=== PATIENT | female | born 1945 | race Caucasian/White ===

== ENCOUNTER → 2017-04-30 11:07 | Outpatient (CLI) | payer MEDICARE, SELFPAY ==
[2017-04-30 12:43] LABS: AST(SGOT) 19 U/L (15-37); Alanine Aminotransfer ALT/SGPT 17 U/L (12-78); Albumin, Serum 3.4 g/dL (3.4-5.0); Alkaline Phosphatase 62 U/L (45-117); Cholesterol 186 mg/dL (200); Globulin 3.9 g/dL (2.2-4.2); High Density Lipoprotein 73 mg/dL; Protein, Total 7.3 g/dL (6.4-8.2); Triglycerides 128 mg/dL; Very Low Density Lipoprotein 26 mg/dL (5-40)
== END ==
PROVIDERS: Family Provider Internal Medicine; PCP Internal Medicine; Visit Provider Internal Medicine
DX: E78.00 Pure hypercholesterolemia, unspecified (principal)
CPT/HCPCS: 36415; 80061; 80076

== ENCOUNTER → 2017-05-14 08:48 | Outpatient (CLI) | payer MEDICARE, SELFPAY ==
[2017-05-14 08:56] LABS: Mucous, Urine 0 SEEN /hpf (<or=2+)
[2017-05-14 10:11] LABS: Color, Urine Yellow (Yellow); Glucose, Dipstick Normal (Normal); Ketone-Dipstick 5 mg/dl (Negative); Leukocyte Esterase-Dipstick 500 /ul (Negative); Nitrite-Dipstick Positive (Negative); Occult Blood-Urine 25 /ul (Negative); Protein-Dipstick 30 mg/dl (Negative); Specific Gravity, Urine 1.015 (1.002-1.030); Urine Bilirubin Dipstick Negative (Negative); Urine Clarity Turbid (Clear); Urine Urobilinogen Normal (Normal)
[2017-05-14 10:16] LABS: Absolute Lymphocyte Count 1.38 X10^3/ul (0.83-4.51); Absolute Neutrophil Count 6.2 X10^3/uL (2.0-7.7); Basophil# 0.03 X10^3/uL; Basophil% 0.4 % (0-1); Eosinophil# 0.15 X10^3/uL; Eosinophils% 1.8 % (0-5); Hematocrit 50.7 % (37-47); Hemoglobin 15.4 g/dl (12.0-15.0); Lymphocyte # 1.38 X10^3/ul (4.0); Lymphocyte % 16.8 % (19-41); Mean Corp Hgb Conc 30.4 g/gl (32-36); Mean Corpuscular Hgb 26.6 pg (27.0-32.0); Mean Corpuscular Volume 87.7 fL (81-99); Mean Platelet Vol. 9.9 fl (6.2-12.0); Monocyte% 4.9 % (0-10); Neutrophil # 6.22 X10^3/uL (2.7-7.7); Neutrophil % 75.9 % (47-70); POSITIVE COUNT NO; POSITIVE DIFFERENTIAL NO; POSITIVE MORPHOLOGY NO; Platelet Count 314 K/mm3 (150-450); RBC Distribution Width SD 47.7 fl (35.1-43.9); Red Blood Count 5.78 M/mm3 (4.2-5.4); White Blood Count 8.2 K/mm3 (4.4-11.0)
[2017-05-14 10:22] LABS: Bacteria 3+ /hpf (None Seen); Red Blood Cells-Urine 0-5 SEEN /hpf (0-5); Squamous Epithelial Cells - UA 0-5 SEEN /hpf (5-10); White Blood Cells 50-100 SEEN /hpf (0-5)
[2017-05-14 10:29] LABS: ALB/GLOB Ratio 1.1 RATIO (0.9-2.4); AST(SGOT) 13 U/L (15-37); Alanine Aminotransfer ALT/SGPT 19 U/L (13-56); Alkaline Phosphatase 87 U/L (45-117); Anion Gap 12 (5-15); BUN 11 mg/dL (7-18); BUN/Creat Ratio 12.6 RATIO (10-20); Calcium,Total 9.1 mg/dL (8.5-10.1); Chloride 102 mmol/L (98-107); Cholesterol 203 mg/dL (200); Creatinine, Serum 0.87 mg/dL (0.55-1.02); EST Glomerular Filtration Rate 68 mL/min (>60); Est Glom Filt Rate - Afr Amer 82 mL/min (>60); Ferritin 11 ng/mL (8-252); Globulin 3.8 g/dL (2.2-4.2); Glucose 111 mg/dL (74-106); High Density Lipoprotein 83 mg/dL; Iron 60 ug/dL (50-170); Iron Binding Capacity,Total 444 ug/dL (250-450); PERCENT IRON SATURATION 13.5 % (15.0-55.0); Potassium 3.9 mmol/L (3.5-5.1); Protein, Total 7.8 g/dL (6.4-8.2); Sodium Level 142 mmol/L (136-145); Thyroid Stim Hormone (TSH) 2.08 uIU/mL (0.358-3.74); Triglycerides 164 mg/dL; Very Low Density Lipoprotein 33 mg/dL (5-40)
[2017-05-14 10:40] LABS: Microalbumin:Creatinine Ratio 124.7 mg/g CRE (<30 mg/g CRE)
[2017-05-14 12:10] LABS: Vitamin B12 1008 pg/mL (211-911)
== END ==
PROVIDERS: Family Provider Internal Medicine; PCP Internal Medicine; Visit Provider Internal Medicine
DX: E61.1 Iron deficiency (principal); E11.9 Type 2 diabetes mellitus without complications; D51.8 Other vitamin B12 deficiency anemias
CPT/HCPCS: 36415; 80053; 80061; 81001; 82043; 82570; 82607; 82728; 83540; 83550; 84443; 85025

== ENCOUNTER → 2017-06-15 10:58 | Outpatient (CLI) | payer MEDICARE, SELFPAY | PROVIDERS: Family Provider Internal Medicine; PCP Internal Medicine; Visit Provider Internal Medicine | DX: R00.0 Tachycardia, unspecified (principal) | CPT/HCPCS: 93225; 93226 ==

== ENCOUNTER → 2017-07-19 10:45 | Outpatient (CLI) | payer MEDICARE, SELFPAY ==
--- NOTE | 2017-07-19 10:51 | BI_ITS ---
MAMMOGRAPHY - UNILATERAL SCREENING: LEFT BREAST REASON FOR EXAM: Female, 71 years old. Routine annual screening examination (unilateral). PERTINENT HISTORY: Personal history of breast cancer. Prior right mastectomy and chemotherapy. TECHNIQUE: Digital unilateral breast latanya (3D mammographic acquisition) in the CC and MLO projections. 2-D mediolateral oblique (MLO) and craniocaudad (CC) views of both breasts were obtained. CAD: Full Field Digital Mammography with Computer Added Detection was performed. COMPARISON: Comparison is made with prior study of June 17, 2016 and June 17, 2015. FINDINGS: Breast Composition: There are scattered areas of fibroglandular density. There are no dominant masses or suspicious calcifications. A tissue clip marker is once again seen in the retroareolar region of the left breast. No other significant abnormalities are identified. There has been no significant change since the prior study. BI/UNILAT LT SCRN W/CAD IMPRESSION: Stable unilateral screening mammogram. Yearly follow-up mammogram recommended. (A) ASSESSMENT CATEGORY: BIRADS Category 1: Negative. A letter regarding these results will be sent to the patient by the facility within 30 days. Approximately 10% of breast cancers are not detected by mammography. A normal mammogram should not delay biopsy of a clinically suspicious abnormality. [id number] Electronically Signed: Tae Ashford MD at 12:25 EDT Tel [phone], Service support ,
== END ==
PROVIDERS: Family Provider Internal Medicine; PCP Internal Medicine; Visit Provider Internal Medicine Hematology & Oncology
DX: Z12.31 Encounter for screening mammogram for malignant neoplasm of breast (principal)
CPT/HCPCS: 77061; 77067; G0279

== ENCOUNTER → 2017-07-29 13:46 | Outpatient (CLI) | payer MEDICARE, SELFPAY ==
--- NOTE | 2017-07-29 13:48 | CT_ITS ---
STUDY: CT ABDOMEN AND PELVIS WITHOUT CONTRAST REASON FOR EXAM: Female, 71 years old. Left sided pain RADIATION DOSAGE (If Supplied By Facility): CTDIvol = ( 13.5 ) mGy, DLP = ( 604.66 ) mGycm TECHNIQUE: Transaxial images were obtained from the dome of the diaphragm to the symphysis pubis without oral contrast, and without intravenous contrast. Sagittal and coronal images were reconstructed. Individualized dose optimization techniques were used for this CT. COMPARISON: None. FINDINGS: The visualized lung bases are unremarkable. The visualized portions of the heart are within normal limits. Normal liver. Status post cholecystectomy. No significant dilatation of the extrahepatic biliary system. Normal spleen. Normal pancreas. Normal bilateral adrenal glands. 5 mm probable cyst of the right kidney. Normal left kidney. Hiatal hernia. Prior surgery at the GE junction. Possible wall thickening at the third portion of the duodenum. Normal colon. The appendix is not visualized. Calcified abdominal aorta. Normal inferior vena cava. Normal retroperitoneum. Normal urinary bladder. Normal uterus. Normal abdominal wall. Normal osseous structures. CT/Abdomen/Pelvis without Cont IMPRESSION: Probable right renal cyst at the lower pole. Hiatal hernia. Possible wall thickening at the third portion of duodenum. No bowel obstruction. Electronically Signed: Ata Mary DO at 20:14 EDT Tel [phone], Service support ,
== END ==
PROVIDERS: Family Provider Internal Medicine; PCP Internal Medicine; Visit Provider Nurse Practitioner
DX: K44.9 Diaphragmatic hernia without obstruction or gangrene (principal); M54.9 Dorsalgia, unspecified
CPT/HCPCS: 74176

== ENCOUNTER → 2017-10-25 15:34 | Outpatient (CLI) | payer MEDICARE, SELFPAY | PROVIDERS: Visit Provider Nurse Practitioner Adult Health | DX: R82.99 Other abnormal findings in urine (principal) | CPT/HCPCS: 87077; 87086; 87088; 87186 ==

== ENCOUNTER → 2017-11-12 08:35 | Outpatient (CLI) | payer MEDICARE, SELFPAY ==
[2017-11-12 08:45] LABS: Bacteria 0 SEEN /hpf (None Seen); Mucous, Urine 0 SEEN /hpf (<or=2+); Red Blood Cells-Urine 0 SEEN /hpf (0-5)
[2017-11-12 10:02] LABS: Absolute Lymphocyte Count 1.18 X10^3/ul (0.83-4.51); Absolute Neutrophil Count 5.5 X10^3/uL (2.0-7.7); Basophil# 0.03 X10^3/uL; Basophil% 0.4 % (0-1); Eosinophil# 0.21 X10^3/uL; Eosinophils% 2.9 % (0-5); Hemoglobin 12.9 g/dl (12.0-15.0); Lymphocyte # 1.18 X10^3/ul (4.0); Lymphocyte % 16.1 % (19-41); Mean Corp Hgb Conc 30.7 g/gl (32-36); Mean Corpuscular Hgb 25.4 pg (27.0-32.0); Mean Corpuscular Volume 82.8 fL (81-99); Mean Platelet Vol. 9.4 fl (6.2-12.0); Monocyte# 0.39 X10^3/uL; Monocyte% 5.3 % (0-10); Neutrophil # 5.51 X10^3/uL (2.7-7.7); Neutrophil % 74.9 % (47-70); Platelet Count 308 K/mm3 (150-450); RBC Distribution Width CV 15.7 % (11.6-14.6); Red Blood Count 5.07 M/mm3 (4.2-5.4); White Blood Count 7.4 K/mm3 (4.4-11.0)
[2017-11-12 10:03] LABS: POSITIVE COUNT NO; POSITIVE DIFFERENTIAL NO; POSITIVE MORPHOLOGY NO
[2017-11-12 10:10] LABS: Color, Urine Yellow (Yellow); Glucose, Dipstick Normal (Normal); Ketone-Dipstick Negative (Negative); Leukocyte Esterase-Dipstick 500 /ul (Negative); Nitrite-Dipstick Positive (Negative); Occult Blood-Urine 10 /ul (Negative); Protein-Dipstick 30 mg/dl (Negative); Specific Gravity, Urine 1.015 (1.002-1.030); Urine Bilirubin Dipstick Negative (Negative); Urine Clarity Sl. Cloudy (Clear); Urine Urobilinogen Normal (Normal); Urine pH 6.5 (5.0 - 8.0)
[2017-11-12 10:24] LABS: ALB/GLOB Ratio 0.9 RATIO (0.9-2.4); AST(SGOT) 14 U/L (15-37); Alanine Aminotransfer ALT/SGPT 17 U/L (13-56); Albumin, Serum 3.4 g/dL (3.2-5.0); Alkaline Phosphatase 71 U/L (45-117); Anion Gap 11 (5-15); BUN 12 mg/dL (7-18); BUN/Creat Ratio 14.2 RATIO (10-20); Calcium,Total 9.2 mg/dL (8.5-10.1); Chloride 104 mmol/L (98-107); Cholesterol 161 mg/dL (200); Creatinine, Serum 0.84 mg/dL (0.55-1.02); EST Glomerular Filtration Rate 70 mL/min (>60); Est Glom Filt Rate - Afr Amer 85 mL/min (>60); Ferritin 7 ng/mL (8-252); Globulin 3.6 g/dL (2.2-4.2); Glucose 117 mg/dL (74-106); High Density Lipoprotein 66 mg/dL; Iron 38 ug/dL (50-170); Iron Binding Capacity,Total 373 ug/dL (250-450); PERCENT IRON SATURATION 10.2 % (15.0-55.0); Sodium Level 143 mmol/L (136-145); Thyroid Stim Hormone (TSH) 1.16 uIU/mL (0.358-3.74); Triglycerides 167 mg/dL; Very Low Density Lipoprotein 33 mg/dL (5-40)
[2017-11-12 10:25] LABS: Amorphous Sediment 1+; Squamous Epithelial Cells - UA 0-5 SEEN /hpf (5-10); White Blood Cells 5-10 SEEN /hpf (0-5)
[2017-11-12 10:34] LABS: Microalbumin,Random Urine 66.5 mg/L (NO RANGE EST.); Microalbumin:Creatinine Ratio 50.4 mg/g CRE (<30 mg/g CRE)
== END ==
PROVIDERS: Family Provider Internal Medicine; PCP Internal Medicine; Visit Provider Internal Medicine
DX: D51.8 Other vitamin B12 deficiency anemias (principal); D50.9 Iron deficiency anemia, unspecified; E11.42 Type 2 diabetes mellitus with diabetic polyneuropathy; R31.9 Hematuria, unspecified
CPT/HCPCS: 80053; 80061; 81001; 82043; 82570; 82728; 83540; 83550; 84443; 85025; 87086; 87088

== ENCOUNTER → 2018-03-17 09:45 | Outpatient (CLI) | payer MEDICARE, SELFPAY ==
--- NOTE | 2018-03-17 09:48 | NM_ITS ---
CLINICAL: 72-year-old female with reported history of carcinoma of the breast. WHOLE BODY 99m Tc MDP RADIONUCLIDE BONE SCINTIGRAPHY COMPARISON: None available FINDINGS: Following the intravenous administration of 25.7 mCi of 99m Tc MDP, whole body bone images reveal: 1. Increased radiopharmaceutical concentration is identified in the 10th thoracic vertebra posteriorly on the right, the medial and lateral tibiofemoral compartments of the right knee, acromioclavicular compartments of both shoulders, sternoclavicular compartment of the left shoulder, mid cervical spine posteriorly on the left and right, lower cervical spine posteriorly on the left, bilateral hip articulations, the right elbow, right-left midfoot. 2. The remaining skeletal structures are scintigraphically unremarkable with normal-appearing renal images and urinary bladder activity identified. NM/Bone Scan Whole Body IMPRESSION: 1. The increase in radiopharmaceutical concentration identified in the cervical and thoracic spine, bilateral shoulders, right elbow, right knee, hips bilaterally, right-left midfoot, is most consistent with degenerative arthritis. Plain film radiography correlation may be of benefit in the region of the 10th thoracic vertebra. 2. There is no definitive typical scintigraphic evidence of diffuse axial skeletal metastatic disease on the current examination. Electronically Signed: Ihsan Irvin DO at 23:23 EST Tel , Service support ,
--- OUTSIDE RECORDS SUMMARY | 2018-05-03 03:41 | XMS RPT_ITS ---
:1945 Author Organization [facility] Support Name Relationship Address Phone [address] TOLEDO [address] + [place] [address] [place] [id number] + [place] [address] R Unknown Unavailable Unavailable B[address]NA TOLEDO [address] + [place] [address] [address] + [place] [address] R Unknown Unavailable Unavailable B[address]O [address] + [place] [address] + [place] [address] R Unknown Unavailable Unavailable [address]O [address] + [place] [address] [address] + [place] [address] R Unknown Unavailable Unavailable Marv Toledo Mother Unavailable + Paris, Beena Grandparent Unavailable + Paris, Marv Mother Unavailable + Paris, Beena Grandparent Unavailable + Paris, Marv Mother Unavailable + Paris, Beena Grandparent Unavailable + [address] TOL[address]O [address] + [place] [address] [place] [id number] + [place] [address] R Unknown Unavailable Unavailable B[address]O [address] + [place] [address] [address]O [address] + [place] [address] R Unknown Unavailable Unavailable [place] [facility] [address] + [place] [address] [facility] [id number] [place] [address] RD + [place] [address] R Unknown Unavailable Unavailable [place] [facility] [address] + [place] [address] PARISFELICIA STONER [address] + [place] [address] R Unknown Unavailable Unavailable [place] [facility] [address] + [place] [address] PARISFELICIA STONER [facility] [id number] [place] [address] RD + [place] [address] R Unknown Unavailable Unavailable [place] [facility] [address] + [place] [address] FELICIA TOLEDO [address] + [place] [address] R Unknown Unavailable Unavailable Care Team Providers Name Role Phone ANTONIO TINAJERO (OUTBOARD MOTOR INSPECTOR) Attending Unavailable ANTONIO TINAJERO (OUTBOARD MOTOR INSPECTOR) Referring Unavailable ANTONIO TINAJERO (OUTBOARD MOTOR INSPECTOR) Attending Unavailable ANTONIO TINAJERO (OUTBOARD MOTOR INSPECTOR) Referring Unavailable Ricardo Lombardo Attending Unavailable Fe, Analilia Referring Unavailable Fe, Analilia Primary Care Unavailable Ricardo Lombardo Attending Unavailable Fe, Analilia Referring Unavailable Fe, Analilia Primary Care Unavailable Ricardo Lombardo Attending Unavailable Fe, Analilia Referring Unavailable Fe, Analilia Primary Care Unavailable Fe DO, Analilia Attending Unavailable Fe DO, Analilia Referring Unavailable Fe DO, Analilia Consulting Unavailable Antonio Tinajero FACT CHECKER-C Attending Unavailable Antonio Tinajero FACT CHECKER-C Referring Unavailable Fe, Analilia Primary Care Unavailable Fe, Analilia Attending Unavailable Fe, Analilia Referring Unavailable Fe, Analilia Primary Care Unavailable Fe, Analilia Attending Unavailable Fe, Analilia Referring Unavailable Fe, Analilia Primary Care Unavailable Fe, Analilia Attending Unavailable Fe, Analilia Primary Care Unavailable Fe, Analilia Referring Unavailable HinaGeorgeca Salud Consulting Unavailable Fe, Analilia Attending Unavailable Fe, Analilia Referring Unavailable Fe, Analilia Primary Care Unavailable Mascprimitivo, Tian Attending Unavailable Masci, Tian Referring Unavailable Fe, Analilia Primary Care Unavailable Rihcard Doss Attending Unavailable Fe, Analilia Referring Unavailable Ciesa, Brie Attending Unavailable Ciesa, Brie Referring Unavailable Fe, Analilia Primary Care Unavailable Hina, Minnie M Attending Unavailable Fe, Analilia Primary Care Unavailable Hina, Minnie M Referring Unavailable Hina, Minnie M Attending Unavailable Purpose Purpose PROBLEMS PROBLEMS DATE TYPE CONDITION / CODE ATTENDING STATUS SOURCE 10/26/2017 Unknown R82.99 - Other Minnie Santamaria abnormal findings M Community in urine / Hospital R82.99(ICD-10) Repository 09/14/2017 Admitting Gastro-esophageal Pozsgay, TiVUS Diagnosis reflux disease System without esophagitis Repository / K21.9(ICD-10) 09/14/2017 Admitting Acquired absence of Pozsgay, TiVUS Diagnosis other specified System parts of digestive Repository tract / Z90.49(ICD-10) 09/14/2017 Admitting Unspecified Pozsgay, TiVUS Diagnosis osteoarthritis, System unspecified site / Repository M19.90(ICD-10) 09/14/2017 Admitting Anemia, unspecified Pozsgay, TiVUS Diagnosis / D64.9(ICD-10) System Repository 09/10/2017 Admitting Diaphragmatic Pozsgay, TiVUS Diagnosis hernia without System obstruction or Repository gangrene / K44.9(ICD-10) 09/10/2017 Admitting Right upper Pozsgay, TiVUS Diagnosis quadrant pain / System R10.11(ICD-10) Repository 07/19/2017 Unknown Z12.31 - Encounter Tian Raya Active Tatiana for screening Community mammogram for Hospital malignant neoplasm Repository of breast / Z12.31(ICD-10) 07/16/2017 Unknown R00.0 - Richard Doss Active [place] Tachycardia, Community unspecified / Hospital R00.0(ICD-10) Repository 05/14/2017 Unknown E61.1 - Iron Fe, Active [place] deficiency / [facility] E61.1(ICD-10) Hospital Repository 05/14/2017 Unknown E11.9 - Type 2 Fe, Active [place] diabetes mellitus [facility] without Hospital complications / Repository E11.9(ICD-10) PROCEDURES PROCEDURES No Procedure Records FoundVITAL SIGNS VITAL SIGNS No Vital Signs Records FoundRESULTS RESULTS BONE SCAN WHOLE Observed: 03/17/2018 Status: F Source: [place] BODY 9:48 AM [facility] REPOSITORY [facility] Imaging Services [address] [address] Bone Scan Whole Body MR#: [id number] Acct: [id number] Name: HERNESTO TOLEDO Rep #: [id number] : 1945 F 72 From: Ihsan Irvin DO PCP: Analilia Palacios DO Status: REG CLI Study: Bone Scan Whole Body Date of Exam: 03/17/18 Exam# [id number] Ordering Dr: Antonio Tinajero FACT CHECKER-C CLINICAL: 72-year-old female with reported history of carcinoma of the breast. WHOLE BODY 99m Tc MDP RADIONUCLIDE BONE SCINTIGRAPHY COMPARISON: None available FINDINGS: Following the intravenous administration of 25.7 mCi of 99m Tc MDP, whole body bone images reveal: 1. Increased radiopharmaceutical concentration is identified in the 10th thoracic vertebra posteriorly on the right, the medial and lateral tibiofemoral compartments of the right knee, acromioclavicular compartments of both shoulders, sternoclavicular compartment of the left shoulder, mid cervical spine posteriorly on the left and right, lower cervical spine posteriorly on the left, bilateral hip articulations, the right elbow, right-left midfoot. 2. The remaining skeletal structures are scintigraphically unremarkable with normal-appearing renal images and urinary bladder activity identified. NM/Bone Scan Whole Body IMPRESSION: 1. The increase in radiopharmaceutical concentration identified in the cervical and thoracic spine, bilateral shoulders, right elbow, right knee, hips bilaterally, right-left midfoot, is most consistent with degenerative arthritis. Plain film radiography correlation may be of benefit in the region of the 10th thoracic vertebra. 2. There is no definitive typical scintigraphic evidence of diffuse axial skeletal metastatic disease on the current examination. Electronically Signed: Ihsan Irvin DO at 23:23 EST Tel , Service support , CC: MOI- Antonio Tinajero; Analilia Palacios DO [employer]visor [employer] Former: Signed CNOVSP Observed: 03/14/2018 Status: COMPLETED Source: [place] 1:30 PM [facility] REPOSITORY Visit (SP) Office ([place]) HERNESTO TOLEDO ([id number]) 1945 F [facility] Date Time Provider Department 03/14/18 1:30 PM ANTONIO TINAJERO During your visit today, we recorded the following information about you: Temperature Pulse Blood pressure Weight 98.1 degrees 108/minute 126/75 65.8 kg Antonio Tinajero, MANAGER SHIFT.OUTBOARD MOTOR INSPECTOR 03/15/2018 8:16 AM Signed Chief Complaint No chief complaint on file. HPI: Hernesto Toledo is a 72 year old female who presents here today for follow up breast cancer. H/o appreciated a mass in her right breast. Diagnostic mammogram at 10 o'clock 3 cm from nipple was observed. It was solid on US. ?? Biopsy 06/28/2013: Invasive ductal carcinoma. ER>95% VA 2% HER2 2+ Non-amplified by FISH testing. ?? Mastectomy with SLN biopsy 07/12/2013: 3.5 cm invasive ductal carcinoma. Grade III Margins negative--closest 5 mm posterior. No LV invasion. None of 4 SLN involved. ?? Oncotype Dx--Recurrence score 30 (20% risk). Received TC. ?? Pt. admitted to [facility] for neutropenia/UTI 11/17-11/20/13. ? Current therapy:Arimidex Began 12/2013. ? Per Dr. Raya's previous note pt. was to have rib xrays and bone scan at [facility] 2016. Pt. did not have this done. I keep forgetting. ? My R knee has arthritis. I have this tenderness to my left breast that comes and goes. It really hurts if you mash on it. ? Appetite:It's good?Energy level:fair Denies fevers or recent illness. Resp:denies cough or sob Cardiac:denies chest pain/palpitations GI:denies abd pain sometimes I get pain where that mesh is after my hiatal hernia repair, the reflux is bad, my hiatal hernia is back.- This has been evaluated by her surgeon. I'm not having a surgery again, occasional n/v, moving bowels regularly-occ. constipation :denies dysuria/hematuria Extrem:R knee pain, occ. low back pain h/o DJD, denies pain currently Endo:I don't get hot flashes-I will just sometimes break out in a sweat. 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 Past medical history, appointments, medications, allergies reviewed. No changes. EXAM: BP 126/75 Pulse 108 Temp 36.7 ?C (98.1 ?F) Wt 65.8 kg (145 lb) BMI 29.29 kg/m? APPEARANCE Well appearing, anxious, alert, in no acute distress, well-hydrated, well nourished. HEART RRR with normal S1 and S2, no murmurs LUNG clear to auscultation BREAST FEMALE R mastectomy scar, no nodule, L no mass/nodule, +tenderness to outer L breast LYMPH NODES No cervical lymphadenopathy, No supraclavicular lymphadenopathy and No axillary lymphadenopathy. ABDOMEN bowel sounds normoactive, no bruits, soft, non-tender, non-distended, without organomegaly or palpable masses EXTREMITIES No edema NEURO Awake, alert and oriented x 3, Normal gait and No involuntary motions. SKIN Skin color, texture, turgor normal, no suspicious rashes or lesions ASSESSMENT/PLAN: 1. 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 2. Breast pain, left - ICD9: 611.71, ICD10: N64.4 - L breast pain. - Continue arimidex-tolerating well. - L mammogram due in July 2018. - See Dr. Raya's previous AVS (01/2017). Pt. did not have the bone scan or rib xrays at [facility]. Please schedule. - Add L dx mamm/US L breast re:L breast pain. - Follow up in 6 months-pending the above. - Pt. aware to call office with any questions/concerns. The patient indicates understanding of these issues and agrees with the plan. Antonio Tinajero APRN.OUTBOARD MOTOR INSPECTOR Glenna Cordova LPN, ERIK 03/14/2018 1:30 PM Signed 6 month f/u Glenna Cordova LPN Referring Provider: ANTONIO TINAJERO [[id number]] Allergies As of Date: 03/14/2018 Noted Allergy Reaction MORPHINE 12/15/2006 2 - Rash Comments: Broke out in rash 25 years ago Date Reviewed: 03/14/2018 Reviewed by: Antonio Tinajero - Fully Assessed Primary Visit Diagnosis:Malignant neoplasm of upper-outer quadrant of right breast in female, estrogen receptor positive (HCC) [C50.411, Z17.0] Other Visit Diagnosis:Breast pain, left [N64.4] Order(s):NM BONE WHOLE BODY [2619992] Order #: [id number] FUTURE XR RIBS 2V AP/OBL LT [[id number]] Order #: [id number] FUTURE US BREAST LTD LT [[id number]] Order #: [id number] FUTURE DOMINGO DIAGNOSTIC LT [[id number]] Order #: [id number] FUTURE Follow-up and Disposition History Recorded Prescriptions as of 03/14/2018 Sig: ANASTROZOLE 1 MG TABLET TAKE ONE TABLET BY MOUTH ONCE* ATORVASTATIN 10 MG TABLET 1 tablet once daily. CALCIUM ORAL Take 1 tablet by mouth once d* AZO CRANBERRY ORAL Take 1 tablet by mouth once d* FISH OIL ORAL Take 1 capsule by mouth once * DULOXETINE 60 MG CAPSULE,STEPHEN* Take 60 mg by mouth once lacho* GABAPENTIN 300 MG CAPSULE Take 1 capsule by mouth three* PROBIOTIC ORAL Take 1 capsule by mouth once * MEDICATION, NON-DATABASE Magna-life cream for neuropat* METFORMIN ER 500 MG TABLET,EX* Take 500 mg by mouth once sam* MULTIVITAMIN TABLET Take 1 tablet by mouth once d* NAPROXEN SODIUM 220 MG TABLET Take 440 mg by mouth as neede* OMEPRAZOLE 40 MG CAPSULE,STEPHEN* Take 40 mg by mouth once lacho* VITAMIN D2 50,000 UNIT CAPSULE 1 tablet once each week. Medication notes this encounter CHOLECALCIFEROL (VITAMIN D3) 2,000 UNIT TABLET >> Glenna Cordova LPN, LPN 03/14/2018 1:22 PM >> GLENNA CORDOVA WedMar 14, 2018 1:22 PM discontinued ETODOLAC 400 MG TABLET >> Glenna Cordova LPN, LPN 03/14/2018 1:26 PM >> GLENNA CORDOVA WedMar 14, 2018 1:26 PM discontinued Problem List As Of Date 03/14/2018 Noted Resolved Hiatal Hernia [K44.9] INVALID FOR* Iron Deficiency Anemia [D50.9] INVALID FOR* Abnormal mammogram, unspecified [R92.8] INVALID FOR* Lump or mass in breast [N63.0] INVALID FOR* Breast cancer (HCC) [C50.919] INVALID FOR*01/26/2017 Cellulitis [L03.90] INVALID FOR* Drug induced neutropenia(288.03) (HCC) [D70.2] INVALID FOR* Breast lump [N63.0] INVALID FOR* Malignant neoplasm of upper-outer quadrant of r*INVALID FOR* Visit Notes: >> Glenna Whyte (Erik) ERIK Cordova WedMar 14, 2018 1:27 PM Status: Signed 6 month f/u Glenna Cordova LPN Encounter Status:Closed by ANTONIO TINAJERO CNP on 03/15/18 PROGRESS Observed: 03/14/2018 Status: COMPLETED Source: [place] 1:20 PM [facility] RE[facility]IT[facility] HNO ID: [id number] Author: Antonio Tinajero Service: (none) Author Type: Nurse Practitioner Type: Progress Notes Filed: 03/15/2018 8:16 AM Note Text: Chief Complaint No chief complaint on file. HPI: Hernesto Toledo is a 72 year old female who presents here today for follow up breast cancer. H/o appreciated a mass in her right breast. Diagnostic mammogram at 10 o'clock 3 cm from nipple was observed. It was solid on US. ?? Biopsy 06/28/2013: Invasive ductal carcinoma. ER>95% VA 2% HER2 2+ Non-amplified by FISH testing. ?? Mastectomy with SLN biopsy 07/12/2013: 3.5 cm invasive ductal carcinoma. Grade III Margins negative--closest 5 mm posterior. No LV invasion. None of 4 SLN involved. ?? Oncotype Dx--Recurrence score 30 (20% risk). Received TC. ?? Pt. admitted to [facility] for neutropenia/UTI 11/17-11/20/13. ? Current therapy:Arimidex Began 12/2013. ? Per Dr. Raya's previous note pt. was to have rib xrays and bone scan at [facility] 2016. Pt. did not have this done. I keep forgetting. ? My R knee has arthritis. I have this tenderness to my left breast that comes and goes. It really hurts if you mash on it. ? Appetite:It's good?Energy level:fair Denies fevers or recent illness. Resp:denies cough or sob Cardiac:denies chest pain/palpitations GI:denies abd pain sometimes I get pain where that mesh is after my hiatal hernia repair, the reflux is bad, my hiatal hernia is back.-This has been evaluated by her surgeon. I'm not having a surgery again, occasional n/v, moving bowels regularly-occ. constipation :denies dysuria/hematuria Extrem:R knee pain, occ. low back pain h/o DJD, denies pain currently Endo:I don't get hot flashes-I will just sometimes break out in a sweat. 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 Past medical history, appointments, medications, allergies reviewed. No changes. EXAM: BP 126/75 Pulse 108 Temp 36.7 ?C (98.1 ?F) Wt 65.8 kg (145 lb) BMI 29.29 kg/m? APPEARANCE Well appearing, anxious, alert, in no acute distress, well-hydrated, well nourished. HEART RRR with normal S1 and S2, no murmurs LUNG clear to auscultation BREAST FEMALE R mastectomy scar, no nodule, L no mass/nodule, +tenderness to outer L breast LYMPH NODES No cervical lymphadenopathy, No supraclavicular lymphadenopathy and No axillary lymphadenopathy. ABDOMEN bowel sounds normoactive, no bruits, soft, non-tender, non-distended, without organomegaly or palpable masses EXTREMITIES No edema NEURO Awake, alert and oriented x 3, Normal gait and No involuntary motions. SKIN Skin color, texture, turgor normal, no suspicious rashes or lesions ASSESSMENT/PLAN: 1. 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 2. Breast pain, left - ICD9: 611.71, ICD10: N64.4 - L breast pain. - Continue arimidex-tolerating well. - L mammogram due in July 2018. - See Dr. Raya's previous AVS (01/2017). Pt. did not have the bone scan or rib xrays at [facility]. Please schedule. - Add L dx mamm/US L breast re:L breast pain. - Follow up in 6 months-pending the above. - Pt. aware to call office with any questions/concerns. The patient indicates understanding of these issues and agrees with the plan. Antonio Tinajero APRN.OUTBOARD MOTOR INSPECTOR CBC W/DIFF, AUTOMATED Collected: 11/12/2017 Status: F Source: [place] 8:42 AM [facility] REPOSITORY Order Comment: MORE ORDERED CULTURE DR PALACIOS ORDERED ALL OTHER LABS TYPE CODE TESTS RESULT OUT OF RANGE REFERENCE UNITS LAB L100.1000 4.4-11.0 K/mm3 Normal WBC 7.4 LAB L100.1200 4.2-5.4 M/mm3 Normal RBC 5.07 LAB L100.1300 12.0-15.0 g/dl Normal HGB 12.9 LAB L100.1400 37-47 % Normal HCT 42.0 LAB L100.1500 81-99 fL Normal MCV 82.8 LAB L100.1600 27.0-32.0 pg Low MCH 25.4 LAB L100.1700 32-36 g/gl Low MCHC 30.7 LAB L100.1810 11.6-14.6 % High RDW CV 15.7 LAB L100.1820 35.1-43.9 fl High RDW SD 47.0 LAB L100.1900 150-450 K/mm3 Normal PLT 308 LAB L100.2000 6.2-12.0 fl Normal MPV 9.4 LAB L100.2100 47-70 % High NEUT% 74.9 LAB L100.2200 19-41 % Low LY% 16.1 LAB L100.2300 0-10 % Normal MONO% 5.3 LAB L100.2400 0-5 % Normal EO% 2.9 LAB L100.2500 0-1 % Normal BASO% 0.4 LAB L100.2550 0.0-0.9 % Normal IM GRAN % 0.400 Result Comment: IG% - Immature Granulocytes (promyelocytes, myelocytes and metamyelocytes) > 1% indicates that a LEFT SHIFT is Present. LAB L100.2620 2.0-7.7 X10 3/uL Normal Absolute Neut 5.5 LAB L100.2720 0.83-4.51 X10 3/ul Normal Absolute Lymph 1.18 Performed By: #### L100.0100 #### [facility] [address] [place], [address] URINALYSIS, COMPLETE Collected: 11/12/2017 Status: F Source: [place] 8:42 AM [facility] REPOSITORY Order Comment: MORE ORDERED CULTURE DR PALACIOS ORDERED ALL OTHER LABS How was Urine Obtained? CLEAN CATCH TYPE CODE TESTS RESULT OUT OF RANGE REFERENCE UNITS LAB L400.3000 Yellow COLOR Normal Yellow LAB L400.3050 Clear Normal CLARITY Sl. Cloudy LAB L400.3200 Normal mg/dl Normal GLUCOSE, UR Normal LAB L400.3300 Negative mg/dL Normal BILIRUBIN URINE Negative LAB L400.3400 Negative mg/dl Normal KETONE UR Negative LAB L400.3465 1.002-1.030 Normal SP.GR. DIPSTX 1.015 LAB L400.3550 5.0 - 8.0 pH UR Normal 6.5 LAB L400.3600 Negative mg/dl High PROT 30 DIPSTX LAB L400.3700 Normal mg/dl Normal UROBILI Normal LAB L400.3750 Negative High NITRITE UR Positive LAB L400.3780 Negative /ul High 10 OCCULT BLOOD-UR LAB L400.3800 Negative /ul High LEUK ESTERASE 500 LAB L400.4050 0-5 /hpf WBC Normal 5-10 SEEN LAB L400.4100 0-5 /hpf 0 Normal RBC-UA SEEN LAB L400.4150 5-10 /hpf SQUAM Normal EPI 0-5 SEEN LAB L400.4300 None Seen /hpf 0 Normal BACTERIA SEEN LAB L400.4350 <or=2+ /hpf 0 Normal MUCUS, URINE SEEN LAB L400.4900 1+ Normal AMORPHOUS Performed By: #### L400.0001 #### [facility] [address] [place], [address] COMPREHENSIVE METABOLIC Collected: 11/12/2017 Status: F Source: [facility] 8:42 AM [facility] REPOSITORY Order Comment: MORE ORDERED CULTURE DR PALACIOS ORDERED ALL OTHER LABS TYPE CODE TESTS RESULT OUT OF RANGE REFERENCE UNITS LAB L501.0100 74-106 mg/dL High GLU 117 Result Comment: Fasting Glucose result from 100 to 125 mg/dL suggests IMPAIRED HOMEOSTASIS per A.D.A. criteria. Please note revised GLUCOSE reference range effective 2017. LAB L501.1000 7-18 mg/dL Normal BUN 12 LAB L501.1100 0.55-1.02 mg/dL Normal CREAT,SERUM 0.84 Result Comment: The validity of the calculated GFR AND GFRAA in patients over 70 years has not been determined. Clinical correlation is essential. LAB L501.1110 >60 mL/min Normal EST GFR 70 Result Comment: Non- GFR Calc LAB L501.1115 >60 mL/min Normal EST GFR - AA 85 Result Comment: GFR Calc LAB L501.1300 10-20 RATIO Normal BUN/CRE 14.2 LAB L501.1500 6.4-8.2 g/dL T Normal PROT 7.0 LAB L501.1800 3.2-5.0 g/dL Normal ALB 3.4 LAB L501.1950 2.2-4.2 g/dL Normal GLOB 3.6 LAB L501.2000 0.9-2.4 RATIO Normal A/G 0.9 LAB L501.2200 8.5-10.1 mg/dL CA Normal 9.2 LAB L501.4100 15-37 U/L Low AST 14 LAB L501.4305 45-117 U/L Normal ALK P 71 LAB L501.4405 13-56 U/L Normal ALT 17 LAB L501.4600 0.20-1.00 mg/dL T Normal BILI 0.40 LAB L501.5300 136-145 mmol/L NA Normal 143 LAB L501.5600 3.5-5.1 mmol/L K Normal 4.0 LAB L501.5900 98-107 mmol/L CL Normal 104 LAB L501.6100 21.0-32.0 mmol/L Normal CO2 28.0 LAB L501.6200 5-15 Normal GAP 11 Performed By: #### L500.4050, L500.4100, L501.9520, L503.6030, L503.6550 #### [facility] [address] [place], [address] LIPID PROFILE Collected: 11/12/2017 Status: F Source: [place] 8:42 AM [facility] REPOSITORY Order Comment: MORE ORDERED CULTURE DR PALACIOS ORDERED ALL OTHER LABS TYPE CODE TESTS RESULT OUT OF RANGE REFERENCE UNITS LAB L501.4900 200 mg/dL Normal CHOL 161 Result Comment: <200 mg/dL Desirable 200-240 mg/dL Borderline >240 mg/dL High Risk LAB L501.5000 mg/dL Normal TRIG 167 Result Comment: The drugs N-Acetylcysteine and Metamizole may falsely depress this assay. Serum Triglycerides Reference Interval Normal <150 mg/dL Borderline high 150 - 199 mg/dL High 200 - 499 mg/dL Very High > or = 500 mg/dL LAB L501.6400 mg/dL Normal HDL 66 Result Comment: The drugs N-Acetylcysteine and Metamizole may falsely depress this assay. Reference Range HDL <40 mg/dL Low HDL Cholesterol HDL >or= 60 mg/dL High HDL Cholesterol LAB L501.6500 0-130 mg/dL Normal LDL 62 LAB L501.6600 5-40 mg/dL Normal VLDL 33 Performed By: #### L500.4050, L500.4100, L501.9520, L503.6030, L503.6550 #### [facility] [address] [place], [address] THYROID STIM HORMONE Collected: 11/12/2017 Status: F Source: [place] ([facility]) 8:42 AM [facility] REPOSITORY Order Comment: MORE ORDERED CULTURE DR PALACIOS ORDERED ALL OTHER LABS TYPE CODE TESTS RESULT OUT OF RANGE REFERENCE UNITS LAB L501.9520 0.358-3.74 uIU/mL Normal TSH 1.16 Performed By: #### L500.4050, L500.4100, L501.9520, L503.6030, L503.6550 #### [facility] [address] [place], [place], [id number] [phone] IRON+IRON BINDING Collected: 11/12/2017 Status: F Source: [place] 8:42 AM [facility] REPOSITORY Order Comment: MORE ORDERED CULTURE DR PALACIOS ORDERED ALL OTHER LABS TYPE CODE TESTS RESULT OUT OF RANGE REFERENCE UNITS LAB L503.6075 250-450 ug/dL TIBC Normal 373 LAB L503.6150 50-170 ug/dL Low IRON 38 LAB L503.6250 15.0-55.0 % Low IRON SATURATION 10.2 Performed By: #### L500.4050, L500.4100, L501.9520, L503.6030, L503.6550 #### [facility] [address] [place], [address] FERRITIN Collected: 11/12/2017 Status: F Source: [place] 8:42 AM [facility] REPOSITORY Order Comment: MORE ORDERED CULTURE DR PALACIOS ORDERED ALL OTHER LABS TYPE CODE TESTS RESULT OUT OF REFERENCE UNITS RANGE LAB L503.6550 8-252 ng/mL Low FERRITIN 7 Performed By: #### L500.4050, L500.4100, L501.9520, L503.6030, L503.6550 #### [facility] [address] [place], [address] MICROALB:CREAT Collected: 11/12/2017 Status: F Source: [place] RATIO,RANDOM UR 8:42 AM [facility] REPOSITORY Order Comment: MORE ORDERED CULTURE DR PALACIOS ORDERED ALL OTHER LABS TYPE CODE TESTS RESULT OUT OF RANGE REFERENCE UNITS LAB L501.1200 NO RANGE EST. mg/dL Normal UR CREAT 132.00 LAB L502.0500 NO RANGE EST. mg/L Normal 66.5 MICROALBUMIN ,UR LAB L502.0600 <30 mg/g CRE mg/g CRE High 50.4 MALB:CREAT Performed By: #### L502.0250 #### [facility] [address] [facility] [place], [place], [address] Observed: 11/12/2017 Status: F Source: [place] CULTURE, [place] 8:42 AM [facility] REPOSITORY MORE ORDERED CULTURE DR PALACIOS ORDERED ALL OTHER LABS Urine Culture ORGANISM 1: Mixed Gram Positive Organisms Slick Count 11,000-25,000 MIX CULTURE Mixed contaminants. Submit a new specimen if indicated. Performed By: #### M100.0650 #### [facility] [address] [facility] [place], [address] Observed: 10/25/2017 Status: F Source: [place] CULT[place], URINE 10:45 AM [facility] REPOSITORY Urine Culture ORGANISM 1: Citrobacter freundii Slick Count >100,000 Citrobacter freundii: REACTION Amikacin $ <=2 S Amoxacillin/Clavulanic Acid $ >=32 R Aztreonam $$$ 16 I Cefazolin $ >=64 R Cefepime $ <=1 S Ceftriaxone $ 16 I Ciprofloxacin $ >=4 R Ertapenim $$$ <=0.5 S Gentamicin $ <=1 S Imipenem *NF 0.5 S Levofloxacin $ >=8 R Meropenem $ <=0.25 S Nitrofurantoin $ <=16 S Tobramycin $ <=1 S Trimethoprim/Sulfametho $ >=320 R (NF) indicates non-formulary drug at [facility]. Approval by Infectious Disease Specialist required before non-formulary drugs may be ordered and/or dispensed. Citrobacter freundii: REACTION Amoxacillin/Clavulanic Acid $ >=32 R Cefazolin $ >=64 R Cefepime $ <=1 R Ceftriaxone $ 16 R Ciprofloxacin $ >=4 R Gentamicin $ <=1 S Imipenem *NF 0.5 R Levofloxacin $ >=8 R Nitrofurantoin $ <=16 S Tobramycin $ <=1 S Trimethoprim/Sulfametho $ >=320 R (NF) indicates non-formulary drug at [facility]. Approval by Infectious Disease Specialist required before non-formulary drugs may be ordered and/or dispensed. Performed By: #### M100.0650 #### [facility] [address] [place], [address] Observed: 09/14/2017 Status: F Source: [facility] SURGICAL PATHOLOGY 7:09 AM SYSTEM REPOSITORY [id number] [facility] PATHOLOGY AND LABORATORY MEDICINE [address] [place] [address] [id number] FINAL SURGICAL PATHOLOGY REPORT NAME: HERNESTO TOLEDO : 1945 71 Y F BILLING NO.: [id number] LOCATION: 1XEO PROCEDURE 09/14/2017 DATE: SURGEON: RICARDO LOMBARDO DO RECEIVED 09/14/2017 DATE: ATTENDING: RICARDO LOMBARDO DO REPORT DATE: 09/15/2017 COPIES TO: DIAGNOSIS: ESOPHAGUS, BIOPSY - UNREMARKABLE SQUAMOUS MUCOSA NEGATIVE FOR INTESTINAL METAPLASIA IVN/MARY JANE <Sign Out Dr. Hernadez> YVAN MEJIA M.D. CLINICAL INFORMATION: Abdominal pain SPECIMEN: ESOPHAGUS BIOPSY GROSS DESCRIPTION: Esophageal biopsies Received in formalin are multiple fragments of hall-white soft tissue aggregating to 0.5 x 0.3 x 0.1. The specimen is entirely submitted in a single cassette. (bits ns, 1) IVN/DENNY Disclaimer: The following statement applies to all immunohistochemistry, in situ hybridization, molecular studies, and immunofluorescence testing. The use of one or more reagents in the above tests is regulated as an analyte specific reagent (ASR). These tests were developed and their performance characteristics determined by the clinical laboratories of [facility]. They have not been cleared by the US Food and Drug Administration (FDA). The FDA has determined that such clearance or approval is not necessary. All the above immunostains were performed on paraffin embedded tissue. Appropriate positive and negative controls (where applicable) were run in parallel with the patient's specimen; these controls showed expected staining pattern, with acceptable intensity of staining. Immunohistochemical assays have not been validated on decalcified tissues. Results should be interpreted with caution given the raised possibility of false negativity on decalcified specimens. Professional Performing Location: [address] [address]. DEPARTMENT OF PATHOLOGY AND LABORATORY MEDICINE [place], [place] [address] RF UGI W/O KUB W/ Observed: 09/10/2017 Status: F Source: [facility] OR W/O DELAY FLM 9:41 AM SYSTEM REPOSITORY Patient Name: HERNESTO TOLEDO Fluoroscopy Exam Date/Time 09/10/2017 09:13:20 EDT Exam RF UGI w/o KUB and w/ or w/o Delay Flm Ordering Physician DO XIOMARA RICARDO Accession Number [id number] [facility] Codes 81033 () Reason For Exam recurrent hiatal hernia pain Report AIR CONTRAST UGI SERIES History: Left upper quadrant pain. Gastroesophageal reflux. Prior hiatal hernia repair. Comparison: 11/16/2010; 02/12/2010; 11/19/2009 Technique: Biphasic exam performed with barium and air. Fluoroscopy Time: 2.22 minutes 28 fluoroscopic spot images were obtained. Findings: Barium and air are administered. The esophagus is studied in the upright as well as the horizontal positions. There is a moderate-sized hiatal hernia with spontaneous gastroesophageal reflux to the upper esophagus. The esophagus is otherwise unremarkable. There is mild deformity of the gastric fundus in accordance with prior Anthony fundoplication. Multiple surgical clips are noted. The distal stomach is otherwise unremarkable and it empties without delay into an intact duodenal bulb and loop. The visualized proximal jejunum is unremarkable. A 13 mm barium tablet was given and traverses the esophagus into the stomach without delay. IMPRESSION: Moderate size hiatus hernia with gastroesophageal reflux. Anthony fundoplication with postsurgical changes at the gastric fundus. Unremarkable duodenum. Report Dictated on Final Dictating Physician: MD MUNROE AHMAD Signed Date and Time: 09/10/2017 10:50 am Signed by: MD MUNROE AHMAD Transcribed Date and Time: 09/10/2017 10:51 ABDOMEN/PELVIS WITHOUT Observed: 07/29/2017 Status: F Source: [place] CONT 1:48 PM [facility] REPOSITORY [facility] Imaging Services [address] [place] [address] Abdomen/Pelvis without Cont MR#: [id number] Acct: [id number] Name: HERNESTO TOLEDO Rep #: [id number] : 1945 F 71 From: Ata Mary DO PCP: Analilia Palacios DO Status: REG CLI Study: Abdomen/Pelvis without Cont Date of Exam: 07/29/17 Exam# [id number] Ordering Dr: Brie Blas STUDY: CT ABDOMEN AND PELVIS WITHOUT CONTRAST REASON FOR EXAM: Female, 71 years old. Left sided pain RADIATION DOSAGE (If Supplied By Facility): CTDIvol = ( 13.5 ) mGy, DLP = ( 604.66 ) mGycm TECHNIQUE: Transaxial images were obtained from the dome of the diaphragm to the symphysis pubis without oral contrast, and without intravenous contrast. Sagittal and coronal images were reconstructed. Individualized dose optimization techniques were used for this CT. COMPARISON: None. FINDINGS: The visualized lung bases are unremarkable. The visualized portions of the heart are within normal limits. Normal liver. Status post cholecystectomy. No significant dilatation of the extrahepatic biliary system. Normal spleen. Normal pancreas. Normal bilateral adrenal glands. 5 mm probable cyst of the right kidney. Normal left kidney. Hiatal hernia. Prior surgery at the GE junction. Possible wall thickening at the third portion of the duodenum. Normal colon. The appendix is not visualized. Calcified abdominal aorta. Normal inferior vena cava. Normal retroperitoneum. Normal urinary bladder. Normal uterus. Normal abdominal wall. Normal osseous structures. CT/Abdomen/Pelvis without Cont IMPRESSION: Probable right renal cyst at the lower pole. Hiatal hernia. Possible wall thickening at the third portion of duodenum. No bowel obstruction. Electronically Signed: Ata Mary DO at 20:14 EDT Tel [phone], Service support , CC: Brie Blas NP; Analilia Palacios DO [employer] Former: Signed PROGRESS Observed: 07/28/2017 Status: COMPLETED Source: [place] 10:39 AM [facility] REPOSITORY HNO ID: [id number] Author: Antonio Tinajero Service: (none) Author Type: Nurse Practitioner Type: Progress Notes Filed: 07/29/2017 8:28 AM Note Text: Chief Complaint Patient presents with: Established Patient HPI: Hernesto Toledo is a 71 year old female who presents here today for follow up breast cancer. H/o appreciated a mass in her right breast. Diagnostic mammogram at 10 o'clock 3 cm from nipple was observed. It was solid on US. ?? Biopsy 06/28/2013: Invasive ductal carcinoma. ER>95% VA 2% HER2 2+ Non-amplified by FISH testing. ?? Mastectomy with SLN biopsy 07/12/2013: 3.5 cm invasive ductal carcinoma. Grade III Margins negative--closest 5 mm posterior. No LV invasion. None of 4 SLN involved. ?? Oncotype Dx--Recurrence score 30 (20% risk). Received TC. ?? Pt. admitted to [facility] for neutropenia/UTI 11/17-11/20/13. ? Current therapy:Arimidex Began 12/2013. ? Per Dr. Raya's previous note pt. was to have rib xrays and bone scan at [facility]. Pt. did not have this done. Appetite:It's good Energy level:It's ok. Denies fevers or recent illness. Resp:denies cough or sob Cardiac:denies chest pain/palpitations, occ. pain to R chest surgical site GI:denies abd pain sometimes I get pain where that mesh is after my hiatal hernia repair-this has been evaluated by her surgeon, +reflux, n/v, moving bowels regularly-occ. constipation :denies dysuria/hematuria Extrem:occ. low back pain h/o DJD, denies pain currently Endo:I don't get hot flashes-I will just sometimes break out in a sweat. 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 Past medical history, appointments, medications, allergies reviewed. No changes. EXAM: BP 140/80 Pulse 100 Temp 36.6 ?C (97.9 ?F) (Oral) Wt 67.8 kg (149 lb 8 oz) BMI 30.2 kg/m2 APPEARANCE Well appearing, alert, in no acute distress, well-hydrated, well nourished. HEART RRR with normal S1 and S2, no murmurs LUNG clear to auscultation BREAST FEMALE R mastectomy scar, no nodule L no mass/nodule LYMPH NODES No cervical lymphadenopathy, No supraclavicular lymphadenopathy and No axillary lymphadenopathy. ABDOMEN bowel sounds normoactive, no bruits, soft, non-tender, non-distended, without organomegaly or palpable masses EXTREMITIES No edema NEURO Awake, alert and oriented x 3, Normal gait and No involuntary motions. SKIN Skin color, texture, turgor normal, no suspicious rashes or lesions RADIOLOGY: L mammogram 07/19/17: Done at [facility]. Will have scanned into EPIC. ASSESSMENT/PLAN: 1. Malignant neoplasm of upper-outer quadrant of right breast in female, estrogen receptor positive (HCC) - ICD9: 174.4, V86.0, ICD10: C50.411, Z17.0 - No concerning findings on exam. - Continue arimidex-tolerating well. - Reviewed L mammogram with pt. - L mammogram due in one year. - See Dr. Raya's previous AVS. Pt. did not have the bone scan or rib xrays at [facility]. Please schedule. - Follow up in 6 months-pending the above studies. - Pt. aware to call office with any questions/concerns. The patient indicates understanding of these issues and agrees with the plan. Antonio Tinajero APRN.CNP CNOVSP Observed: 07/28/2017 Status: COMPLETED Source: [place] 10:30 AM [facility] REPOSITORY Visit (SP) Office ([facility]) HERNESTO TOLEDO ([id number]) 1945 [facility] Date Time Provider Department 07/28/17 10:30 AM ANTONIO TINAJERO) [place] During your visit today, we recorded the following information about you: Temperature Pulse Blood pressure Weight 97.9 degrees 100/minute 140/80 67.8 kg Antonio Tinajero APRN.CNP 07/29/2017 8:28 AM Signed Chief Complaint Patient presents with: Established Patient HPI: Hernesto Toledo is a 71 year old female who presents here today for follow up breast cancer. H/o appreciated a mass in her right breast. Diagnostic mammogram at 10 o'clock 3 cm from nipple was observed. It was solid on US. ?? Biopsy 06/28/2013: Invasive ductal carcinoma. ERANDgt;95% VA 2% HER2 2+ Non-amplified by FISH testing. ?? Mastectomy with SLN biopsy 07/12/2013: 3.5 cm invasive ductal carcinoma. Grade III Margins negative--closest 5 mm posterior. No LV invasion. None of 4 SLN involved. ?? Oncotype Dx--Recurrence score 30 (20% risk). Received TC. ?? Pt. admitted to [facility] for neutropenia/UTI 11/17-11/20/13. ? Current therapy:Arimidex Began 12/2013. ? Per Dr. Raya's previous note pt. was to have rib xrays and bone scan at [facility]. Pt. did not have this done. Appetite:ANDquot;It's goodANDquot; Energy level:ANDquot;It's ok.ANDquot; Denies fevers or recent illness. Resp:denies cough or sob Cardiac:denies chest pain/palpitations, occ. pain to R chest surgical site GI:denies abd pain ANDquot;sometimes I get pain where that mesh is after my hiatal hernia repairANDquot;-this has been evaluated by her surgeon, +reflux, n/v, moving bowels regularly-occ. constipation :denies dysuria/hematuria Extrem:occ. 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 Past medical history, appointments, medications, allergies reviewed. No changes. EXAM: BP 140/80 Pulse 100 Temp 36.6 ?C (97.9 ?F) (Oral) Wt 67.8 kg (149 lb 8 oz) BMI 30.2 kg/m2 APPEARANCE Well appearing, alert, in no acute distress, well- hydrated, well nourished. HEART RRR with normal S1 and S2, no murmurs LUNG clear to auscultation BREAST FEMALE R mastectomy scar, no nodule L no mass/nodule LYMPH NODES No cervical lymphadenopathy, No supraclavicular lymphadenopathy and No axillary lymphadenopathy. ABDOMEN bowel sounds normoactive, no bruits, soft, non-tender, non-distended, without organomegaly or palpable masses EXTREMITIES No edema NEURO Awake, alert and oriented x 3, Normal gait and No involuntary motions. SKIN Skin color, texture, turgor normal, no suspicious rashes or lesions RADIOLOGY: L mammogram 07/19/17: Done at [facility]. Will have scanned into EPIC. ASSESSMENT/PLAN: 1. Malignant neoplasm of upper-outer quadrant of right breast in female, estrogen receptor positive (HCC) - ICD9: 174.4, V86.0, ICD10: C50.411, Z17.0 - No concerning findings on exam. - Continue arimidex-tolerating well. - Reviewed L mammogram with pt. - L mammogram due in one year. - See Dr. Raya's previous AVS. Pt. did not have the bone scan or rib xrays at [facility]. Please schedule. - Follow up in 6 months-pending the above studies. - Pt. aware to call office with any questions/concerns. The patient indicates understanding of these issues and agrees with the plan. Antonio Tinajero APRN.OUTBOARD MOTOR INSPECTOR Referring Provider: ANTONIO TINAJERO ([facility]) [[id number]] Allergies As of Date: 07/28/2017 Noted Allergy Reaction MORPHINE 12/15/2006 2 - Rash Comments: Broke out in rash 25 years ago Date Reviewed: 07/28/2017 Reviewed by: Antonio ([facility]) Tanvi - Fully Assessed Reason for Visit: Established Patient [175] Primary Visit Diagnosis:Malignant neoplasm of upper-outer quadrant of right breast in female, estrogen receptor positive (HCC) [C50.411, Z17.0] Follow-up and Disposition History Recorded Prescriptions as of 07/28/2017 Sig: ETODOLAC 400 MG TABLET Take 400 mg by mouth once sam* AZO CRANBERRY ORAL Take 1 tablet by mouth once d* DULOXETINE 60 MG CAPSULE,STEPHEN* Take 60 mg by mouth once lacho* ANASTROZOLE 1 MG TABLET Take 1 tablet by mouth once d* CHOLECALCIFEROL (VITAMIN D3) * Take 2,000 Units by mouth onc* METFORMIN ER 500 MG TABLET,EX* Take 500 mg by mouth once sam* PROBIOTIC ORAL Take 1 capsule by mouth once * MULTIVITAMIN TABLET Take 1 tablet by mouth once d* MEDICATION, NON-DATABASE Magna-life cream for neuropat* FISH OIL ORAL Take 1 capsule by mouth once * CALCIUM ORAL Take 1 tablet by mouth once d* NAPROXEN SODIUM 220 MG TABLET Take 440 mg by mouth as neede* GABAPENTIN 300 MG CAPSULE Take 1 capsule by mouth three* OMEPRAZOLE 40 MG CAPSULE,STEPHEN* Take 40 mg by mouth once lacho* Medication notes this encounter GABAPENTIN 300 MG CAPSULE >> Leonela Euceda MA 07/28/2017 10:38 AM >> EVERARDO MCCOYCONNORI WedJul 28, 2017 10:38 AM Taking one capsule twice daily. CRANBERRY ORAL >> Leonela Euceda MA 07/28/2017 10:39 AM >> LEONELA EUCEDA MA WedJul 28, 2017 10:39 AM No longer taking. Problem List As Of Date 07/28/2017 Noted Resolved Hiatal Hernia [K44.9] INVALID FOR* Iron Deficiency Anemia [D50.9] INVALID FOR* Abnormal mammogram, unspecified [R92.8] INVALID FOR* Lump or mass in breast [N63.0] INVALID FOR* Breast cancer (HCC) [C50.919] INVALID FOR*01/26/2017 Cellulitis [L03.90] INVALID FOR* Drug induced neutropenia(288.03) (HCC) [D70.2] INVALID FOR* Breast lump [N63.0] INVALID FOR* Malignant neoplasm of upper-outer quadrant of r*INVALID FOR* Encounter Status:Closed by ANTONIO TINAJERO OUTBOARD MOTOR INSPECTOR on 07/29/17 UNILAT LT SCRN Observed: 07/19/2017 Status: F Source: [place] W/CAD 10:53 AM [facility] REPOSITORY [facility] Imaging Services [address] [place] [address] [facility] SCRN W/CAD MR#: [id number] Acct: [id number] Name: HERNESTO TOLEDO Rep #: [id number] : 1945 F 71 From: Tae Ashford MD PCP: Analilia Palacios DO Status: REG CLI Study: UNILAT LT SCRN W/CAD Date of Exam: 07/19/17 Exam# [id number] Ordering Dr: Tian Raya DO MAMMOGRAPHY - UNILATERAL SCREENING: LEFT BREAST REASON FOR EXAM: Female, 71 years old. Routine annual screening examination (unilateral). PERTINENT HISTORY: Personal history of breast cancer. Prior right mastectomy and chemotherapy. TECHNIQUE: Digital unilateral breast latanya (3D mammographic acquisition) in the CC and MLO projections. 2-D mediolateral oblique (MLO) and craniocaudad (CC) views of both breasts were obtained. CAD: Full Field Digital Mammography with Computer Added Detection was performed. COMPARISON: Comparison is made with prior study of June 17, 2016 and June 17, 2015. FINDINGS: Breast Composition: There are scattered areas of fibroglandular density. There are no dominant masses or suspicious calcifications. A tissue clip marker is once again seen in the retroareolar region of the left breast. No other significant abnormalities are identified. There has been no significant change since the prior study. BI/UNILAT LT SCRN W/CAD IMPRESSION: Stable unilateral screening mammogram. Yearly follow-up mammogram recommended. (A) ASSESSMENT CATEGORY: BIRADS Category 1: Negative. A letter regarding these results will be sent to the patient by the facility within 30 days. Approximately 10% of breast cancers are not detected by mammography. A normal mammogram should not delay biopsy of a clinically suspicious abnormality. [id number] Electronically Signed: Tae Ashford MD at 12:25 EDT Tel [phone], Service support , CC: Analilia Palacios DO; Tian Raya DO [employer] Former: Signed CBC W/DIFF, AUTOMATED Collected: 05/14/2017 Status: F Source: [place] 8:55 AM [facility] REPOSITORY TYPE CODE TESTS RESULT OUT OF RANGE REFERENCE UNITS LAB L100.1000 4.4-11.0 K/mm3 Normal WBC 8.2 LAB L100.1200 4.2-5.4 M/mm3 High RBC 5.78 LAB L100.1300 12.0-15.0 g/dl High HGB 15.4 LAB L100.1400 37-47 % High HCT 50.7 LAB L100.1500 81-99 fL Normal MCV 87.7 LAB L100.1600 27.0-32.0 pg Low MCH 26.6 LAB L100.1700 32-36 g/gl Low MCHC 30.4 LAB L100.1810 11.6-14.6 % High RDW CV 15.0 LAB L100.1820 35.1-43.9 fl High RDW SD 47.7 LAB L100.1900 150-450 K/mm3 Normal PLT 314 LAB L100.2000 6.2-12.0 fl Normal MPV 9.9 LAB L100.2100 47-70 % High NEUT% 75.9 LAB L100.2200 19-41 % Low LY% 16.8 LAB L100.2300 0-10 % Normal MONO% 4.9 LAB L100.2400 0-5 % Normal EO% 1.8 LAB L100.2500 0-1 % Normal BASO% 0.4 LAB L100.2550 0.0-0.9 % Normal IM GRAN % 0.200 Result Comment: IG% - Immature Granulocytes (promyelocytes, myelocytes and metamyelocytes) > 1% indicates that a LEFT SHIFT is Present. LAB L100.2620 2.0-7.7 X10 3/uL Normal Absolute Neut 6.2 LAB L100.2720 0.83-4.51 X10 3/ul Normal Absolute Lymph 1.38 Performed By: #### L100.0100 #### [facility] [address] [facility]. [place], [place], [id number] URINALYSIS, COMPLETE Collected: 05/14/2017 Status: F Source: [place] 8:55 AM [facility] REPOSITORY Order Comment: How was Urine Obtained? CLEAN CATCH TYPE CODE TESTS RESULT OUT OF RANGE REFERENCE UNITS LAB L400.3000 Yellow COLOR Normal Yellow LAB L400.3050 Clear Normal CLARITY Turbid LAB L400.3200 Normal mg/dl Normal GLUCOSE, UR Normal LAB L400.3300 Negative mg/dL Normal BILIRUBIN URINE Negative LAB L400.3400 Negative mg/dl High 5 KETONE UR LAB L400.3465 1.002-1.030 Normal SP.GR. DIPSTX 1.015 LAB L400.3550 5.0 - 8.0 pH UR Normal 6.0 LAB L400.3600 Negative mg/dl High PROT 30 DIPSTX LAB L400.3700 Normal mg/dl Normal UROBILI Normal LAB L400.3750 Negative High NITRITE UR Positive LAB L400.3780 Negative /ul High 25 OCCULT BLOOD-UR LAB L400.3800 Negative /ul High LEUK ESTERASE 500 LAB L400.4050 0-5 /hpf WBC Normal 50-100 SEEN LAB L400.4100 0-5 /hpf Normal RBC-UA 0-5 SEEN LAB L400.4150 5-10 /hpf SQUAM Normal EPI 0-5 SEEN LAB L400.4300 None Seen /hpf 3+ Normal BACTERIA LAB L400.4350 <or=2+ /hpf 0 Normal MUCUS, URINE SEEN Performed By: #### L400.0001 #### [facility] [address] [place], [address] COMPREHENSIVE METABOLIC Collected: 05/14/2017 Status: F Source: [facility] 8:55 AM [facility] REPOSITORY TYPE CODE TESTS RESULT OUT OF RANGE REFERENCE UNITS LAB L501.0100 74-106 mg/dL High GLU 111 Result Comment: Fasting Glucose result from 100 to 125 mg/dL suggests IMPAIRED HOMEOSTASIS per A.D.A. criteria. Please note revised GLUCOSE reference range effective 2017. LAB L501.1000 7-18 mg/dL Normal BUN 11 LAB L501.1100 0.55-1.02 mg/dL Normal CREAT,SERUM 0.87 Result Comment: The validity of the calculated GFR AND GFRAA in patients over 70 years has not been determined. Clinical correlation is essential. LAB L501.1110 >60 mL/min Normal EST GFR 68 Result Comment: Non- GFR Calc LAB L501.1115 >60 mL/min Normal EST GFR - AA 82 Result Comment: GFR Calc LAB L501.1300 10-20 RATIO Normal BUN/CRE 12.6 LAB L501.1500 6.4-8.2 g/dL T Normal PROT 7.8 LAB L501.1800 3.2-5.0 g/dL Normal ALB 4.0 LAB L501.1950 2.2-4.2 g/dL Normal GLOB 3.8 LAB L501.2000 0.9-2.4 RATIO Normal A/G 1.1 LAB L501.2200 8.5-10.1 mg/dL CA Normal 9.1 LAB L501.4100 15-37 U/L Low AST 13 LAB L501.4305 45-117 U/L Normal ALK P 87 LAB L501.4405 13-56 U/L Normal ALT 19 Result Comment: Please note revised ALT reference range effective 2017. LAB L501.4600 0.20-1.00 mg/dL Normal T BILI 0.40 LAB L501.5300 136-145 mmol/L Normal NA 142 LAB L501.5600 3.5-5.1 mmol/L Normal K 3.9 LAB L501.5900 98-107 mmol/L Normal CL 102 LAB L501.6100 21.0-32.0 mmol/L Normal CO2 28.0 LAB L501.6200 5-15 Normal GAP 12 Performed By: #### L500.4050, L500.4100, L501.9520, L503.6030, L503.6550 #### [facility] [address] [place], [address] LIPID PROFILE Collected: 05/14/2017 Status: F Source: [place] 8:55 AM [facility] REPOSITORY TYPE CODE TESTS RESULT OUT OF RANGE REFERENCE UNITS LAB L501.4900 200 mg/dL High CHOL 203 Result Comment: <200 mg/dL Desirable 200-240 mg/dL Borderline >240 mg/dL High Risk LAB L501.5000 mg/dL Normal TRIG 164 Result Comment: The drugs N-Acetylcysteine and Metamizole may falsely depress this assay. Serum Triglycerides Reference Interval Normal <150 mg/dL Borderline high 150 - 199 mg/dL High 200 - 499 mg/dL Very High > or = 500 mg/dL LAB L501.6400 mg/dL Normal HDL 83 Result Comment: The drugs N-Acetylcysteine and Metamizole may falsely depress this assay. Reference Range HDL <40 mg/dL Low HDL Cholesterol HDL >or= 60 mg/dL High HDL Cholesterol LAB L501.6500 0-130 mg/dL Normal LDL 87 LAB L501.6600 5-40 mg/dL Normal VLDL 33 Performed By: #### L500.4050, L500.4100, L501.9520, L503.6030, L503.6550 #### [facility] [address] [place], [place], [id number] THYROID STIM HORMONE Collected: 05/14/2017 Status: F Source: TATIANA (TSH) 8:55 AM [facility] REPOSITORY TYPE CODE TESTS RESULT OUT OF RANGE REFERENCE UNITS LAB L501.9520 0.358-3.74 uIU/mL Normal TSH 2.08 Performed By: #### L500.4050, L500.4100, L501.9520, L503.6030, L503.6550 #### [facility] [address] [place], [place], [id number] IRON+IRON BINDING Collected: 05/14/2017 Status: F Source: TATIANA CAPACITY 8:55 AM [facility] REPOSITORY TYPE CODE TESTS RESULT OUT OF RANGE REFERENCE UNITS LAB L503.6075 250-450 ug/dL TIBC Normal 444 LAB L503.6150 50-170 ug/dL IRON Normal 60 LAB L503.6250 15.0-55.0 % Low IRON SATURATION 13.5 Performed By: #### L500.4050, L500.4100, L501.9520, L503.6030, L503.6550 #### [facility] [address] [place], [place], [id number] FERRITIN Collected: 05/14/2017 Status: F Source: TATIANA 8:55 AM [facility] REPOSITORY TYPE CODE TESTS RESULT OUT OF RANGE REFERENCE UNITS LAB L503.6550 8-252 ng/mL Normal FERRITIN 11 Performed By: #### L500.4050, L500.4100, L501.9520, L503.6030, L503.6550 #### [facility] [address] [place], [place], [id number] MICROALB:CREAT Collected: 05/14/2017 Status: F Source: TATIANA RATIO,RANDOM UR 8:55 AM [facility] REPOSITORY TYPE CODE TESTS RESULT OUT OF RANGE REFERENCE UNITS LAB L501.1200 NO RANGE EST. mg/dL Normal UR CREAT 154.00 LAB L502.0500 NO RANGE EST. mg/L Normal 192.0 MICROALBUMIN ,UR LAB L502.0600 <30 mg/g CRE mg/g CRE High 124.7 MALB:CREAT Performed By: #### L502.0250 #### [facility] [address] [place], [place], [address] VITAMIN B12 Collected: 05/14/2017 Status: F Source: TATIANA 8:55 AM [facility] REPOSITORY TYPE CODE TESTS RESULT OUT OF REFERENCE UNITS RANGE LAB L503.0105 211-911 pg/mL High Vitamin B12 1008 Performed By: #### L503.0105 #### [facility] [address] [place], [address] LIVER PROFILE Collected: 04/30/2017 Status: F Source: TATIANA 11:17 AM [facility] REPOSITORY TYPE CODE TESTS RESULT OUT OF RANGE REFERENCE UNITS LAB L501.1500 6.4-8.2 g/dL Normal T PROT 7.3 LAB L501.1800 3.4-5.0 g/dL Normal ALB 3.4 Result Comment: Please note revised Albumin AND Globulin reference range effective 2017. LAB L501.1950 2.2-4.2 g/dL Normal GLOB 3.9 LAB L501.4100 15-37 U/L Normal AST 19 Result Comment: Slight Hemolysis, Result may be falsely increased. LAB L501.4305 45-117 U/L Normal ALK P 62 LAB L501.4405 12-78 U/L Normal ALT 17 LAB L501.4600 0.20-1.00 mg/dL Normal T BILI 0.40 LAB L501.4700 0.00-0.30 mg/dL Normal D BILI 0.10 Performed By: #### L500.3400, L500.4100 #### [facility] [address] [place], [place], [address] LIPID PROFILE Collected: 04/30/2017 Status: F Source: TATIANA 11:17 AM [facility] REPOSITORY TYPE CODE TESTS RESULT OUT OF RANGE REFERENCE UNITS LAB L501.4900 200 mg/dL Normal CHOL 186 Result Comment: <200 mg/dL Desirable 200-240 mg/dL Borderline >240 mg/dL High Risk LAB L501.5000 mg/dL Normal TRIG 128 Result Comment: The drugs N-Acetylcysteine and Metamizole may falsely depress this assay. Serum Triglycerides Reference Interval Normal <150 mg/dL Borderline high 150 - 199 mg/dL High 200 - 499 mg/dL Very High > or = 500 mg/dL LAB L501.6400 mg/dL Normal HDL 73 Result Comment: The drugs N-Acetylcysteine and Metamizole may falsely depress this assay. Reference Range HDL <40 mg/dL Low HDL Cholesterol HDL >or= 60 mg/dL High HDL Cholesterol LAB L501.6500 0-130 mg/dL Normal LDL 87 LAB L501.6600 5-40 mg/dL Normal VLDL 26 Performed By: #### L500.3400, L500.4100 #### [facility] [address] [place], [address] ALLERGIES ALLERGIES DATE TYPE / CODE NAME / CODE REACTION SEVERITY SOURCE 01/31/2017 Drug morphine/[id number] Rash Unknown [facility] Allergy/416 1545(RXNORM) Hospital 079902(SNOM Repository ED CT) 12/15/2006 DRUG MORPHINE RASH [facility] INGREDI/419 [facility] 043256(SNOM Repository ED CT) ENCOUNTERS ENCOUNTERS ADMIT/DISCHARGE ACCOUNT NUMBER ADMITTING ENCOUNTER LOCATION SOURCE CLASS 04/11/2018 Ambulatory Building:[facility] Practices Repository 03/17/2018 [id number] [facility] ding:NM Repository 03/14/2018/03/15/20 [id number] Ambulatory [address] Repository 11/15/2017 [id number] [facility] ding:LAB.FUT Repository URE 11/12/2017 [id number] [facility] ding:LAB.FUT Repository URE 10/25/2017 [id number] [facility] ding:LABSPEC Repository 09/24/2017 [id number] [facility] Repository 09/14/2017 [id number] [facility] Repository 09/10/2017 [id number] [facility] Repository 07/29/2017 [id number] Ambulatory [facility] ding:CT Repository 07/28/2017/07/30/19 [id number] Ambulatory [address] Repository 07/19/2017 [id number] Ambulatory [facility] ding:OPBI Repository 06/15/2017 [id number] Ambulatory [facility] ding:PSN Repository 06/15/2017 [id number] Ambulatory BMSBuilding: [facility] Repository 05/14/2017 [id number] Ambulatory [facility] ding:MTLAB Repository 04/30/2017 [id number] Ambulatory [facility] ding:MTLAB Repository FUNCTIONAL STATUS FUNCTIONAL STATUS No Functional Status Records FoundEQUIPMENT EQUIPMENT No Equipment Records FoundPAYERS PAYERS ENCOUNTER GUARANTOR PAYER SUBSCRIBER SOURCE 04/11/2018 Hernesto Treviño Primary Hernesto Treviño OHIP Practices LocklearDOB: Insurance:[employer] LocklearDOB: Repository [id number] Secure CorpPolicy [id number] Number: [address] [place], [place] [id number] RdWest [place] [address]Mgd: 419) Date:2171-06-39Qift [address]Ibk: Name:CHINA Chin [phone] (HP) (HP)Tel: [phone] [phone], [place] [phone] () [address]WP: 04/11/2018 Secondary Hernesto Treviño OHIP Practices Insurance:DO NOT LocklearDOB: Repository USEPolicy Number: [id number] 27 Date:2005-04-05 - RdWest [place] [id number] [address]Iji: (215) Name:Aquiles Sanchez [phone] () [facility] [place] [address]NY: 04/11/2018 Tertiary Hernesto Treviño OHIP Practices Insurance:First LocklearDOB: Repository Federal Credit [id number] [employer]Policy [address] Number: Effective Jose Daniel Khan [place] Date: - [address]Flm: [phone] [id number] [phone] (HP) Name:[id number] Nishi Begum [address] [place] [address]RE: 04/11/2018 Tertiary Hernesto Treviño [facility] Insurance:Humana LocklearDOB: Repository Choice [facility] [id number] Number: [address] [id number] Jose Daniel Khan [place] Date: - [address]Xie: [phone] [id number] [phone] (HP) Name:[facility] [address] [place] [address]VW: 03/17/2018 HERNESTO Treviño Primary HERNESTO Treviño [place] [id number] Insurance:SUMMA CARE LOCKLEARDOB: Community CONGRESS RDLOT MEDICAREPolicy [id number], [place] Number: Repository [address]Wqc: 419 [id number] [phone] (HP) Date:6506-48-64EJ [address] [place] [address]CR: 03/17/2018 Secondary NOT GIVENUNK [place] Insurance:SELF PAY [facility] Number: Effective Repository Date:2018-03-14 11/15/2017 HERNESTO Treviño Primary HERNESTO Treviño [place] [id number] Insurance:SUMMA CARE LOCKLEARDOB: Community CONGRESS RDLOT MEDICAREPolicy [id number] [place] Number: Repository [address]Ihk: (419 [id number] [phone] (HP) Date:5305-33-53IT [address] [place] [address]LJ: 11/15/2017 Secondary NOT G[place]UNK [place] Insurance:SELF PAY [facility] Number: Effective Repository Date:2017-10-29 11/12/2017 HERNESTO Treviño Primary HERNESTO Treviño [place] [id number] Insurance:SUMMA CARE LOCKLEARDOB: Community CONGRESS RDLOT MEDICAREPolicy [id number] [place], [place] Number: Repository [address]Stc: 419 [id number] [phone] (HP) Date:4311-66-07JT [address] [place] [address]RQ: 11/12/2017 Secondary NOT GIVENUNK [place] Insurance:SELF PAY [facility] Number: Effective Repository Date:2017-05-27 10/25/2017 HERNESTO Treviño Primary HERNESTO Treviño [place] [id number] Insurance:SUMMA CARE LOCKLEARDOB: Community CONGRESS RDLOT MEDICAREPolicy [id number] [place] Number: Repository [address]Eay: 419 [id number] [phone] (HP) Date:7060-30-24UM [address] [place] [address]PZ: 10/25/2017 Secondary NOT GIVENUNK [place] Insurance:SELF PAY [facility] Number: Effective Repository Date:2017-10-25 09/24/2017 Hernesto Treviño Primary Hernesto Treviño [facility] LocklearDOB: Insurance:SummaCarePo LocklearDOB: System [id number] licy Number: [id number] Repository [address] Effective Date: [place], [place] [address]Yei: (HP) 09/14/2017 Hernesto Treviño Primary Hernesto Treviño [facility] LocklearDOB: Insurance:SummaCarePo LocklearDOB: System [id number] licy Number: [id number] Repository [address] Effective Date: [place], [place] [address]Wvp: (HP) 09/10/2017 Hernesto Treviño Primary Hernesto Treviño [facility] LocklearDOB: Insurance:SummaCarePo LocklearDOB: System [id number] licy Number: [id number] Repository [address] Effective Date: [place] [address]Njj: (HP) 07/29/2017 Hernesto Treviño Primary Hernesto Treviño [place] [id number] Insurance:SUMMA CARE LocklearDOB: Community [address] RdLot MEDICAREPolicy [id number] [place], [place] Number: Repository [phone]: ([phone] [id number] [phone] (HP) Date:7110-64-82AL [address] [place] [address]IA: 07/29/2017 Secondary NOT GIVENUNK [place] Insurance:SELF PAY [facility] Number: Effective Repository Date:2017-07-21 07/19/2017 Hernesto Treviño Primary Hernesto Treviño [place] [id number] Insurance:SUMMA CARE LocklearDOB: Community Congress RdLot MEDICAREPolicy [id number]. [facility], [place] Number: Repository [address]Wry: (419 [id number] [phone] (HP) Date:5450-54-20HK [address], [place] [address]CY: 07/19/2017 Secondary NOT GIVENUNK [place] Insurance:SELF PAY [facility] Number: Effective Repository Date:2017-01-26 06/15/2017 Hernesto K Primary Hernesto Treviño [place] [id number] Insurance:SUMMA CARE LocklearDOB: Community Congress RdLot MEDICAREPolicy [id number]-Fine [facility] [place] Number: Repository [address]Zzg: (419 [id number] [phone] (HP) Date:7959-01-39GZ [address], [place] [address]RU: 06/15/2017 Secondary NOT GIVENUNK [place] Insurance:SELF PAY [facility] Number: Effective Repository Date:2017-06-09 06/15/2017 Hernesto Treviño Primary Hernesto Treviño [place] [id number] Insurance:SUMMA CARE LocklearDOB: Community Congress RdLot MEDICAREPolicy [id number]-Fine Hospital [place] Number: Repository [address]Mkp: (419 [id number] [phone] (HP) Date:2915-95-63NP [address], [place] [address]NX: 06/15/2017 Secondary NOT GIVENUNK [place] Insurance:SELF PAY [facility] Number: Effective Repository Date:2017-06-15 05/14/2017 Hernesto Treviño Primary Hernesto Treviño [place] [id number] Insurance:[facility] CareB: Community Congress RdLot MEDICAREPolicy [id number]. [facility] Health [facility], [place] Number: Repository [address]Zxa: 419 [id number] [phone] (HP) Date:1914-09-35[address]UN[facility]OSPITALS AND CLINICSMUKULketchikan, [place] [address]JA: 05/14/2017 Secondary NOT GIVENUNK [place] Insurance:SELF PAY [facility] Number: Effective Repository Date:2017-05-14 04/30/2017 Hernesto K Primary Hernesto Treviño [place] [id number] Insurance:[facility] SystemlearDOB: Community Congress RdLot MEDICAREPolicy [id number] [place], [place] Number: Repository [address]Jnr: 419 [id number] [phone] () Date:1877-36-08WX [address] [place] [address]KS: 04/30/2017 Secondary NOT GIVENUNK [place] Insurance:SELF PAY [facility] Number: Effective Repository Date:2017-04-30 SOCIAL HISTORY SOCIAL HISTORY No Social History Records FoundFAMILY HISTORY FAMILY HISTORY No Family History Records FoundADVANCE DIRECTIVES ADVANCE DIRECTIVES No Advanced Directives Records FoundINFORMATION SOURCE INFORMATION SOURCE DATE CREATED AUTHOR AUTHOR'S ORGANIZATION 04/27/2018 [facility]
== END ==
PROVIDERS: Family Provider Internal Medicine; PCP Internal Medicine; Referring Provider Nurse Practitioner; Visit Provider Nurse Practitioner
DX: C50.911 Malignant neoplasm of unspecified site of right female breast (principal); Z17.0 Estrogen receptor positive status [ER+]
CPT/HCPCS: 78306

== ENCOUNTER → 2018-05-09 13:08 | Outpatient (CLI) | payer MEDICARE, SELFPAY ==
--- NOTE | 2018-05-09 13:14 | US_ITS ---
STUDY: ULTRASOUND BREAST - RIGHT REASON FOR EXAM: Female, 72 years old. Pain in the right breast at the mastectomy site. TECHNIQUE: Axial and longitudinal images of the RIGHT breast were performed with a high resolution ultrasound transducer. COMPARISON: Comparison is made with prior ultrasound of the right breast dated July 11, 2015. FINDINGS: RIGHT Breast: There is a 6 mm x 5 mm x 4 mm well-defined hypoechoic nodule at the 5:00 position of the breast at the 1 cm from the nipple. This is adjacent to the thoracic wall. This is unchanged as compared to prior study. IMPRESSION: Stable 6 mm x 5 mm x 4 mm hypoechoic solid nodule deep to the mastectomy scar. ASSESSMENT CATEGORY: BIRADS Category 2: Benign. A letter regarding these results will be sent to the patient by the facility within 30 days. Electronically Signed: Tae Ashford MD at 8:52 EST , Service support , STUDY: ULTRASOUND BREAST - LEFT REASON FOR EXAM: Female, 72 years old. Pain in the left breast. TECHNIQUE: Axial and longitudinal images of the LEFT breast were performed with a high resolution ultrasound transducer. COMPARISON: Comparison is made with prior mammogram done earlier today. Comparison is also made to prior ultrasound of the left breast dated June 22, 2013. FINDINGS: LEFT Breast: There is a 7 mm x 5 mm x 5 mm well-defined hypoechoic lesion at the 4:00 position breast at 1 cm from the nipple. Adjacent to this, there is a 9 mm x 10 mm x 4 mm well defined hypoechoic nodule. There is been essentially no change. US/Breast Limited Unilateral IMPRESSION: Stable subcentimeter hypoechoic nodules as described. ASSESSMENT CATEGORY: BIRADS Category 2: Benign. A letter regarding these results will be sent to the patient by the facility within 30 days. Electronically Signed: Tae Ashford MD at 9:06 EST , Service support ,
--- NOTE | 2018-05-09 13:14 | BI_ITS ---
MAMMOGRAPHY - UNILATERAL DIAGNOSTIC: LEFT BREAST REASON FOR EXAM: Female, 72 years old. Prior right mastectomy with chemotherapy. PERTINENT HISTORY: Personal history of breast cancer. Left breast biopsy. Pain at the right mastectomy site. TECHNIQUE: Digital unilateral breast latanya (3D mammographic acquisition) in the CC and MLO projections. 2-D mediolateral oblique (MLO) and craniocaudad (CC) views of both breasts were obtained. CAD: Full Field Digital Mammography with Computer Added Detection was performed. COMPARISON: Comparison is made with prior study dated July 19, 2017 and June 17, 2016. FINDINGS: Breast Composition: The breasts are heterogeneously dense, which may obscure small masses. There are no dominant masses or suspicious calcifications. A tissue clip marker is seen in the superior retroareolar region of the breast. No other significant abnormalities are identified. There has been no significant change since the prior study. BI/DIAG MAMM W/CAD, UNILAT IMPRESSION: Stable unilateral diagnostic mammogram. One year follow-up mammogram recommended. (A) ASSESSMENT CATEGORY: BIRADS Category 2: Benign. A letter regarding these results will be sent to the patient by the facility within 30 days. Approximately 10% of breast cancers are not detected by mammography. A normal mammogram should not delay biopsy of a clinically suspicious abnormality. Electronically Signed: Tae Ashford MD at 14:24 EST , Service support ,
== END ==
PROVIDERS: Family Provider Internal Medicine; PCP Internal Medicine; Referring Provider Nurse Practitioner; Visit Provider Nurse Practitioner
DX: N64.4 Mastodynia (principal); C50.411 Malignant neoplasm of upper-outer quadrant of right female breast; Z17.0 Estrogen receptor positive status [ER+]
CPT/HCPCS: 76642; 77061; 77065; G0279

== ENCOUNTER → 2018-06-07 12:39 | Outpatient (CLI) | payer MEDICARE, SELFPAY ==
[2018-06-07 17:43] LABS: Color, Urine Yellow (Yellow); Glucose, Dipstick Normal (Normal); Ketone-Dipstick 5 mg/dl (Negative); Leukocyte Esterase-Dipstick 25 /ul (Negative); Nitrite-Dipstick Negative (Negative); Occult Blood-Urine Negative /ul (Negative); Protein-Dipstick 30 mg/dl (Negative); Urine Bilirubin Dipstick Negative (Negative); Urine Clarity Sl. Cloudy (Clear); Urine Urobilinogen Normal (Normal)
[2018-06-07 17:47] LABS: Absolute Lymphocyte Count 1.33 X10^3/ul (0.83-4.51); Absolute Neutrophil Count 5.3 X10^3/uL (2.0-7.7); Basophil# 0.02 X10^3/uL; Basophil% 0.3 % (0-1); Eosinophils% 1.4 % (0-5); Hematocrit 40.6 % (37-47); Hemoglobin 12.5 g/dl (12.0-15.0); Lymphocyte # 1.33 X10^3/ul (4.0); Lymphocyte % 18.5 % (19-41); Mean Corp Hgb Conc 30.8 g/gl (32-36); Mean Corpuscular Hgb 25.3 pg (27.0-32.0); Mean Platelet Vol. 9.8 fl (6.2-12.0); Monocyte# 0.39 X10^3/uL; Monocyte% 5.4 % (0-10); Neutrophil # 5.32 X10^3/uL (2.7-7.7); Neutrophil % 74.1 % (47-70); POSITIVE COUNT NO; POSITIVE DIFFERENTIAL NO; POSITIVE MORPHOLOGY NO; Platelet Count 334 K/mm3 (150-450); RBC Distribution Width CV 16.7 % (11.6-14.6); RBC Distribution Width SD 49.1 fl (35.1-43.9); Red Blood Count 4.95 M/mm3 (4.2-5.4); White Blood Count 7.2 K/mm3 (4.4-11.0)
[2018-06-07 18:06] LABS: Microalbumin:Creatinine Ratio 40.3 mg/g CRE (<30 mg/g CRE)
[2018-06-07 18:22] LABS: ALB/GLOB Ratio 0.9 RATIO (0.9-2.4); AST(SGOT) 15 U/L (15-37); Alanine Aminotransfer ALT/SGPT 13 U/L (13-56); Albumin, Serum 3.2 g/dL (3.2-5.0); Alkaline Phosphatase 61 U/L (45-117); Anion Gap 11 (5-15); BUN 14 mg/dL (7-18); BUN/Creat Ratio 14.5 RATIO (10-20); Calcium,Total 9.3 mg/dL (8.5-10.1); Chloride 103 mmol/L (98-107); Creatinine, Serum 0.96 mg/dL (0.55-1.02); EST Glomerular Filtration Rate 60 mL/min (>60); Est Glom Filt Rate - Afr Amer 73 mL/min (>60); Ferritin 7 ng/mL (8-252); Free T3 2.7 pg/mL (2.18-3.98); Globulin 3.5 g/dL (2.2-4.2); Glucose 123 mg/dL (74-106); Iron 37 ug/dL (50-170); Iron Binding Capacity,Total 345 ug/dL (250-450); PERCENT IRON SATURATION 10.7 % (15.0-55.0); Potassium 4.1 mmol/L (3.5-5.1); Protein, Total 6.7 g/dL (6.4-8.2); Sodium Level 137 mmol/L (136-145); T4 Free Direct 1.08 ng/dL (0.76-1.46); Thyroid Stim Hormone (TSH) 0.86 uIU/mL (0.358-3.74); Vitamin D,25 Hydroxy 78.1 ng/mL (29.95-100.01)
[2018-06-09 16:08] LABS: CHOLESTEROL TOTAL 150 mg/dL (100-199); HDL-C 53 mg/dL (>39); HDL-P TOTAL 38.3 umol/L (>=30.5); SMALL LDL-P 629 nmol/L (<=527); TRIGLYCERIDES 143 mg/dL (0-149)
[2018-06-10 12:56] LABS: INSULIN RESISTANCE SCORE 46 (<=45); LDL SIZE 20.6 nm (>20.5); LDL-C 68 mg/dL (0-99); LDL-P 909 nmol/L (<1000)
== END ==
PROVIDERS: Family Provider Internal Medicine; PCP Internal Medicine; Referring Provider Internal Medicine; Visit Provider Internal Medicine
DX: I10 Essential (primary) hypertension (principal); E78.00 Pure hypercholesterolemia, unspecified; D50.9 Iron deficiency anemia, unspecified; E83.52 Hypercalcemia
CPT/HCPCS: 36415; 80053; 80061; 81002; 82043; 82306; 82570; 82728; 83540; 83550; 83704; 84439; 84443; 84481; 85025

== ENCOUNTER → 2018-07-22 10:21 | Outpatient (CLI) | payer MEDICARE, SELFPAY ==
--- NOTE | 2018-07-22 10:25 | RAD_ITS ---
STUDY: X-RAY - UNILATERAL RIBS ( LEFT ) WITH CHEST REASON FOR EXAM: Female, 72 years old. Bilateral rib pain without trauma. History of breast cancer. TECHNIQUE - RIBS: 3 view(s) of the ribs. TECHNIQUE - CHEST: Single PA view of the chest. COMPARISON: CT of the chest, June 29, 2016. Right RIBS and chest, June 17, 2015. FINDINGS - RIBS: Normal visualized ribs without a demonstrated fracture. FINDINGS - CHEST: The lungs are clear and expanded. No infiltrate or mass. There is no pneumothorax. There is no demonstrated pleural abnormality. Normal size heart. Normal mediastinum and damaris. Normal visualized pulmonary arteries. There is atherosclerotic tortuosity of the aortic arch and descending thoracic aorta. There are diffuse degenerative changes of the visualized thoracic spine. There is degenerative osteoarthritis of the bilateral shoulders. There is no demonstrated abnormality of the visualized soft tissue structures of the upper abdomen. RAD/Ribs Uni Min 3V w/PA Chest IMPRESSION: RIBS: Normal x-ray examination of the ribs. CHEST: No acute cardiopulmonary disease or major interval change. Electronically Signed: Jesus Leach DO at 9:02 EDT Tel [phone], Service support ,
[2018-07-22 12:59] LABS: Erythrocyte Sedimentation Rate 35 mm/hr (0-30)
== END ==
PROVIDERS: Family Provider Internal Medicine; PCP Internal Medicine; Referring Provider Internal Medicine; Visit Provider Internal Medicine
DX: R07.81 Pleurodynia (principal); N39.0 Urinary tract infection, site not specified
CPT/HCPCS: 36415; 71101; 85652; 86140; 87086

== ENCOUNTER → 2018-11-10 11:22 | Outpatient (CLI) | payer MEDICARE, SELFPAY ==
--- NOTE | 2018-11-10 11:24 | US_ITS ---
STUDY: RENAL ULTRASOUND - COMPLETE REASON FOR EXAM: Female, 72 years old. Flank pain TECHNIQUE: Ultrasound evaluation of the kidneys was performed with real-time and static davila-scale imaging. COMPARISON: CT abdomen and pelvis 07/29/2017. FINDINGS: RIGHT KIDNEY: The right kidney measures 10.4 x 3.8 x 3.7 cm with normal cortical thickness 1.2 cm, normal cortical echotexture. Solitary sonographically simple cyst measuring 13 x 13 x 10 mm. No visible calculus. No hydronephrosis. LEFT KIDNEY: Left kidney measures 10.2 x 3.8 x 4.6 cm with normal cortical thickness 1.7 cm, normal cortical echotexture. There is no mass, cyst or hydronephrosis. A solitary nonobstructing calyceal calculus is visible measuring 4 x 4 x 2 mm. BLADDER: Distended volume 278 mL, post void 62 mL, small to moderate postvoid residual. Urinary bladder appears normal in caliber, contour and wall thickness. Greatest wall thickness 3.3 mm. Bilateral ureteral jets are visible consistent with ureteral patency. Minimal echogenic debris layering in the posterior aspect of the urinary bladder. Correlation with urinalysis is recommended. US/Kidney and Bladder IMPRESSION: A solitary nonobstructing calyceal calculus is observed in the left kidney. Greatest dimension 4 mm. Bilaterally there is no hydronephrosis. A right renal lower pole cortical cyst exhibits sonographically benign features. There appears to be minimal debris layering in the posterior aspect of the urinary bladder. Correlation with urinalysis is recommended. Electronically Signed: Ihsan Dykes MD at 14:46 EDT Tel , Service support ,
== END ==
LOC: US 11:23
PROVIDERS: Family Provider Internal Medicine; PCP Internal Medicine; Referring Provider Nurse Practitioner; Visit Provider Nurse Practitioner
DX: N20.0 Calculus of kidney (principal); M54.5 Low back pain
CPT/HCPCS: 76770

== ENCOUNTER → 2018-12-15 11:59 | Outpatient (CLI) | payer MEDICARE, SELFPAY ==
[2018-12-15 14:34] LABS: Absolute Lymphocyte Count 1.28 X10^3/uL (0.83-4.51); Absolute Neutrophil Count 5.1 X10^3/uL (2.0-7.7); Basophil# 0.05 X10^3/uL; Basophil% 0.7 % (0-1); Eosinophil# 0.18 X10^3/uL; Eosinophils% 2.6 % (0-5); Hematocrit 48.4 % (37-47); Lymphocyte # 1.28 X10^3/ul (4.0); Lymphocyte % 18.2 % (19-41); Mean Corpuscular Hgb 28.1 pg (27.0-32.0); Mean Corpuscular Volume 90.8 fL (81-99); Mean Platelet Vol. 9.8 fl (6.2-12.0); Monocyte# 0.36 X10^3/uL; Monocyte% 5.1 % (0-10); NRBC Flagged by Analyzer 0 % (0-5); Neutrophil # 5.11 X10^3/uL (2.7-7.7); Neutrophil % 72.8 % (47-70); Platelet Count 313 K/mm3 (150-450); RBC Distribution Width CV 14.4 % (11.6-14.6); RBC Distribution Width SD 47.7 fl (35.1-43.9); Red Blood Count 5.33 M/mm3 (4.2-5.4)
[2018-12-15 15:09] LABS: Vitamin B12 357 pg/mL (211-911); Vitamin D,25 Hydroxy 49.4 ng/mL (29.95-100.01)
[2018-12-15 15:10] LABS: ALB/GLOB Ratio 0.8 RATIO (0.9-2.4); AST(SGOT) 14 U/L (15-37); Alanine Aminotransfer ALT/SGPT 16 U/L (13-56); Albumin, Serum 3.3 g/dL (3.2-5.0); Alkaline Phosphatase 81 U/L (45-117); Anion Gap 7 (5-15); BUN 10 mg/dL (7-18); BUN/Creat Ratio 11.8 RATIO (10-20); Chloride 105 mmol/L (98-107); Creatinine, Serum 0.85 mg/dL (0.55-1.02); EST Glomerular Filtration Rate 70 mL/min (>60); Est Glom Filt Rate - Afr Amer 84 mL/min (>60); Ferritin 16 ng/mL (8-252); Globulin 4.1 g/dL (2.2-4.2); Glucose 93 mg/dL (74-106); Iron 55 ug/dL (50-170); Iron Binding Capacity,Total 378 ug/dL (250-450); PERCENT IRON SATURATION 14.6 % (15.0-55.0); Potassium 4.2 mmol/L (3.5-5.1); Protein, Total 7.4 g/dL (6.4-8.2); Sodium Level 142 mmol/L (136-145); Thyroid Stim Hormone (TSH) 1.38 uIU/mL (0.358-3.74)
[2018-12-15 15:11] LABS: Microalbumin,Random Urine 19.3 mg/L (NO RANGE EST.); Microalbumin:Creatinine Ratio 16.8 mg/g CRE (<30 mg/g CRE)
[2018-12-17 12:07] LABS: CHOLESTEROL TOTAL 187 mg/dL (100-199); HDL-C 73 mg/dL (>39); HDL-P TOTAL 48.3 umol/L (>=30.5); SMALL LDL-P 355 nmol/L (<=527); TRIGLYCERIDES 131 mg/dL (0-149)
[2018-12-19 13:36] LABS: INSULIN RESISTANCE SCORE 34 (<=45); LDL SIZE 21.5 nm (>20.5); LDL-C 88 mg/dL (0-99); LDL-P 1067 nmol/L (<1000)
== END ==
PROVIDERS: Family Provider Internal Medicine; PCP Internal Medicine; Referring Provider Internal Medicine; Visit Provider Internal Medicine
DX: D50.9 Iron deficiency anemia, unspecified (principal); D51.8 Other vitamin B12 deficiency anemias; E11.42 Type 2 diabetes mellitus with diabetic polyneuropathy; M85.80 Other specified disorders of bone density and structure, unspecified site
CPT/HCPCS: 36415; 80053; 80061; 82043; 82306; 82570; 82607; 82728; 83540; 83550; 83704; 84443; 85025

== ENCOUNTER → 2019-04-12 13:30 | Outpatient (CLI) | payer MEDICARE, SELFPAY ==
[2019-04-12 15:10] LABS: Thyroid Stim Hormone (TSH) 1.27 uIU/mL (0.358-3.74)
[2019-04-12 15:12] LABS: Vitamin B12 353 pg/mL (211-911)
== END ==
PROVIDERS: Family Provider Internal Medicine; PCP Internal Medicine; Referring Provider Internal Medicine; Visit Provider Internal Medicine
DX: I10 Essential (primary) hypertension (principal); E78.00 Pure hypercholesterolemia, unspecified; D51.8 Other vitamin B12 deficiency anemias
CPT/HCPCS: 36415; 82607; 84443

== ENCOUNTER → 2019-06-14 12:25 | Outpatient (CLI) | payer MEDICARE, SELFPAY ==
--- NOTE | 2019-06-14 12:43 | BI_ITS ---
MAMMOGRAPHY - UNILATERAL SCREENING: LEFT BREAST REASON FOR EXAM: Female, 73 years old. Routine annual screening examination (unilateral). PERTINENT HISTORY: Personal history of breast cancer. History of prior right mastectomy with chemotherapy. TECHNIQUE: Digital unilateral breast arnold (3D mammographic acquisition) in the CC and MLO projections. 2-D mediolateral oblique (MLO) and craniocaudad (CC) views of both breasts were obtained. CAD: Full Field Digital Mammography with Computer Added Detection was performed. COMPARISON: Comparison is made with prior examination dated May 09, 2018 and July 19, 2017. FINDINGS: Breast Composition: The breasts are heterogeneously dense, which may obscure small masses. There are no dominant masses or suspicious calcifications. A tissue clip marker is once again seen in the superior retroareolar region of the breast. No other significant abnormalities are identified. There has been no significant change since the prior study. BI/SCREEN MAMM (CAD) W/ARNOLD UNI L IMPRESSION: Stable unilateral screening mammogram. Yearly follow-up mammogram recommended. (A) ASSESSMENT CATEGORY: BIRADS Category 2: Benign. A letter regarding these results will be sent to the patient by the facility within 30 days. Approximately 10% of breast cancers are not detected by mammography. A normal mammogram should not delay biopsy of a clinically suspicious abnormality. [id number] Electronically Signed: Tae Ashford, at 13:24 EDT , Service support ,
== END ==
PROVIDERS: PCP Internal Medicine; Referring Provider Nurse Practitioner; Visit Provider Nurse Practitioner
DX: Z12.31 Encounter for screening mammogram for malignant neoplasm of breast (principal); Z85.3 Personal history of malignant neoplasm of breast
CPT/HCPCS: 77063; 77067

== ENCOUNTER → 2019-09-04 14:22 | Outpatient (CLI) | payer MEDICARE, SELFPAY ==
[2019-09-04 17:54] LABS: Absolute Lymphocyte Count 1.73 X10^3/uL (0.83-4.51); Absolute Neutrophil Count 7.1 X10^3/uL (2.0-7.7); Basophil# 0.05 X10^3/uL; Basophil% 0.5 % (0-1); Eosinophil# 0.17 X10^3/uL; Eosinophils% 1.8 % (0-5); Hematocrit 50.1 % (37-47); Hemoglobin 15.6 g/dL (12.0-15.0); Lymphocyte # 1.73 X10^3/ul (4.0); Lymphocyte % 17.9 % (19-41); Mean Corp Hgb Conc 31.1 g/dL (32-36); Mean Corpuscular Hgb 27.5 pg (27.0-32.0); Mean Corpuscular Volume 88.2 fL (81-99); Mean Platelet Vol. 9.7 fl (6.2-12.0); Monocyte# 0.52 X10^3/uL; Monocyte% 5.4 % (0-10); NRBC Flagged by Analyzer 0 % (0-5); Neutrophil # 7.14 X10^3/uL (2.7-7.7); Neutrophil % 73.7 % (47-70); Platelet Count 387 K/mm3 (150-450); RBC Distribution Width CV 14.4 % (11.6-14.6); RBC Distribution Width SD 45.9 fl (35.1-43.9); Red Blood Count 5.68 M/mm3 (4.2-5.4); White Blood Count 9.7 K/mm3 (4.4-11.0)
[2019-09-04 17:59] LABS: Vitamin B12 442 pg/mL (211-911)
[2019-09-04 18:20] LABS: ALB/GLOB Ratio 0.9 RATIO (0.9-2.4); AST(SGOT) 19 U/L (15-37); Alanine Aminotransfer ALT/SGPT 23 U/L (13-56); Albumin, Serum 3.8 g/dL (3.2-5.0); Alkaline Phosphatase 94 U/L (45-117); Anion Gap 11 (5-15); BUN 15 mg/dL (7-18); BUN/Creat Ratio 10.4 RATIO (10-20); Calcium,Total 10.2 mg/dL (8.5-10.1); Chloride 100 mmol/L (98-107); Cholesterol 253 mg/dL (200); Creatinine, Serum 1.44 mg/dL (0.55-1.02); EST Glomerular Filtration Rate 38 mL/min (>60); Est Glom Filt Rate - Afr Amer 46 mL/min (>60); Globulin 4.4 g/dL (2.2-4.2); Glucose 158 mg/dL (74-106); High Density Lipoprotein 67 mg/dL; Potassium 4.1 mmol/L (3.5-5.1); Protein, Total 8.2 g/dL (6.4-8.2); Sodium Level 138 mmol/L (136-145); Thyroid Stim Hormone (TSH) 1.94 uIU/mL (0.358-3.74); Triglycerides 206 mg/dL; Very Low Density Lipoprotein 41 mg/dL (5-40)
== END ==
PROVIDERS: PCP Internal Medicine; Referring Provider Internal Medicine; Visit Provider Internal Medicine
DX: I10 Essential (primary) hypertension (principal); E78.00 Pure hypercholesterolemia, unspecified; D51.8 Other vitamin B12 deficiency anemias
CPT/HCPCS: 36415; 80053; 80061; 82607; 84443; 85025

== ENCOUNTER → 2019-09-05 | Outpatient (CLI) | payer MEDICARE, SELFPAY ==
[2019-09-05 12:26] LABS: Mucous, Urine 0 SEEN /hpf (<or=2+); Red Blood Cells-Urine 0 SEEN /hpf (0-5); Squamous Epithelial Cells - UA 0 SEEN /hpf (5-10)
[2019-09-05 15:07] LABS: Color, Urine Yellow (Yellow); Glucose, Dipstick 50 mg/dl (Normal); Ketone-Dipstick Negative (Negative); Leukocyte Esterase-Dipstick 500 /ul (Negative); Nitrite-Dipstick Negative (Negative); Occult Blood-Urine Negative /ul (Negative); Protein-Dipstick Negative (Negative); Specific Gravity, Urine 1.015 (1.002-1.030); Urine Bilirubin Dipstick Negative (Negative); Urine Clarity Clear (Clear); Urine Urobilinogen Normal (Normal)
[2019-09-05 15:16] LABS: Bacteria RARE /hpf (None Seen); Calcium Oxalate Crystals Ur RARE /hpf (<or=2+); White Blood Cells 0-5 SEEN /hpf (0-5)
[2019-09-05 15:27] LABS: Microalbumin:Creatinine Ratio 39.5 mg/g CRE (<30 mg/g CRE)
== END | disposition home or self-care (01) ==
LOC: LABSPEC 11:31
PROVIDERS: PCP Internal Medicine; Referring Provider Internal Medicine; Visit Provider Internal Medicine
DX: I10 Essential (primary) hypertension (principal); E78.00 Pure hypercholesterolemia, unspecified; D51.8 Other vitamin B12 deficiency anemias
CPT/HCPCS: 81001; 82043; 82570

== ENCOUNTER → 2019-10-17 09:45 | Outpatient (CLI) | payer MEDICARE, SELFPAY ==
--- NOTE | 2019-10-17 09:53 | BD_ITS ---
STUDY: DUAL ENERGY X-RAY ABSORPTIOMETRY / DXA REASON FOR EXAM: Female, 73 years old. INTERNET SITE DESIGNER -- TYPE 2 DIABETIC- TAKES METFORMIN -- TAKES MULTIVITAMIN AND TUMS -- DOES NO EXERCISE -- FAMILY HX OF OSTEO- GREAT GRANDMOTHER -- HX OF WRIST SURGERY -- RANGEL OF 1 INCH TECHNIQUE: Bone Mineral Density (BMD) measurements of lumbar spine and bilateral hips were obtained. COMPARISON: Comparison is made with prior study dated June 02, 2016. FINDINGS: Lumbar Spine (L1-L4): g/cm2 (1.096) / T-score (-0.7) / Z-score (1.1) Findings are suggestive of normal bone density with a low fracture risk. Increased kyphosis. Left Femur Total: g/cm2 (0.855) / T-score (-1.2) / Z-score (0.6) Left Femoral Neck: g/cm2 (0.810) / T-score (-1.6) / Z-score (0.3) Right Femur Total: g/cm2 (0.839) / T-score (-1.3) / Z-score (0.4) Right Femoral Neck: g/cm2 (0.878) / T-score (-1.2) / Z-score (0.8) The T-Scores on the most recent prior examination were: Lumbar Spine (L1-L4): There has been worsening of bone density since the previous examination. Left Femur Total: which represents a worsening of 6.4%. Right Femur Total: which represents a worsening of 1.6%. BD/Dexa Bone Density Study IMPRESSION: The patient is considered osteopenic as outlined below according to World Daniel Organization (WHO) criteria with a moderate fracture risk. There has been worsening of bone density since the previous examination. Reference Information: The T-score is the number of standard deviations above or below the standard which is normal for young adults at their peak bone mineral density. The World Health Organization (WHO) interprets the T-scores as follows: Above -1 Normal bone density Between -1 and -2.5 Osteopenia Equal to / or below -2.5 Osteoporosis As a practical clinical guideline, osteopenia may be graded as follows: Mild -1 through -1.5 Moderate -1.6 through -2.0 Severe -2.1 through -2.4 The Z-score is the number of standard deviations above or below age-matched controls. A Z-score of less than -1.5 would be considered abnormal. References: 1. NIH Osteoporosis and Related Bone Diseases http://www.osteo.org 2. International Society for Clinical Densitometry http://www.iscd.org 3. National Osteoporosis Foundation http://www.nof.org Electronically Signed: Tae Ashford, at 15:11 EDT , Service support ,
== END ==
PROVIDERS: PCP Internal Medicine; Referring Provider Internal Medicine; Visit Provider Internal Medicine
DX: Z78.0 Asymptomatic menopausal state (principal)
CPT/HCPCS: 77080

== ENCOUNTER → 2020-03-11 10:35 | Outpatient (CLI) | payer MEDICARE, SELFPAY ==
[2020-03-11 10:43] LABS: Mucous, Urine 0 SEEN /hpf (<or=2+); Red Blood Cells-Urine 0 SEEN /hpf (0-5)
[2020-03-11 12:23] LABS: Absolute Lymphocyte Count 0.98 X10^3/uL (0.83-4.51); Basophil# 0.03 X10^3/uL; Basophil% 0.4 % (0-1); Eosinophil# 0.13 X10^3/uL; Eosinophils% 1.7 % (0-5); Hematocrit 48.4 % (37-47); Hemoglobin 14.8 g/dL (12.0-15.0); Lymphocyte # 0.98 X10^3/ul (4.0); Lymphocyte % 13.2 % (19-41); Mean Corp Hgb Conc 30.6 g/dL (32-36); Mean Corpuscular Hgb 26.9 pg (27.0-32.0); Mean Platelet Vol. 10.1 fl (6.2-12.0); Monocyte# 0.25 X10^3/uL; Monocyte% 3.4 % (0-10); NRBC Flagged by Analyzer 0 % (0-5); Neutrophil # 6.01 X10^3/uL (2.7-7.7); Neutrophil % 80.8 % (47-70); Platelet Count 343 K/mm3 (150-450); RBC Distribution Width CV 14.6 % (11.6-14.6); RBC Distribution Width SD 46.7 fl (35.1-43.9); White Blood Count 7.4 K/mm3 (4.4-11.0)
[2020-03-11 12:26] LABS: Color, Urine Yellow (Yellow); Glucose, Dipstick Normal (Normal); Ketone-Dipstick Negative (Negative); Leukocyte Esterase-Dipstick 100 /ul (Negative); Nitrite-Dipstick Positive (Negative); Occult Blood-Urine Negative /ul (Negative); Protein-Dipstick Negative (Negative); Specific Gravity, Urine 1.005 (1.002-1.030); Urine Bilirubin Dipstick Negative (Negative); Urine Clarity Sl. Cloudy (Clear); Urine Urobilinogen Normal (Normal)
[2020-03-11 12:58] LABS: Squamous Epithelial Cells - UA 0-5 SEEN /hpf (5-10); White Blood Cells 0-5 SEEN /hpf (0-5)
[2020-03-11 12:59] LABS: Bacteria RARE /hpf (None Seen); Calcium Oxalate Crystals Ur 2+ /hpf (<or=2+)
[2020-03-11 13:00] LABS: ALB/GLOB Ratio 0.9 RATIO (0.9-2.4); AST(SGOT) 20 U/L (15-37); Alanine Aminotransfer ALT/SGPT 20 U/L (13-56); Albumin, Serum 3.5 g/dL (3.2-5.0); Alkaline Phosphatase 89 U/L (45-117); Anion Gap 8 (5-15); BUN 10 mg/dL (7-18); BUN/Creat Ratio 13.4 RATIO (10-20); Calcium,Total 8.9 mg/dL (8.5-10.1); Chloride 103 mmol/L (98-107); Cholesterol 196 mg/dL (200); Creatinine, Serum 0.74 mg/dL (0.55-1.02); EST Glomerular Filtration Rate 80 mL/min (>60); Est Glom Filt Rate - Afr Amer 97 mL/min (>60); Ferritin 13 ng/mL (8-252); Globulin 3.9 g/dL (2.2-4.2); Glucose 99 mg/dL (74-106); High Density Lipoprotein 63 mg/dL; Iron 49 ug/dL (50-170); Iron Binding Capacity,Total 394 ug/dL (250-450); PERCENT IRON SATURATION 12.4 % (15.0-55.0); Potassium 3.8 mmol/L (3.5-5.1); Protein, Total 7.4 g/dL (6.4-8.2); Sodium Level 137 mmol/L (136-145); Thyroid Stim Hormone (TSH) 1.21 uIU/mL (0.358-3.74); Triglycerides 154 mg/dL; Very Low Density Lipoprotein 31 mg/dL (5-40)
[2020-03-11 13:09] LABS: Microalbumin,Random Urine 25.9 mg/L (NO RANGE EST.); Microalbumin:Creatinine Ratio 62.4 mg/g CRE (<30 mg/g CRE)
[2020-03-11 13:15] LABS: Vitamin B12 372 pg/mL (211-911)
== END ==
PROVIDERS: PCP Internal Medicine; Referring Provider Internal Medicine; Visit Provider Internal Medicine
DX: E53.8 Deficiency of other specified B group vitamins (principal); E61.1 Iron deficiency; E11.42 Type 2 diabetes mellitus with diabetic polyneuropathy
CPT/HCPCS: 36415; 80053; 80061; 81001; 82043; 82570; 82607; 82728; 83540; 83550; 84443; 85025

== ENCOUNTER → 2020-04-12 11:47 | Outpatient (CLI) | payer MEDICARE, SELFPAY ==
[2020-04-12 15:46] LABS: Absolute Lymphocyte Count 1.12 X10^3/uL (0.83-4.51); Absolute Neutrophil Count 6.9 X10^3/uL (2.0-7.7); Basophil# 0.04 X10^3/uL; Basophil% 0.5 % (0-1); Eosinophil# 0.27 X10^3/uL; Eosinophils% 3.1 % (0-5); Hematocrit 52.1 % (37-47); Hemoglobin 15.6 g/dL (12.0-15.0); Lymphocyte # 1.12 X10^3/ul (4.0); Lymphocyte % 12.8 % (19-41); Mean Corp Hgb Conc 29.9 g/dL (32-36); Mean Corpuscular Hgb 25.9 pg (27.0-32.0); Mean Corpuscular Volume 86.4 fL (81-99); Mean Platelet Vol. 10.6 fl (6.2-12.0); Monocyte# 0.42 X10^3/uL; Monocyte% 4.8 % (0-10); NRBC Flagged by Analyzer 0 % (0-5); Neutrophil # 6.86 X10^3/uL (2.7-7.7); Neutrophil % 78.3 % (47-70); Platelet Count 320 K/mm3 (150-450); RBC Distribution Width CV 14.9 % (11.6-14.6); Red Blood Count 6.03 M/mm3 (4.2-5.4); White Blood Count 8.8 K/mm3 (4.4-11.0)
[2020-04-12 15:47] LABS: Vitamin B12 505 pg/mL (211-911)
[2020-04-12 16:07] LABS: ALB/GLOB Ratio 0.9 RATIO (0.9-2.4); AST(SGOT) 21 U/L (15-37); Alanine Aminotransfer ALT/SGPT 23 U/L (13-56); Albumin, Serum 3.9 g/dL (3.2-5.0); Alkaline Phosphatase 103 U/L (45-117); Anion Gap 10 (5-15); BUN 12 mg/dL (7-18); BUN/Creat Ratio 10.3 RATIO (10-20); Calcium,Total 10.8 mg/dL (8.5-10.1); Chloride 100 mmol/L (98-107); Creatinine, Serum 1.16 mg/dL (0.55-1.02); EST Glomerular Filtration Rate 48 mL/min (>60); Est Glom Filt Rate - Afr Amer 58 mL/min (>60); Globulin 4.2 g/dL (2.2-4.2); Glucose 174 mg/dL (74-106); Potassium 3.4 mmol/L (3.5-5.1); Protein, Total 8.1 g/dL (6.4-8.2); Sodium Level 139 mmol/L (136-145)
== END ==
PROVIDERS: PCP Internal Medicine; Referring Provider Nurse Practitioner; Visit Provider Nurse Practitioner
DX: L29.9 Pruritus, unspecified (principal); E53.8 Deficiency of other specified B group vitamins
CPT/HCPCS: 36415; 80053; 82607; 85025

== ENCOUNTER → 2020-05-06 10:10 | Outpatient (CLI) | payer MEDICARE, SELFPAY ==
[2020-05-06 12:11] LABS: Calcium,Total 9.1 mg/dL (8.5-10.1); Potassium 4.8 mmol/L (3.5-5.1)
== END ==
PROVIDERS: PCP Internal Medicine; Referring Provider Internal Medicine; Visit Provider Internal Medicine
DX: E83.52 Hypercalcemia (principal); E87.6 Hypokalemia
CPT/HCPCS: 36415; 82310; 84132

== ENCOUNTER → 2020-06-10 10:42 | Outpatient (CLI) | payer MEDICARE, SELFPAY ==
[2020-06-10 12:32] LABS: Vitamin B12 420 pg/mL (211-911)
[2020-06-10 13:09] LABS: ALB/GLOB Ratio 0.9 RATIO (0.9-2.4); AST(SGOT) 13 U/L (15-37); Alanine Aminotransfer ALT/SGPT 14 U/L (13-56); Albumin, Serum 3.2 g/dL (3.2-5.0); Alkaline Phosphatase 78 U/L (45-117); Anion Gap 5 (5-15); BUN 8 mg/dL (7-18); BUN/Creat Ratio 8.6 RATIO (10-20); Calcium,Total 8.8 mg/dL (8.5-10.1); Chloride 104 mmol/L (98-107); Creatinine, Serum 0.93 mg/dL (0.55-1.02); EST Glomerular Filtration Rate 62 mL/min (>60); Est Glom Filt Rate - Afr Amer 75 mL/min (>60); Globulin 3.7 g/dL (2.2-4.2); Glucose 116 mg/dL (74-106); Potassium 4.1 mmol/L (3.5-5.1); Protein, Total 6.9 g/dL (6.4-8.2); Sodium Level 139 mmol/L (136-145)
== END ==
PROVIDERS: PCP Internal Medicine; Referring Provider Nurse Practitioner; Visit Provider Nurse Practitioner
DX: L29.9 Pruritus, unspecified (principal); E53.8 Deficiency of other specified B group vitamins; R39.9 Unspecified symptoms and signs involving the genitourinary system
CPT/HCPCS: 36415; 80053; 82607; 82746; 87086; 87088; 87186

== ENCOUNTER → 2020-06-11 14:28 | Outpatient (CLI) | payer MEDICARE, SELFPAY ==
[2020-06-11 17:33] LABS: Absolute Lymphocyte Count 1.33 X10^3/uL (0.83-4.51); Absolute Neutrophil Count 4.9 X10^3/uL (2.0-7.7); Basophil# 0.05 X10^3/uL; Basophil% 0.7 % (0-1); Eosinophil# 0.23 X10^3/uL; Eosinophils% 3.3 % (0-5); Hematocrit 46.1 % (37-47); Hemoglobin 14.2 g/dL (12.0-15.0); Lymphocyte # 1.33 X10^3/ul (4.0); Lymphocyte % 19.1 % (19-41); Mean Corp Hgb Conc 30.8 g/dL (32-36); Mean Corpuscular Hgb 26.6 pg (27.0-32.0); Mean Corpuscular Volume 86.3 fL (81-99); Mean Platelet Vol. 9.4 fl (6.2-12.0); Monocyte# 0.43 X10^3/uL; Monocyte% 6.2 % (0-10); NRBC Flagged by Analyzer 0 % (0-5); Neutrophil # 4.89 X10^3/uL (2.7-7.7); Neutrophil % 70.3 % (47-70); Platelet Count 262 K/mm3 (150-450); RBC Distribution Width CV 14.7 % (11.6-14.6); RBC Distribution Width SD 46.5 fl (35.1-43.9); Red Blood Count 5.34 M/mm3 (4.2-5.4)
== END ==
PROVIDERS: PCP Internal Medicine; Referring Provider Nurse Practitioner; Visit Provider Nurse Practitioner
DX: L29.9 Pruritus, unspecified (principal)
CPT/HCPCS: 85025

== ENCOUNTER → 2020-09-04 12:33 | Outpatient (CLI) | payer MEDICARE, SELFPAY ==
[2020-09-04 14:54] LABS: Absolute Lymphocyte Count 1.81 X10^3/uL (0.83-4.51); Absolute Neutrophil Count 5.8 X10^3/uL (2.0-7.7); Basophil# 0.06 X10^3/uL; Basophil% 0.7 % (0-1); Eosinophil# 0.14 X10^3/uL; Eosinophils% 1.7 % (0-5); Hematocrit 47.7 % (37-47); Hemoglobin 15.1 g/dL (12.0-15.0); Lymphocyte # 1.81 X10^3/ul (0.83-4.51); Lymphocyte % 21.7 % (19-41); Mean Corp Hgb Conc 31.7 g/dL (32-36); Mean Corpuscular Hgb 26.5 pg (27.0-32.0); Mean Corpuscular Volume 83.8 fL (81-99); Mean Platelet Vol. 9.7 fl (6.2-12.0); NRBC Flagged by Analyzer 0 % (0-5); Neutrophil # 5.82 X10^3/uL (2.7-7.7); Neutrophil % 69.7 % (47-70); Platelet Count 290 K/mm3 (150-450); RBC Distribution Width CV 14.2 % (11.6-14.6); RBC Distribution Width SD 43.5 fl (35.1-43.9); Red Blood Count 5.69 M/mm3 (4.2-5.4); White Blood Count 8.4 K/mm3 (4.4-11.0)
[2020-09-04 15:55] LABS: ALB/GLOB Ratio 0.9 RATIO (0.9-2.4); AST(SGOT) 18 U/L (15-37); Alanine Aminotransfer ALT/SGPT 21 U/L (13-56); Albumin, Serum 3.7 g/dL (3.2-5.0); Alkaline Phosphatase 83 U/L (45-117); Amylase 28 U/L (25-115); Anion Gap 10 (5-15); BUN 12 mg/dL (7-18); BUN/Creat Ratio 8.8 RATIO (10-20); Calcium,Total 9.9 mg/dL (8.5-10.1); Chloride 99 mmol/L (98-107); Creatinine, Serum 1.36 mg/dL (0.55-1.02); EST Glomerular Filtration Rate 40 mL/min (>60); Est Glom Filt Rate - Afr Amer 49 mL/min (>60); Globulin 3.9 g/dL (2.2-4.2); Glucose 123 mg/dL (74-106); Lipase 55 U/L (73-393); Potassium 2.6 mmol/L (3.5-5.1); Protein, Total 7.6 g/dL (6.4-8.2); Sodium Level 138 mmol/L (136-145)
== END ==
PROVIDERS: PCP Internal Medicine; Referring Provider Internal Medicine; Visit Provider Internal Medicine
DX: E86.0 Dehydration (principal)
CPT/HCPCS: 36415; 80053; 82150; 83690; 85025

== ENCOUNTER 2020-09-04 16:50 | Observation (INO) | payer MEDICARE, SELFPAY ==
[2020-09-04 16:52] VITALS: BP 153/85; PULSE 105; RESP 16; TEMP 36.3; O2SAT 96; BMI 27.9
--- NOTE | 2020-09-04 17:09 | EKG12_ITS ---
Test Reason : NML LABS Blood Pressure : / mmHG Vent. Rate : 091 BPM Atrial Rate : 091 BPM P-R Int : 170 ms QRS Dur : 082 ms QT Int : 382 ms P-R-T Axes : 026 -16 069 degrees QTc Int : 469 ms Normal sinus rhythm with sinus arrhythmia Nonspecific T wave abnormality Abnormal ECG Confirmed by YESY JOHNSTON, LATOSHA ([id number]), editor book ARNALDO ARGUETA ([id number]) on 09/05/2020 12:55:10 PM Referred By: RANJAN Confirmed By:MYNOR HAYWARD MD
--- NOTE | 2020-09-04 17:12 | EDS_ITS ---
HPI History of Present Illness Chief Complaint: Abn Labs Informant: patient Onset/Context/Timing Onset: Days Current Severity: Mild Maximum Severity: Mild Narrative Narrative: Patient presents secondary to abnormal blood work. Patient states that she has not felt well for the past several days with nausea and vomiting for the past 2 days. She believes her hiatal hernia is coming back. She went to her PCP yesterday but they were unable to get blood. She was given a liter of IV fluids. She went back today for blood work and was called tonight with a potassium of 2.6. Her hemoglobin is also concentrated at 15.1 and creatinine is 1.36. Prior creatinine was 0.93. [facility] Medical History Breast CA Diabetes GERD (gastroesophageal reflux disease) Home Medications gabapentin 300 mg PO 4X/DAY 07/10/13 [History Last Taken 10/07/16] omeprazole 40 mg PO BREAKFAST 07/10/13 [History Last Taken 10/07/16] duloxetine 60 mg PO DAILY 10/03/14 [History Last Taken 10/07/16] omega-3 fatty acids-fish oil [Fish Oil] 1 ea PO DAILY 10/03/14 [History Last Taken 10/07/16] calcium-vitamin D3-vitamin K [Citracal-D3 Soft Chew] 1 tab PO DAILY 08/25/16 [History Last Taken 10/07/16] cranberry 2 capsule PO DAILY 08/25/16 [History Last Taken 10/07/16] metformin 500 mg PO BID 08/25/16 [History Last Taken 10/07/16] [id number] [Alive [employer] Energy] 1 ea PO DAILY 08/25/16 [History Last Taken 10/07/16] cephalexin 500 mg PO Q8 #21 capsule 02/02/17 [Rx Last Taken Unknown] oxycodone 5 mg PO Q8H PRN PRN #10 tab 02/02/17 [Rx Last Taken Unknown] Allergy/AdvReac Type Severity Reaction Status Date / Time morphine Allergy Rash Verified 09/04/20 16:54 Surgical History H/O mastectomy History of appendectomy History of cholecystectomy Social History Smoking Status: Never smoker ROS ROS ED Constitutional Constitutional ED: Denies chills or fever(s) Eyes Eyes: Denies change in vision ENT ENT ED: Denies sore throat Cardiovascular Cardiovascular: Denies chest pain Respiratory/Chest Respiratory/Chest: Denies cough or dyspnea Gastrointestinal Gastrointestinal: Reports abdominal pain, nausea and vomiting; Denies diarrhea Genitourinary Genitourinary ED: Denies dysuria Musculoskeletal Musculoskeletal: Denies back pain Integumentary Denies rash Neurologic Neurologic: Reports weakness; Denies headache(s) Psychiatric Psychiatric: Denies anxiety or depression Endocrine Endocrinology: Denies polydipsia or polyuria Allergic/Immunologic Allergic/Immunologic ED: Denies urticaria EXAM Physical Exam Const Vital Signs: 09/04/20 16:52 09/04/20 18:21 Temperature 97.3 F L Temperature Source Temporal Pulse Rate 105 H 91 Respiratory Rate 16 17 Blood Pressure 153/85 H 132/86 H Blood Pressure Mean 107 101 Pulse Ox 96 96 Oxygen Delivery Method Room Air Room Air Positive well nourished and well developed General Appearance ED: well developed HEENT Reports normocephalic and head/scalp atraumatic Eyes PERRL and EOMs intact bilaterally Neck supple Chest Wall inspection of chest normal and palpation of chest normal Resp normal respiratory effort and clear to auscultation bilaterally Cardio regular rate and regular rhythm GI normal to inspection, nondistended, normoactive bowel sounds Palpation: soft Extremity normal to inspection Neuro oriented x3 and no sensory deficits noted Sensorium / Orientation: alert Motor Exam: strength 5/5 throughout Psych mental status grossly normal Skin no rashes or lesions noted MDM MDM MDM Narrative Medical decision making narrative: Patient was a difficult IV stick. IV was able to be established with ultrasound guidance. IV potassium and fluids are ordered along with a dose of Zofran. Labs from earlier today are reviewed and not repeated at this time. EKG Initial EKG: Attestation: I personally reviewed and interpreted this EKG as follows: Interpretation: Sinus Rhythm (Sinus at 91. Diffuse T wave flattening.) Treatment and Re-Evaluation Comments:: Patient be discussed with hospitalist for hydration and potassium replacement. Discharge Plan Triage Chief Complaint: Abn Labs ED Provider: Ketty Duarte Dx/Rx/DC Orders Clinical Impression: Acute hypokalemia, Acute dehydration Prescriptions: No Action omeprazole 10 MG capsule 40 mg PO BREAKFAST RF: 0 gabapentin 100 MG capsule 300 mg PO 4X/DAY RF: 0 duloxetine 20 MG capsule 60 mg PO DAILY RF: 0 omega-3 fatty acids-fish oil [Fish Oil] 1 EACH capsule 1 ea PO DAILY RF: 0 metformin 500 MG tablet 500 mg PO BID RF: 0 cranberry 400 MG capsule 2 capsule PO DAILY RF: 0 calcium-vitamin D3-vitamin K [Citracal-D3 Soft Chew] 1 EACH Tab.Chew 1 tab PO DAILY RF: 0 [id number] [[employer]] 1 EACH tablet 1 ea PO DAILY RF: 0 oxycodone 5 MG tablet 5 mg PO Q8H PRN PRN (Reason: Severe Pain (6-01/12)) Qty: 10 RF: 0 cephalexin 500 MG capsule 500 mg PO Q8 Qty: 21 RF: 0 Primary Care Provider: Analilia Miramontes Referrals: Analilia Miramontes DO [Primary Care Provider] - Disposition Disposition: Acute Care Hospital [facility]
[2020-09-04] MEDS: 0.9% Normal Saline 1,000 ML 1000 ML IV (18:16)
[2020-09-04] MEDS: Potassium Chloride 10mEq/100mL 10 MEQ/100 ML IV.SOLN. 100 MEQ IV BOLUS ×4 (18:16→23:16)
[2020-09-04 18:21] VITALS: BP 132/86; PULSE 91; RESP 17; O2SAT 96
--- NOTE | 2020-09-04 18:56 | PCM.HP.STD ---
Documented by User: ERICA nIgram 09/04/20 19:12 HPI - General HPI Narrative HERNESTO TOLEDO, is a 74 F who presents at the direction of her primary care physician following abnormal labs. Patient states that yesterday she began vomiting due to a known hiatal hernia and acid reflux. Patient states that she went to her primary care physician's office yesterday where she received IV fluids but they were unable to do labs. Patient returned to PCP office today and labs are obtained where it was noted that potassium was 2.6 and creatinine was 1.36 up from 0.93 in June. Patient reports feeling unwell with nausea and vomiting but otherwise denies symptoms. [facility] Medical History Breast CA Diabetes GERD (gastroesophageal reflux disease) Home Medications gabapentin 300 mg PO 4X/DAY 07/10/13 [History Last Taken 10/07/16] omeprazole 40 mg PO BREAKFAST 07/10/13 [History Last Taken 10/07/16] duloxetine 60 mg PO DAILY 10/03/14 [History Last Taken 10/07/16] omega-3 fatty acids-fish oil [Fish Oil] 1 ea PO DAILY 10/03/14 [History Last Taken 10/07/16] calcium-vitamin D3-vitamin K [Citracal-D3 Soft Chew] 1 tab PO DAILY 08/25/16 [History Last Taken 10/07/16] cranberry 2 capsule PO DAILY 08/25/16 [History Last Taken 10/07/16] metformin 500 mg PO BID 08/25/16 [History Last Taken 10/07/16] [id number] [[employer]] 1 ea PO DAILY 08/25/16 [History Last Taken 10/07/16] cephalexin 500 mg PO Q8 #21 capsule 02/02/17 [Rx Last Taken Unknown] oxycodone 5 mg PO Q8H PRN PRN #10 tab 02/02/17 [Rx Last Taken Unknown] anastrozole 1 mg DAILY 09/04/20 [History Last Taken Unknown] famotidine 20 mg PO DAILY 09/04/20 [History Last Taken Unknown] methenamine hippurate g 09/04/20 [History Last Taken Unknown] ondansetron HCl [Zofran] 4 mg PO Q8H PRN PRN 09/04/20 [History Last Taken Unknown] Allergy/AdvReac Type Severity Reaction Status Date / Time morphine Allergy Rash Verified 09/04/20 16:54 Surgical History H/O mastectomy History of appendectomy History of cholecystectomy Social History Smoking Status: Never smoker ROS Constitutional Constitutional: Denies anorexia, chills, fatigue or malaise Cardiovascular Cardiovascular: Denies chest pain, edema or palpitations Respiratory/Chest Respiratory/Chest: Denies cough, shortness of breath at rest or shortness of breath with exertion Gastrointestinal Gastrointestinal: Reports dyspepsia, nausea and vomiting; Denies abdominal pain, constipation or diarrhea Genitourinary Genitourinary: Denies dysuria Musculoskeletal Musculoskeletal: Denies back pain, extremity pain, joint pain or joint stiffness Integumentary Integumentary: Denies dry skin Neurologic Neurologic: Denies abnormal gait, abnormal speech, confusion or dizziness Psychiatric Psychiatric: Denies anxiety or depression Endocrine Endocrinology: Denies change in body appearance Hematologic/Lymphatic Hematologic/Lymphatic: Denies easy bleeding or easy bruising Vital Signs Vital Signs Vital Signs: 09/04/20 16:52 09/04/20 18:21 Temperature 97.3 F L Temperature Source Temporal Pulse Rate 105 H 91 Respiratory Rate 16 17 Blood Pressure 153/85 H 132/86 H Blood Pressure Mean 107 101 Pulse Ox 96 96 Oxygen Delivery Method Room Air Room Air Weight Weight: 143 lb Body Mass Index (BMI) 27.9 Physical Exam Const alert, oriented x3 and no apparent distress General Appearance: cooperative HEENT normocephalic and head/scalp atraumatic Eyes PERRL and EOMs intact bilaterally Neck supple and no JVD General: trachea midline Lymph Lymphatic: no lymphadenopathy noted Resp normal respiratory effort, normal air movement and clear to auscultation bilaterally Cardio regular rate, regular rhythm, S1 normal heart sound and S2 normal heart sound GI normal to inspection, nondistended, normoactive bowel sounds, soft to palpation and non-tender Extremity normal capillary refill and no clubbing, cyanosis or edema General Extremity: no tenderness to palpation of joints or extremities Skin General Skin Exam: no breakdown and turgor normal Lesions: no lesions Rashes: no rashes Neuro CN's II-XII intact bilaterally Psych thought process normal, cooperative and affect normal Appearance: appropriate Assessment & Plan Assessment/Plan (1) Acute dehydration: (2) Acute hypokalemia: PLAN: 1. Acute hypokalemia -Admit to [facility] for observation with telemetry due to potassium replacement -Likely related to patient nausea and vomiting over the past 24 hours -Normal saline with 20 mEq KCl at 150 ml/hr -Potassium chloride 10 mEq in 100 ml x4 ordered, initiated in ER -Check BMP at midnight -CBC and BMP in a.m. -Magnesium and phosphorus level ordered -Clear liquid diet ordered at this time -Intake and output 2. Acute dehydration -See #1 3. Intractable nausea and vomiting -IV Protonix 40 mg every 12 hour ordered for increased acid reflux -As needed Zofran ordered for intractable symptoms 4. Diabetes mellitus type 2 -Hold Metformin at this time due to increased creatinine -AC at bedtime blood sugars with sliding scale insulin ordered 5. GERD -IV Protonix ordered at this time due to increased symptoms 6. History of breast cancer -Patient currently in remission no active treatment DVT Prophylaxis-ambulation This patient was seen by ERICA Ingram under the supervision of Dr. Viramontes. Documented by User: Dr. Shellie Viramontes MD 09/04/20 19:19 HPI - General General Date of Admission: 09/04/20 Date of Service: 09/04/20 Chief Complaint: Intractable N/V, abdominal pain, abnormal labs per PCP [facility] Medical History Breast CA Diabetes GERD (gastroesophageal reflux disease) Home Medications gabapentin 300 mg PO 4X/DAY 07/10/13 [History Last Taken 10/07/16] omeprazole 40 mg PO BREAKFAST 07/10/13 [History Last Taken 10/07/16] duloxetine 60 mg PO DAILY 10/03/14 [History Last Taken 10/07/16] omega-3 fatty acids-fish oil [Fish Oil] 1 ea PO DAILY 10/03/14 [History Last Taken 10/07/16] calcium-vitamin D3-vitamin K [Citracal-D3 Soft Chew] 1 tab PO DAILY 08/25/16 [History Last Taken 10/07/16] cranberry 2 capsule PO DAILY 08/25/16 [History Last Taken 10/07/16] metformin 500 mg PO BID 08/25/16 [History Last Taken 10/07/16] [id number] [Alive [employer]] 1 ea PO DAILY 08/25/16 [History Last Taken 10/07/16] cephalexin 500 mg PO Q8 #21 capsule 02/02/17 [Rx Last Taken Unknown] oxycodone 5 mg PO Q8H PRN PRN #10 tab 02/02/17 [Rx Last Taken Unknown] anastrozole 1 mg DAILY 09/04/20 [History Last Taken Unknown] famotidine 20 mg PO DAILY 09/04/20 [History Last Taken Unknown] methenamine hippurate g 09/04/20 [History Last Taken Unknown] ondansetron HCl [Zofran] 4 mg PO Q8H PRN PRN 09/04/20 [History Last Taken Unknown] Allergy/AdvReac Type Severity Reaction Status Date / Time morphine Allergy Rash Verified 09/04/20 16:54 Surgical History H/O mastectomy History of appendectomy History of cholecystectomy Social History Smoking Status: Never smoker
[2020-09-04 18:58] VITALS: BP 132/86; PULSE 91; RESP 16; TEMP 36.3; O2SAT 98
[2020-09-04 19:16] LABS: Magnesium 1.8 mg/dL (1.6-2.6); Phosphorus 2.4 mg/dL (2.5-4.9)
[2020-09-04 19:58] VITALS: BMI 28.8
[2020-09-04 20:00] VITALS: BP 151/85; PULSE 87; RESP 16; TEMP 37.1; O2SAT 99
[2020-09-04 21:01] VITALS: PULSE 102
[2020-09-04] MEDS: Gabapentin 300 MG Capsule PO (22:29)
[2020-09-04] MEDS: MELATONIN 3 MG TABLET PO (23:32)
[2020-09-04 23:36] LABS: Bedside Glucose 148 mg/dL (70-110)
--- NOTE | 2020-09-05 00:10 | NURSING ---
notified by lab that pt is refusing her lab work.
[2020-09-05] MEDS: hydrOXYzine PAM 25 MG Capsule PO (01:59)
[2020-09-05 02:01] VITALS: BP 131/72; PULSE 75; RESP 16; TEMP 36.6; O2SAT 98
[2020-09-05 03:34] VITALS: PULSE 88
[2020-09-05 05:55] LABS: Absolute Lymphocyte Count 1.31 X10^3/uL (0.83-4.51); Absolute Neutrophil Count 3.6 X10^3/uL (2.0-7.7); Basophil# 0.05 X10^3/uL; Basophil% 0.9 % (0-1); Eosinophil# 0.19 X10^3/uL; Eosinophils% 3.4 % (0-5); Hematocrit 36.2 % (37-47); Hemoglobin 11.6 g/dL (12.0-15.0); Lymphocyte # 1.31 X10^3/ul (0.83-4.51); Lymphocyte % 23.6 % (19-41); Mean Corpuscular Hgb 26.7 pg (27.0-32.0); Mean Corpuscular Volume 83.2 fL (81-99); Monocyte# 0.39 X10^3/uL; NRBC Flagged by Analyzer 0 % (0-5); Neutrophil % 64.7 % (47-70); Platelet Count 174 K/mm3 (150-450); RBC Distribution Width CV 14.1 % (11.6-14.6); Red Blood Count 4.35 M/mm3 (4.2-5.4); White Blood Count 5.6 K/mm3 (4.4-11.0)
[2020-09-05 06:24] LABS: Anion Gap 5 (5-15); BUN 12 mg/dL (7-18); BUN/Creat Ratio 11.2 RATIO (10-20); Calcium,Total 7.8 mg/dL (8.5-10.1); Chloride 112 mmol/L (98-107); Creatinine, Serum 1.07 mg/dL (0.55-1.02); EST Glomerular Filtration Rate 53 mL/min (>60); Est Glom Filt Rate - Afr Amer 64 mL/min (>60); Estimated Creatinine Clearance 32.13 ml/min; Glucose 140 mg/dL (74-106); Potassium 3.5 mmol/L (3.5-5.1); Sodium Level 143 mmol/L (136-145)
[2020-09-05] MEDS: Gabapentin 300 MG Capsule PO (06:29)
[2020-09-05 06:50] LABS: Bedside Glucose 135 mg/dL (70-110)
[2020-09-05 07:00] VITALS: PULSE 83
[2020-09-05 07:22] VITALS: O2SAT 96
--- NOTE | 2020-09-05 07:46 | PCM.PN.HOSP ---
Subjective Subjective Patient is a 74-year-old lady admitted with intractable nausea vomiting found to be hypokalemic admitted to monitored bed for further management Objective Data Objective Data Vital Signs: Vital Signs Temp Pulse Resp BP Pulse Ox 97.9 F 88 16 131/72 H 98 09/05/20 02:01 09/05/20 03:34 09/05/20 02:01 09/05/20 02:01 09/05/20 02:01 Oxygen Delivery Method Room Air Weight: 67 kg Body Mass Index (BMI) 28.8 Intake & Output: Intake and Output for Last 24 Hours 09/03/20 09/04/20 09/05/20 23:59 23:59 23:59 Intake Total 1710 / 1710 1302.5 / 1302.5 Output Total 200 / 200 700 / 700 Balance 1510 / 1510 602.5 / 602.5 Lab / Micro Data Result Diagrams: 09/05/20 05:35 09/05/20 05:35 Labs: Laboratory Results - last 24 hr 09/04/20 09/04/20 09/05/20 17:14 22:19 05:35 WBC 5.6 RBC 4.35 Hgb 11.6 L Hct 36.2 L MCV 83.2 MCH 26.7 L MCHC 32.0 RDW Std Deviation 43.0 RDW Coeff of Shazia 14.1 Plt Count 174 MPV 9.0 Immature Gran % (Auto) 0.400 Neut % (Auto) 64.7 Lymph % (Auto) 23.6 [place] % (Auto) 7.0 Eos % (Auto) 3.4 Baso % (Auto) 0.9 Absolute Neuts (auto) 3.6 Absolute Lymphs (auto) 1.31 Nucleated RBC % 0 Sodium Potassium Chloride Carbon Dioxide Anion Gap BUN Creatinine Estim Creat Clear Calc Est GFR (MDRD) Af Amer Est GFR (MDRD) Non-Af BUN/Creatinine Ratio Glucose Calcium Phosphorus 2.4 L Magnesium 1.8 POC Glucose 148 H 09/05/20 09/05/20 05:35 06:31 WBC RBC Hgb Hct MCV MCH MCHC RDW Std Deviation RDW Coeff of Shazia Plt Count MPV Immature Gran % (Auto) Neut % (Auto) Lymph % (Auto) [place] % (Auto) Eos % (Auto) Baso % (Auto) Absolute Neuts (auto) Absolute Lymphs (auto) Nucleated RBC % Sodium 143 Potassium 3.5 Chloride 112 H Carbon Dioxide 26.0 Anion Gap 5 BUN 12 Creatinine 1.07 H Estim Creat Clear Calc 32.13 Est GFR (MDRD) Af Amer 64 Est GFR (MDRD) Non-Af 53 L BUN/Creatinine Ratio 11.2 Glucose 140 H Calcium 7.8 L Phosphorus Magnesium POC Glucose 135 H Physical Exam Narrative GENERAL: cooperative HEENT: Atraumatic; EYES; Anicteric, Normal Conjunctiva NECK; supple, normal thyroid, RESPIRATORY: Diminished to auscultation CARDIOVASCULAR: Regular S1 S2, GI: soft, normoactive bowel sounds, : No Renal angle tenderness; EXTREMITIES: No edema, no clubbing, MUSCULOSKELETAL: no muscle waisting NEURO: Awake; no lateralizing signs. SKIN: No Rash PSYCH; Flat affect Assessment & Plan Assessment/Plan (1) Acute dehydration: (2) Acute hypokalemia: PLAN: Patient is a 74-year-old lady with multiple comorbidities including GERD with severe symptoms who presented with intractable nausea vomiting was found to be hypokalemic admitted to regular nursing for further management 1. Intractable nausea vomiting 2. Hypokalemia 3. Dehydration 4. GERD 5. Diabetes mellitus type 2 6. 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 DVT prophylaxis Visit Charges OBSV E&M: 08997 Initial observation care L2
[2020-09-05 07:56] VITALS: BP 143/86; PULSE 86; RESP 16; TEMP 36.8; O2SAT 97
[2020-09-05] MEDS: Anastrozole 1 MG TABLET PO (09:25)
--- NOTE | 2020-09-05 09:25 | PCM.DC.SUM ---
Providers Date of Admission: 09/04/20 Primary Care Physician: Dr. Analilia Miramontes, DO Reason For Visit: HYPOKALEMIA Diagnosis Discharge Diagnosis (1) Acute dehydration: Status: Acute Code(s): E86.0 - Dehydration (2) Acute hypokalemia: Status: Acute Code(s): E87.6 - Hypokalemia Medications at Discharge Home Medications gabapentin 300 mg PO TID 07/10/13 omeprazole 40 mg PO BREAKFAST 07/10/13 Fish Oil 1 ea PO DAILY 10/03/14 duloxetine 60 mg PO DAILY 10/03/14 Alive [employer] Energy 1 ea PO DAILY 08/25/16 metformin 500 mg PO BID 08/25/16 anastrozole 1 mg PO DAILY 09/04/20 diclofenac sodium 100 mg PO DAILY 09/04/20 famotidine 20 mg PO DAILY 09/04/20 methenamine hippurate 1 g PO DAILY 09/04/20 ondansetron HCl [Zofran] 4 mg PO Q8H PRN PRN 09/04/20 potassium chloride 20 meq PO BID #60 tab 09/05/20 Hospital Course Summary of Care Provided Minutes Spent on Discharge: 35 Hospital Course: Patient is a 74-year-old lady with multiple comorbidities including GERD with severe symptoms who presented with intractable nausea vomiting was found to be hypokalemic admitted to regular nursing for further management 1. Intractable nausea vomiting -Suspected to be secondary to gastritis treated with PPI 2. Hypokalemia -Corrected per protocol 3. Dehydration -Secondary to #1 managed with IV fluids 4. GERD -On PPI did continue 5. Diabetes mellitus type II -patient's oral hypoglycemics held. Placed on Accu-Cheks a.c. and at bedtime and covered with sliding scale insulin 6. History of breast CA invasive ductal carcinoma -status post right mastectomy with adjuvant chemo currently on anastrozole 7. Generalized osteoarthritis ?Pain meds as needed Physical Exam Narrative GENERAL: cooperative HEENT: Atraumatic; EYES; Anicteric, Normal Conjunctiva NECK; supple, normal thyroid, RESPIRATORY: Diminished to auscultation CARDIOVASCULAR: Regular S1 S2, GI: soft, normoactive bowel sounds, : No Renal angle tenderness; SKIN: No Rash PSYCH; Flat affect ABG / Lab / Microbiology Data Result Diagrams: 09/05/20 05:35 09/05/20 05:35 Laboratory: Laboratory Results - last 24 hr 09/04/20 09/04/20 09/05/20 17:14 22:19 05:35 WBC 5.6 RBC 4.35 Hgb 11.6 L Hct 36.2 L MCV 83.2 MCH 26.7 L MCHC 32.0 RDW Std Deviation 43.0 RDW Coeff of Shazia 14.1 Plt Count 174 MPV 9.0 Immature Gran % (Auto) 0.400 Neut % (Auto) 64.7 Lymph % (Auto) 23.6 [place] % (Auto) 7.0 Eos % (Auto) 3.4 Baso % (Auto) 0.9 Absolute Neuts (auto) 3.6 Absolute Lymphs (auto) 1.31 Nucleated RBC % 0 Sodium Potassium Chloride Carbon Dioxide Anion Gap BUN Creatinine Estim Creat Clear Calc Est GFR (MDRD) Af Amer Est GFR (MDRD) Non-Af BUN/Creatinine Ratio Glucose Calcium Phosphorus 2.4 L Magnesium 1.8 POC Glucose 148 H 09/05/20 09/05/20 05:35 06:31 WBC RBC Hgb Hct MCV MCH MCHC RDW Std Deviation RDW Coeff of Shazia Plt Count MPV Immature Gran % (Auto) Neut % (Auto) Lymph % (Auto) [place] % (Auto) Eos % (Auto) Baso % (Auto) Absolute Neuts (auto) Absolute Lymphs (auto) Nucleated RBC % Sodium 143 Potassium 3.5 Chloride 112 H Carbon Dioxide 26.0 Anion Gap 5 BUN 12 Creatinine 1.07 H Estim Creat Clear Calc 32.13 Est GFR (MDRD) Af Amer 64 Est GFR (MDRD) Non-Af 53 L BUN/Creatinine Ratio 11.2 Glucose 140 H Calcium 7.8 L Phosphorus Magnesium POC Glucose 135 H D/C Instructions Discharge Diet: 1800 Calorie Control Diet Discharge Activity: Return to Normal Activity Call your doctor if you observe: Fever of 101 or Higher, Shortness of breath, Fainting spells and Chest pain Meaningful Use Info Meaningful Use Diagnoses (Choose all that apply): None applicable Discharge Plan Admission Admit Date/Time: 09/04/20 18:56 Primary Reason for Your Visit: Intractable nausea vomiting, hypokalemia Attending Provider: Gilbert Gutierrez Primary Care Provider: Analilia Miramontes Discharge Orders/Prescriptions Prescriptions: New potassium chloride 20 mEq tablet,ER particles/crystals 20 meq PO BID Qty: 60 RF: 0 Continued omeprazole 10 MG capsule 40 mg PO BREAKFAST RF: 0 gabapentin 100 MG capsule 300 mg PO TID RF: 0 duloxetine 20 MG capsule 60 mg PO DAILY RF: 0 Fish Oil 1 EACH capsule 1 ea PO DAILY RF: 0 metformin 500 MG tablet 500 mg PO BID RF: 0 [employer] 1 EACH tablet 1 ea PO DAILY RF: 0 anastrozole 1 mg tablet 1 mg PO DAILY RF: 0 ondansetron HCl [Zofran] 4 mg tablet 4 mg PO Q8H PRN PRN (Reason: Nausea) RF: 0 methenamine hippurate 1 gram tablet 1 g PO DAILY RF: 0 famotidine 20 mg tablet 20 mg PO DAILY RF: 0 diclofenac sodium 100 mg tablet extended release 24 hr 100 mg PO DAILY RF: 0 Referrals / Follow Up: Analilia Miramontes DO [Primary Care Provider] - In 1 Week Disposition Disposition (needs filled in before D/C Order can be placed): Home, self care Visit Charges OBSV E&M: 21126 Observation care discharge
[2020-09-05] MEDS: DULoxetine Hcl 60 MG Capsule PO (09:27)
--- NOTE | 2020-09-05 09:31 | PCM.DC ---
Discharge Instructions Diet Discharge Diet: 1800 Calorie Control Diet Activity Discharge Activity: Return to Normal Activity Dressing / Incision Call your doctor if you observe: Fever of 101 or Higher, Shortness of breath, Fainting spells and Chest pain Follow Up Care Test Results: Test results from this visit will be discussed in further detail at your follow-up appointment, if applicable. Discharge Plan Admission Admit Date/Time: 09/04/20 18:56 Primary Reason for Your Visit: Intractable nausea vomiting, hypokalemia Attending Provider: Gilbert Gutierrez Primary Care Provider: Analilia Miramontes Discharge Orders/Prescriptions Prescriptions: New potassium chloride 20 mEq tablet,ER particles/crystals 20 meq PO BID Qty: 60 RF: 0 Continued omeprazole 10 MG capsule 40 mg PO BREAKFAST RF: 0 gabapentin 100 MG capsule 300 mg PO TID RF: 0 duloxetine 20 MG capsule 60 mg PO DAILY RF: 0 Fish Oil 1 EACH capsule 1 ea PO DAILY RF: 0 metformin 500 MG tablet 500 mg PO BID RF: 0 [employer] 1 EACH tablet 1 ea PO DAILY RF: 0 anastrozole 1 mg tablet 1 mg PO DAILY RF: 0 ondansetron HCl [Zofran] 4 mg tablet 4 mg PO Q8H PRN PRN (Reason: Nausea) RF: 0 methenamine hippurate 1 gram tablet 1 g PO DAILY RF: 0 famotidine 20 mg tablet 20 mg PO DAILY RF: 0 diclofenac sodium 100 mg tablet extended release 24 hr 100 mg PO DAILY RF: 0 Referrals / Follow Up: Analilia Miramontes DO [Primary Care Provider] - In 1 Week Disposition Disposition (needs filled in before D/C Order can be placed): Home, self care
== END 2020-09-05 10:58 | disposition home or self-care (01) ==
LOC: ED 18:30 → MS3 09-05 07:07
PROVIDERS: Nurse Practitioner Family; Admitting Provider Family Medicine; Emergency Provider Emergency Medicine; PCP Internal Medicine; Visit Provider Internal Medicine
DX: E86.0 Dehydration (principal); E87.6 Hypokalemia; K21.9 Gastro-esophageal reflux disease without esophagitis; R11.2 Nausea with vomiting, unspecified; M15.9 Polyosteoarthritis, unspecified; F32.9 Major depressive disorder, single episode, unspecified; F41.9 Anxiety disorder, unspecified; K44.9 Diaphragmatic hernia without obstruction or gangrene; E11.40 Type 2 diabetes mellitus with diabetic neuropathy, unspecified; Z79.811 Long term (current) use of aromatase inhibitors; Z85.3 Personal history of malignant neoplasm of breast; Z79.899 Other long term (current) drug therapy; Z79.84 Long term (current) use of oral hypoglycemic drugs
CPT/HCPCS: 36415; 80048; 80053; 82150; 82962; 83690; 83735; 84100; 85025; 93005; 96365; 96366; 96367; 99218; 99285; J7030; A4216; G0378

== ENCOUNTER → 2020-12-11 12:27 | Outpatient (CLI) | payer MEDICARE, SELFPAY ==
--- NOTE | 2020-12-11 12:30 | BI_ITS ---
MAMMOGRAPHY - UNILATERAL SCREENING: LEFT BREAST REASON FOR EXAM: Female, 75 years old. Routine annual screening examination (unilateral). PERTINENT HISTORY: Personal history of breast cancer. Prior right mastectomy. Remote left breast biopsy. TECHNIQUE: Digital unilateral breast arnold (3D mammographic acquisition) in the CC and MLO projections. 2-D mediolateral oblique (MLO) and craniocaudad (CC) views of both breasts were obtained. CAD: Full Field Digital Mammography with Computer Added Detection was performed. COMPARISON: Comparison is made with prior examination of 06/14/2019 and 05/09/2018. FINDINGS: Breast Composition: The breasts are heterogeneously dense, which may obscure small masses. There are no dominant masses or suspicious calcifications. Stable small benign-appearing bilateral axillary lymph nodes. No other significant abnormalities are identified. There has been no significant change since the prior study. BI/SCREEN MAMM (CAD) W/ARNOLD UNI L IMPRESSION: Stable unilateral screening mammogram. Yearly follow-up mammogram recommended. (A) ASSESSMENT CATEGORY: BIRADS Category 2: Benign. A letter regarding these results will be sent to the patient by the facility within 30 days. Approximately 10% of breast cancers are not detected by mammography. A normal mammogram should not delay biopsy of a clinically suspicious abnormality. [id number] Electronically Signed: Tae Ashford MD at 13:52 EDT , Service support ,
== END ==
PROVIDERS: PCP Internal Medicine; Referring Provider Internal Medicine; Visit Provider Internal Medicine
DX: Z12.31 Encounter for screening mammogram for malignant neoplasm of breast (principal); Z90.11 Acquired absence of right breast and nipple; Z85.3 Personal history of malignant neoplasm of breast
CPT/HCPCS: 77063; 77067

== ENCOUNTER 2021-04-07 15:53 | Outpatient (CLI) | payer MEDICARE, SELFPAY ==
[2021-04-07 16:24] VITALS: BP 148/90; PULSE 107; RESP 18; TEMP 36.6; O2SAT 94; BMI 29.2
[2021-04-07] MEDS: 0.9% Saline Lock 10 ML Syringe IV (16:24)
[2021-04-07 16:52] VITALS: BP 133/83; PULSE 87; RESP 16; TEMP 37; O2SAT 100
[2021-04-07 17:46] VITALS: BP 136/98; PULSE 57; RESP 16; TEMP 36.8; O2SAT 95
== END 2021-04-07 23:59 | disposition home or self-care (01) ==
LOC: MS3OUT 15:53 → MS3 15:54
PROVIDERS: PCP Internal Medicine; Referring Provider Nurse Practitioner Adult Health; Visit Provider Nurse Practitioner Adult Health
DX: U07.1 COVID-19 (principal)
CPT/HCPCS: J7050; M0243; A4216; Q0240

== ENCOUNTER 2021-06-02 10:39 | Outpatient (CLI) | payer MEDICARE, SELFPAY ==
[2021-06-02 10:52] LABS: Bacteria 0 SEEN /hpf (None Seen); Mucous, Urine 0 SEEN /hpf (<or=2+); Red Blood Cells-Urine 0 SEEN /hpf (0-5); Squamous Epithelial Cells - UA 0 SEEN /hpf (5-10)
[2021-06-02 12:13] LABS: Absolute Lymphocyte Count 1.03 X10^3/uL (0.83-4.51); Absolute Neutrophil Count 6.4 X10^3/uL (2.0-7.7); Basophil# 0.04 X10^3/uL; Basophil% 0.5 % (0-1); Eosinophil# 0.22 X10^3/uL; Eosinophils% 2.7 % (0-5); Hematocrit 45.9 % (37-47); Lymphocyte # 1.03 X10^3/ul (0.83-4.51); Lymphocyte % 12.8 % (19-41); Mean Corp Hgb Conc 30.5 g/dL (32-36); Mean Corpuscular Hgb 25.8 pg (27.0-32.0); Mean Corpuscular Volume 84.7 fL (81-99); Mean Platelet Vol. 9.8 fl (6.2-12.0); Monocyte# 0.31 X10^3/uL; Monocyte% 3.8 % (0-10); NRBC Flagged by Analyzer 0 % (0-5); Neutrophil # 6.43 X10^3/uL (2.7-7.7); Neutrophil % 79.8 % (47-70); Platelet Count 342 K/mm3 (150-450); RBC Distribution Width CV 15.8 % (11.6-14.6); RBC Distribution Width SD 47.9 fl (35.1-43.9); Red Blood Count 5.42 M/mm3 (4.2-5.4); White Blood Count 8.1 K/mm3 (4.4-11.0)
[2021-06-02 12:17] LABS: Color, Urine Yellow (Yellow); Glucose, Dipstick 50 mg/dl (Normal); Ketone-Dipstick Negative (Negative); Leukocyte Esterase-Dipstick 500 /ul (Negative); Nitrite-Dipstick Negative (Negative); Occult Blood-Urine Negative /ul (Negative); Protein-Dipstick 30 mg/dl (Negative); Specific Gravity, Urine 1.015 (1.002-1.030); Urine Bilirubin Dipstick Negative (Negative); Urine Clarity Sl. Cloudy (Clear); Urine Urobilinogen Normal (Normal); Urine pH 6.5 (5.0 - 8.0)
[2021-06-02 12:24] LABS: White Blood Cells 25-50 SEEN /hpf (0-5)
[2021-06-02 12:27] LABS: Yeast-Urine 1+ /hpf (None Seen)
[2021-06-02 12:53] LABS: ALB/GLOB Ratio 0.8 RATIO (0.9-2.4); AST(SGOT) 20 U/L (15-37); Alanine Aminotransfer ALT/SGPT 25 U/L (13-56); Albumin, Serum 3.3 g/dL (3.2-5.0); Alkaline Phosphatase 81 U/L (45-117); Anion Gap 6 (5-15); BUN 8 mg/dL (7-18); BUN/Creat Ratio 7.8 RATIO (10-20); Calcium,Total 9.8 mg/dL (8.5-10.1); Chloride 104 mmol/L (98-107); Cholesterol 205 mg/dL (200); Creatinine, Serum 1.02 mg/dL (0.55-1.02); EST Glomerular Filtration Rate 56 mL/min (>60); Est Glom Filt Rate - Afr Amer 68 mL/min (>60); Globulin 4.2 g/dL (2.2-4.2); Glucose 142 mg/dL (74-106); High Density Lipoprotein 70 mg/dL; Potassium 3.9 mmol/L (3.5-5.1); Protein, Total 7.5 g/dL (6.4-8.2); Sodium Level 139 mmol/L (136-145); Triglycerides 172 mg/dL; Very Low Density Lipoprotein 34 mg/dL (5-40); Vitamin B12 411 pg/mL (211-911); Vitamin D,25 Hydroxy 38.9 ng/mL
== END 2021-06-02 23:59 | disposition home or self-care (01) ==
LOC: MTLAB 10:40
PROVIDERS: PCP Internal Medicine; Referring Provider Internal Medicine; Visit Provider Internal Medicine
DX: E78.00 Pure hypercholesterolemia, unspecified (principal); E55.9 Vitamin D deficiency, unspecified; E53.8 Deficiency of other specified B group vitamins; I10 Essential (primary) hypertension
CPT/HCPCS: 36415; 80053; 80061; 81001; 82043; 82306; 82607; 85025

== ENCOUNTER 2021-06-06 10:59 | Outpatient (CLI) | payer MEDICARE, SELFPAY ==
[2021-06-06 15:30] LABS: Hemoglobin A1c 7.4 % (3.8-5.6)
[2021-06-06 15:39] LABS: Ferritin 14 ng/mL (8-252); Iron 50 ug/dL (50-170); Iron Binding Capacity,Total 451 ug/dL (250-450)
== END 2021-06-06 23:59 | disposition home or self-care (01) ==
LOC: MTLAB 11:00
PROVIDERS: PCP Internal Medicine; Referring Provider Internal Medicine; Visit Provider Internal Medicine
DX: E11.9 Type 2 diabetes mellitus without complications (principal); E61.1 Iron deficiency
CPT/HCPCS: 36415; 82728; 83036; 83540; 83550

== ENCOUNTER → 2021-09-29 | Outpatient (CLI) | payer MEDICARE, SELFPAY ==
[2021-09-29 15:40] LABS: Ferritin 19 ng/mL (8-252); Iron 56 ug/dL (50-170); Iron Binding Capacity,Total 340 ug/dL (250-450); PERCENT IRON SATURATION 16.5 % (15.0-55.0)
== END | disposition home or self-care (01) ==
LOC: MTLAB 12:45
PROVIDERS: PCP Internal Medicine; Referring Provider Internal Medicine; Visit Provider Internal Medicine
DX: E11.9 Type 2 diabetes mellitus without complications (principal); E61.1 Iron deficiency
CPT/HCPCS: 36415; 82728; 83036; 83540; 83550

== ENCOUNTER 2021-12-15 11:16 | Outpatient (CLI) | payer MEDICARE, SELFPAY ==
[2021-12-15 15:27] LABS: Absolute Lymphocyte Count 1.42 X10^3/uL (0.83-4.51); Absolute Neutrophil Count 8.8 X10^3/uL (2.0-7.7); Basophil# 0.08 X10^3/uL; Basophil% 0.7 % (0-1); Eosinophil# 0.35 X10^3/uL; Eosinophils% 3.1 % (0-5); Hematocrit 48.1 % (37-47); Hemoglobin 14.9 g/dL (12.0-15.0); Lymphocyte # 1.42 X10^3/ul (0.83-4.51); Lymphocyte % 12.7 % (19-41); Mean Corpuscular Hgb 27.4 pg (27.0-32.0); Mean Corpuscular Volume 88.4 fL (81-99); Mean Platelet Vol. 9.6 fl (6.2-12.0); Monocyte# 0.45 X10^3/uL; NRBC Flagged by Analyzer 0 % (0-5); Neutrophil # 8.84 X10^3/uL (2.7-7.7); Neutrophil % 79.1 % (47-70); Platelet Count 299 K/mm3 (150-450); Red Blood Count 5.44 M/mm3 (4.2-5.4); White Blood Count 11.2 K/mm3 (4.4-11.0)
[2021-12-15 15:35] LABS: Vitamin B12 444 pg/mL (211-911); Vitamin D,25 Hydroxy 44.8 ng/mL
[2021-12-15 15:41] LABS: Hemoglobin A1c 8.3 % (3.8-5.6)
[2021-12-15 15:42] LABS: Microalbumin:Creatinine Ratio 81.6 mg/g CRE (<30 mg/g CRE)
[2021-12-15 15:50] LABS: ALB/GLOB Ratio 0.7 RATIO (0.9-2.4); AST(SGOT) 17 U/L (15-37); Alanine Aminotransfer ALT/SGPT 18 U/L (13-56); Albumin, Serum 3.1 g/dL (3.2-5.0); Alkaline Phosphatase 82 U/L (45-117); Anion Gap 11 (5-15); BUN 15 mg/dL (7-18); BUN/Creat Ratio 14.4 RATIO (10-20); Calcium,Total 10.2 mg/dL (8.5-10.1); Chloride 100 mmol/L (98-107); Cholesterol 191 mg/dL (200); Creatinine, Serum 1.04 mg/dL (0.55-1.02); EST Glomerular Filtration Rate 55 mL/min (>60); Est Glom Filt Rate - Afr Amer 66 mL/min (>60); Ferritin 17 ng/mL (8-252); Globulin 4.3 g/dL (2.2-4.2); Glucose 135 mg/dL (74-106); High Density Lipoprotein 70 mg/dL; Iron Binding Capacity,Total 358 ug/dL (250-450); Potassium 3.4 mmol/L (3.5-5.1); Protein, Total 7.4 g/dL (6.4-8.2); Sodium Level 139 mmol/L (136-145); Triglycerides 152 mg/dL; Very Low Density Lipoprotein 30 mg/dL (5-40)
== END 2021-12-15 23:59 | disposition home or self-care (01) ==
LOC: MTLAB 11:17
PROVIDERS: PCP Internal Medicine; Referring Provider Internal Medicine; Visit Provider Internal Medicine
DX: E11.42 Type 2 diabetes mellitus with diabetic polyneuropathy (principal); E61.1 Iron deficiency; E53.8 Deficiency of other specified B group vitamins; E78.00 Pure hypercholesterolemia, unspecified; E55.9 Vitamin D deficiency, unspecified
CPT/HCPCS: 36415; 80053; 80061; 82043; 82306; 82570; 82607; 82728; 82746; 83036; 83550; 85025

== ENCOUNTER → 2022-02-05 | Outpatient (CLI) | payer MEDICARE, SELFPAY ==
--- NOTE | 2022-02-05 12:38 | BI_ITS ---
MAMMOGRAPHY - UNILATERAL SCREENING: LEFT BREAST REASON FOR EXAM: Female, 76 years old. Routine annual screening examination (unilateral). PERTINENT HISTORY: Personal history of breast cancer. Prior right mastectomy. TECHNIQUE: Digital unilateral breast arnold (3D mammographic acquisition) in the CC and MLO projections. 2-D mediolateral oblique (MLO) and craniocaudad (CC) views of both breasts were obtained. CAD: Full Field Digital Mammography with Computer Added Detection was performed. COMPARISON: Comparison is made with prior examination dated 12/11/2020 and 06/14/2019. FINDINGS: Breast Composition: The breasts are heterogeneously dense, which may obscure small masses. There are no dominant masses or suspicious calcifications. There is a 7.4 mm x 5.3 mm well-defined nodule in the retroareolar region of the left breast. Correlation with ultrasound is recommended. A tissue clip marker is seen in the slightly superior retroareolar region of the left breast. No other significant abnormalities are identified. BI/SCREEN MAMM (CAD) W/ARNOLD UNI L IMPRESSION: 7.4 mm x 5.3 mm well-defined nodule in the retroareolar region of the left breast. Correlation with ultrasound is recommended. ASSESSMENT CATEGORY: BIRADS Category 0: Incomplete. Need additional imaging evaluation. A letter regarding these results will be sent to the patient by the facility within 30 days. Approximately 10% of breast cancers are not detected by mammography. A normal mammogram should not delay biopsy of a clinically suspicious abnormality. [id number] Electronically Signed: Tae Ashford MD at 13:17 EDT ,
--- NOTE | 2022-02-05 12:54 | BD_ITS ---
STUDY: DUAL ENERGY X-RAY ABSORPTIOMETRY / DXA REASON FOR EXAM: Female, 76 years old. [id number] TECHNIQUE: Bone Mineral Density (BMD) measurements of lumbar spine and bilateral hips were obtained. COMPARISON: Comparison is made with prior study dated 10/17/2019. FINDINGS: Lumbar Spine (L1-L4): g/cm2 (1.001) / T-score (-0.7) / Z-score (2.0) Findings are suggestive of normal bone density with a low fracture risk. Left Femur Total: g/cm2 (0.813) / T-score (-1.1) / Z-score (0.9) Left Femoral Neck: g/cm2 (0.678) / T-score (-1.5) / Z-score (0.7) Right Femur Total: g/cm2 (0.751) / T-score (-1.6) / Z-score (0.4) Right Femoral Neck: g/cm2 (0.7-0) / T-score (-1.2) / Z-score (1.1) The T-Scores on the most recent prior examination were: Lumbar Spine (L1-L4): There has been improvement of bone density since the previous examination. Left Femur Total: which represents an improvement of 2.4%. Right Femur Total: which represents a worsening of 3.4%. BD/Dexa Bone Density Study IMPRESSION: The patient is considered osteopenic as outlined below according to World Daniel Organization (WHO) criteria with a low fracture risk. There has been improvement of bone density since the previous examination. Reference Information: The T-score is the number of standard deviations above or below the standard which is normal for young adults at their peak bone mineral density. The World Health Organization (WHO) interprets the T-scores as follows: Above -1 Normal bone density Between -1 and -2.5 Osteopenia Equal to / or below -2.5 Osteoporosis As a practical clinical guideline, osteopenia may be graded as follows: Mild -1 through -1.5 Moderate -1.6 through -2.0 Severe -2.1 through -2.4 The Z-score is the number of standard deviations above or below age-matched controls. A Z-score of less than -1.5 would be considered abnormal. References: 1. NIH Osteoporosis and Related Bone Diseases www osteo.org 2. International Society for Clinical Densitometry www iscd.org 3. National Osteoporosis Foundation www nof.org Electronically Signed: Tae Ashford MD at 11:02 EDT ,
== END | disposition home or self-care (01) ==
LOC: OPBD 12:36
PROVIDERS: PCP Internal Medicine; Referring Provider Internal Medicine; Visit Provider Internal Medicine
DX: Z13.820 Encounter for screening for osteoporosis (principal); Z78.0 Asymptomatic menopausal state; Z12.31 Encounter for screening mammogram for malignant neoplasm of breast; N63.20 Unspecified lump in the left breast, unspecified quadrant; Z90.11 Acquired absence of right breast and nipple; Z85.3 Personal history of malignant neoplasm of breast
CPT/HCPCS: 77063; 77067; 77080

== ENCOUNTER → 2022-02-12 | Outpatient (CLI) | payer MEDICARE, SELFPAY ==
--- NOTE | 2022-02-12 10:30 | US_ITS ---
STUDY: ULTRASOUND BREAST - LEFT REASON FOR EXAM: Female, 76 years old. Abnormal screening mammogram. Prior right mastectomy. TECHNIQUE: Axial and longitudinal images of the LEFT breast were performed with a high resolution ultrasound transducer. # OF IMAGES: 21 COMPARISON: Comparison is made with prior mammogram done earlier in the day as well as prior ultrasound of the left breast dated 05/09/2018. FINDINGS: LEFT Breast: A 4 mm x 5 mm x 2 mm well-defined hypoechoic nodule is seen at the 5 o''clock position of the breast at 1 cm from nipple. The borders are slightly lobulated. This has a similar appearance as to prior sonogram. Adjacent to this, there are 2 well-defined hypoechoic solid nodules. The larger measures 1.3 cm x 0.8 cm x 0.6 cm. US/Breast Limited Unilateral IMPRESSION: There are 3 adjacent hypoechoic slightly irregular nodular densities at the 5 o''clock position of the breast at 1 cm from the nipple. These are essentially unchanged although biopsy is recommended. ASSESSMENT CATEGORY: BIRADS Category 4: Suspicious - Biopsy Should Be Considered. A letter regarding these results will be sent to the patient by the facility within 30 days. Electronically Signed: Tae Ashford MD at 9:53 EST ,
[2022-02-12 15:47] LABS: Anion Gap 10 (5-15); BUN 12 mg/dL (7-18); BUN/Creat Ratio 8.3 RATIO (10-20); Calcium,Total 13.1 mg/dL (8.5-10.1); Chloride 95 mmol/L (98-107); Creatinine, Serum 1.44 mg/dL (0.55-1.02); EST Glomerular Filtration Rate 37 mL/min (>60); Est Glom Filt Rate - Afr Amer 45 mL/min (>60); Glucose 266 mg/dL (74-106); Potassium 3.2 mmol/L (3.5-5.1); Sodium Level 137 mmol/L (136-145)
== END | disposition home or self-care (01) ==
PROVIDERS: PCP Internal Medicine; Referring Provider Internal Medicine; Visit Provider Internal Medicine
DX: R92.8 Other abnormal and inconclusive findings on diagnostic imaging of breast (principal); E83.52 Hypercalcemia; Z51.81 Encounter for therapeutic drug level monitoring
CPT/HCPCS: 36415; 76642; 80048

== ENCOUNTER → 2022-02-17 | Outpatient (CLI) | payer MEDICARE, SELFPAY ==
--- NOTE | 2022-02-17 16:15 | BRBX_PTH ---
PATIENT: HERNESTO TOLEDO LOC: [facility] U#:[id number] AGE/SX: 76/F ROOM: RE02/17/[address]: Dr. Lane Saavedra MD : 1945 BED: DIS: 02/17/2022 SPEC #: [id number] RECD: 02/17/22 16:39 STATUS: HUNTER RE #: [id number] OMAR: 02/17/22 16:[address]: Lane Saavedra DEPT: SURGICAL PATHOLOGY RECD BY: Sulema Glasgow ENTERED: 02/18/22 11:40 SP TYPE: BREAST BX OT DR: Dr. Analilia Miramontes DO Tissues: Left breast, NOS Procedures: Surgery Specimen Level IV HEADER OPERATION: Left breast biopsy PRE-OP DIAGNOSIS: Left breast mass TISSUE SUBMITTED: Left breast biopsy MICROSCOPIC DIAGNOSIS Left breast biopsy: Hyalinized fibroadenoma. Negative for atypia or malignancy. /SJ 02/19/22 COMMENT Correlation with clinical, radiologic findings and appropriate follow up are necessary. MICROSCOPIC DESCRIPTION Slides are reviewed. GROSS DESCRIPTION Received in formalin is one container labeled with the patient name and designated left breast. The specimen consists of multiple irregular and elongated fragments of hall yellow fibroadipose tissue meauring in aggregate 0.6 x 0.5 0.1 cm. The specimen is totally submitted in one cassette. /SJ:cc 02/18/2022 TC:1 CPT: 18634
== END | disposition home or self-care (01) ==
LOC: LABSPEC 16:50
PROVIDERS: PCP Internal Medicine; Visit Provider Surgery
DX: N63.20 Unspecified lump in the left breast, unspecified quadrant (principal)
CPT/HCPCS: 88305

== ENCOUNTER → 2022-05-04 | Outpatient (CLI) | payer MEDICARE, SELFPAY ==
[2022-05-04 15:55] LABS: Calcium,Total 10.5 mg/dL (8.5-10.1)
== END | disposition home or self-care (01) ==
PROVIDERS: PCP Internal Medicine; Referring Provider Internal Medicine; Visit Provider Internal Medicine
DX: E87.6 Hypokalemia (principal); E83.52 Hypercalcemia
CPT/HCPCS: 36415; 82310; 84132

== ENCOUNTER → 2022-05-11 | Outpatient (CLI) | payer MEDICARE, SELFPAY ==
[2022-05-11 18:09] LABS: Hepatitis C Antibody Non-Reactive (Nonreactive)
== END | disposition home or self-care (01) ==
LOC: MTLAB 12:53
PROVIDERS: PCP Internal Medicine; Referring Provider Physician Assistant Medical; Visit Provider Physician Assistant Medical
DX: L29.8 Other pruritus (principal); L82.1 Other seborrheic keratosis
CPT/HCPCS: 36415; 86803

== ENCOUNTER → 2022-08-17 | Outpatient (CLI) | payer MEDICARE, SELFPAY ==
[2022-08-17 11:22] LABS: ALB/GLOB Ratio 0.8 RATIO (0.9-2.4); AST(SGOT) 16 U/L (15-37); Alanine Aminotransfer ALT/SGPT 19 U/L (13-56); Albumin, Serum 3.1 g/dL (3.2-5.0); Alkaline Phosphatase 79 U/L (45-117); Anion Gap 7 (5-15); BUN 9 mg/dL (7-18); Calcium,Total 8.9 mg/dL (8.5-10.1); Chloride 101 mmol/L (98-107); Cholesterol 201 mg/dL (200); EST Glomerular Filtration Rate 64 mL/min (>60); Est Glom Filt Rate - Afr Amer 78 mL/min (>60); Glucose 143 mg/dL (74-106); High Density Lipoprotein 67 mg/dL; Potassium 3.7 mmol/L (3.5-5.1); Protein, Total 7.1 g/dL (6.4-8.2); Sodium Level 137 mmol/L (136-145); Thyroid Stim Hormone (TSH) 0.95 uIU/mL (0.358-3.74); Triglycerides 95 mg/dL; Very Low Density Lipoprotein 19 mg/dL (5-40)
[2022-08-17 11:23] LABS: Vitamin B12 353 pg/mL (211-911); Vitamin D,25 Hydroxy 76.2 ng/mL
[2022-08-17 12:36] LABS: Absolute Lymphocyte Count 1.28 X10^3/uL (0.83-4.51); Absolute Neutrophil Count 4.8 X10^3/uL (2.0-7.7); Basophil# 0.04 X10^3/uL; Basophil% 0.6 % (0-1); Eosinophil# 0.17 X10^3/uL; Eosinophils% 2.6 % (0-5); Hematocrit 46.4 % (37-47); Hemoglobin 14.4 g/dL (12.0-15.0); Lymphocyte # 1.28 X10^3/ul (0.83-4.51); Lymphocyte % 19.3 % (19-41); Mean Corpuscular Volume 86.9 fL (81-99); Mean Platelet Vol. 10.6 fl (6.2-12.0); Monocyte# 0.29 X10^3/uL; Monocyte% 4.4 % (0-10); NRBC Flagged by Analyzer 0 % (0-5); Neutrophil # 4.81 X10^3/uL (2.7-7.7); Neutrophil % 72.6 % (47-70); Platelet Count 237 K/mm3 (150-450); RBC Distribution Width CV 14.7 % (11.6-14.6); RBC Distribution Width SD 46.7 fl (35.1-43.9); Red Blood Count 5.34 M/mm3 (4.2-5.4); White Blood Count 6.6 K/mm3 (4.4-11.0)
[2022-08-17 13:48] LABS: Microalbumin,Random Urine 46.6 mg/L (NO RANGE EST.); Microalbumin:Creatinine Ratio 62.6 mg/g CRE (<30 mg/g CRE)
== END | disposition home or self-care (01) ==
PROVIDERS: PCP Internal Medicine; Referring Provider Internal Medicine; Visit Provider Internal Medicine
DX: E11.29 Type 2 diabetes mellitus with other diabetic kidney complication (principal); E78.00 Pure hypercholesterolemia, unspecified; E55.9 Vitamin D deficiency, unspecified; E53.8 Deficiency of other specified B group vitamins
CPT/HCPCS: 36415; 80053; 80061; 82043; 82306; 82570; 82607; 84443; 85025

== ENCOUNTER → 2022-09-21 | Outpatient (CLI) | payer MEDICARE, SELFPAY ==
--- NOTE | 2022-09-21 11:38 | US_ITS ---
INDICATION: HX OF BREAST CA, SOFT TISSUE MASS -- 3 areas of palpable lumps -- -POSTERIOR CHEST LEFT -- -POSTERIOR CHEST RIGHT -- -POSTERIOR NECK LEFT EXAMINATION: Ultrasound chest TECHNIQUE: Grayscale and color Doppler images of the posterior chest and posterior neck were obtained in the clinical area of palpable lumps. COMPARISON: None. FINDINGS: The posterior chest wall and posterior neck were assessed with targeted ultrasound in the clinical area of palpable lumps. Corresponding with the palpable lumps are 3 circumscribed hyperechoic intramuscular lesions with no significant increased vascularity. Lesions as follow: * Left posterior chest: 0.9 x 2.3 x 0.5 cm. * Right posterior chest: 1.2 x 1.5 x 0.5 cm. * Left posterior neck: 1.1 x 1.4 x 0.4 cm. US/Chest IMPRESSION: Well-circumscribed intramuscular lesions in the palpable areas of concern are favored to relate to benign lipomas. However, given clinical history of breast cancer, a follow-up examination is recommended in 3-6 months to assess stability. Ultrasound can also be obtained if new or enlarging palpable lesions on physical exam. Electronically Signed: Abel Rogers DO at 9:59 EDT ,
== END | disposition home or self-care (01) ==
PROVIDERS: PCP Internal Medicine; Referring Provider Internal Medicine; Visit Provider Internal Medicine
DX: M79.89 Other specified soft tissue disorders (principal)
CPT/HCPCS: 76604

== ENCOUNTER → 2022-11-27 | Outpatient (CLI) | payer MEDICARE, SELFPAY ==
[2022-11-27 11:30] LABS: Vitamin B12 367 pg/mL (211-911)
== END | disposition home or self-care (01) ==
LOC: LAB 10:37
PROVIDERS: PCP Internal Medicine; Referring Provider Internal Medicine; Visit Provider Internal Medicine
DX: E53.8 Deficiency of other specified B group vitamins (principal)
CPT/HCPCS: 36415; 82607

== ENCOUNTER → 2022-12-23 | Outpatient (CLI) | payer MEDICARE, SELFPAY ==
[2022-12-23 10:56] LABS: Bacteria 0 SEEN /hpf (None Seen); Mucous, Urine 0 SEEN /hpf (<or=2+); Red Blood Cells-Urine 0 SEEN /hpf (0-5)
[2022-12-23 11:31] LABS: Absolute Lymphocyte Count 1.12 X10^3/uL (0.83-4.51); Absolute Neutrophil Count 5.8 X10^3/uL (2.0-7.7); Basophil# 0.04 X10^3/uL; Basophil% 0.5 % (0-1); Eosinophil# 0.37 X10^3/uL; Eosinophils% 4.8 % (0-5); Hematocrit 45.2 % (37-47); Hemoglobin 14.1 g/dL (12.0-15.0); Lymphocyte # 1.12 X10^3/ul (0.83-4.51); Lymphocyte % 14.5 % (19-41); Mean Corp Hgb Conc 31.2 g/dL (32-36); Mean Corpuscular Hgb 27.2 pg (27.0-32.0); Mean Corpuscular Volume 87.1 fL (81-99); Mean Platelet Vol. 9.2 fl (6.2-12.0); Monocyte# 0.36 X10^3/uL; Monocyte% 4.7 % (0-10); NRBC Flagged by Analyzer 0 % (0-5); Neutrophil # 5.76 X10^3/uL (2.7-7.7); Neutrophil % 74.9 % (47-70); Platelet Count 289 K/mm3 (150-450); RBC Distribution Width CV 14.1 % (11.6-14.6); RBC Distribution Width SD 44.9 fl (35.1-43.9); Red Blood Count 5.19 M/mm3 (4.2-5.4); White Blood Count 7.7 K/mm3 (4.4-11.0)
[2022-12-23 11:43] LABS: Color, Urine Yellow (Yellow); Glucose, Dipstick Normal (Normal); Ketone-Dipstick Negative (Negative); Leukocyte Esterase-Dipstick 25 /ul (Negative); Nitrite-Dipstick Negative (Negative); Occult Blood-Urine Negative /ul (Negative); Protein-Dipstick 30 mg/dl (Negative); Specific Gravity, Urine 1.015 (1.002-1.030); Urine Bilirubin Dipstick Negative (Negative); Urine Clarity Clear (Clear); Urine Urobilinogen Normal (Normal)
[2022-12-23 11:57] LABS: Squamous Epithelial Cells - UA 0-5 SEEN /hpf (5-10); White Blood Cells 0-5 SEEN /hpf (0-5)
[2022-12-23 11:58] LABS: Vitamin B12 627 pg/mL (211-911); Vitamin D,25 Hydroxy 43.3 ng/mL
[2022-12-23 12:13] LABS: Microalbumin,Random Urine 84.6 mg/L (NO RANGE EST.); Microalbumin:Creatinine Ratio 122.1 mg/g CRE (<30 mg/g CRE)
[2022-12-23 12:14] LABS: ALB/GLOB Ratio 0.7 RATIO (0.9-2.4); AST(SGOT) 10 U/L (15-37); Alanine Aminotransfer ALT/SGPT 15 U/L (13-56); Albumin, Serum 2.8 g/dL (3.2-5.0); Alkaline Phosphatase 111 U/L (45-117); Anion Gap 7 (5-15); BUN 9 mg/dL (7-18); BUN/Creat Ratio 9.9 RATIO (10-20); Calcium,Total 8.5 mg/dL (8.5-10.1); Chloride 106 mmol/L (98-107); Cholesterol 235 mg/dL (200); Creatinine, Serum 0.91 mg/dL (0.55-1.02); EST Glomerular Filtration Rate 63 mL/min (>60); Est Glom Filt Rate - Afr Amer 77 mL/min (>60); Glucose 155 mg/dL (74-106); High Density Lipoprotein 60 mg/dL; Potassium 3.6 mmol/L (3.5-5.1); Protein, Total 6.8 g/dL (6.4-8.2); Sodium Level 141 mmol/L (136-145); Thyroid Stim Hormone (TSH) 0.69 uIU/mL (0.358-3.74); Triglycerides 130 mg/dL; Very Low Density Lipoprotein 26 mg/dL (5-40)
== END | disposition home or self-care (01) ==
LOC: LAB 10:53
PROVIDERS: PCP Internal Medicine; Referring Provider Internal Medicine; Visit Provider Internal Medicine
DX: E11.65 Type 2 diabetes mellitus with hyperglycemia (principal); E55.9 Vitamin D deficiency, unspecified; E53.8 Deficiency of other specified B group vitamins; I10 Essential (primary) hypertension; R80.9 Proteinuria, unspecified
CPT/HCPCS: 36415; 80053; 80061; 81001; 82043; 82306; 82570; 82607; 84443; 85025

== ENCOUNTER 2023-01-25 14:05 | Emergency (ER) | payer MEDICARE, SELFPAY ==
[2023-01-25 14:06] VITALS: BP 159/51; PULSE 83; RESP 20; TEMP 35.1; O2SAT 98; BMI 28.3
--- NOTE | 2023-01-25 14:50 | RAD_ITS ---
STUDY: X-RAY CHEST REASON FOR EXAM: Female, 77 years old. Chest pain TECHNIQUE: Single AP portable view of the chest. COMPARISON: Comparison is made with prior examination dated May 14, 2022. FINDINGS: EKG electrodes are seen. Surgical clips are seen in the right axillary region. The lungs are clear and expanded. There is no demonstrated pleural abnormality. Normal size heart. Normal mediastinum and damaris. Normal visualized pulmonary arteries. There is atherosclerotic tortuosity of the aortic arch and descending thoracic aorta. There are degenerative changes of the visualized thoracic spine. Normal visualized ribs, clavicles, and shoulders. There is no demonstrated abnormality of the visualized soft tissue structures of the upper abdomen. RAD/Chest 1 View (Portable) IMPRESSION: No acute abnormality is seen. Electronically Signed: Tae Ashford MD at 15:24 EDT ,
[2023-01-25 14:52] LABS: Absolute Lymphocyte Count 1.28 X10^3/uL (0.83-4.51); Basophil# 0.04 X10^3/uL; Basophil% 0.5 % (0-1); Eosinophil# 0.36 X10^3/uL; Eosinophils% 4.5 % (0-5); Hematocrit 45.8 % (37-47); Lymphocyte # 1.28 X10^3/ul (0.83-4.51); Lymphocyte % 15.9 % (19-41); Mean Corp Hgb Conc 30.6 g/dL (32-36); Mean Corpuscular Hgb 26.9 pg (27.0-32.0); Mean Corpuscular Volume 88.1 fL (81-99); Mean Platelet Vol. 9.7 fl (6.2-12.0); Monocyte# 0.37 X10^3/uL; Monocyte% 4.6 % (0-10); NRBC Flagged by Analyzer 0 % (0-5); Neutrophil # 5.95 X10^3/uL (2.7-7.7); Neutrophil % 73.9 % (47-70); Platelet Count 287 K/mm3 (150-450); RBC Distribution Width CV 15.3 % (11.6-14.6); RBC Distribution Width SD 49.1 fl (35.1-43.9); White Blood Count 8.1 K/mm3 (4.4-11.0)
[2023-01-25 15:10] LABS: Anion Gap 5 (5-15); BUN 13 mg/dL (7-18); Calcium,Total 9.7 mg/dL (8.5-10.1); Chloride 107 mmol/L (98-107); Creatinine, Serum 1.08 mg/dL (0.55-1.02); EST Glomerular Filtration Rate 52 mL/min (>60); Est Glom Filt Rate - Afr Amer 63 mL/min (>60); Estimated Creatinine Clearance 30.34 ml/min; Glucose 133 mg/dL (74-106); Potassium 3.5 mmol/L (3.5-5.1); Sodium Level 140 mmol/L (136-145); Troponin-I HS (w/2H Reflex) 23 pg/mL (3.0-54.0)
--- NOTE | 2023-01-25 15:29 | EDS_ITS ---
HPI History of Present Illness Chief Complaint: Chest Pain Informant: patient Onset/Context/Timing Onset: Today Activity at onset: sudden Timing: Intermittent and Lasts (1 to 2 seconds) Quality: Positive for Sharp Location: Right Chest Worsened By: Nothing Relieved By: Nothing Associated Symptoms: Positive for Nausea, Vomiting and Acid Reflux; Negative for Diaphoresis, Dyspnea, Cough, Fever, Lightheadedness or Palpitations Narrative Narrative: Patient presents with intermittent chest pain that began today. Patient states the pain is over the right upper chest. Patient states it only lasted 1 to 2 seconds. Patient states it came on approximately 5-6 times today. Patient states it comes on rather suddenly. Patient states nothing makes it better and nothing makes it worse. Patient admits to an episode of nausea and vomiting with it. Patient states she chronically has acid reflux and still has that today. Patient denies any shortness of breath or cough. Patient denies any diaphoresis or palpitations. CVD Risk Factors: Positive for Diabetes; Negative for Hypertension, Hypercholesterolemia, Family History 1' </=55 or Smoking PE Risk Factors: Positive for Cancer; Negative for Recent Travel/Surgery, Recent Immobilization, Prior DVT or PE or OCP + Smoking + >/=35 [facility] Medical History Breast CA COVID-19 Diabetes Encounter for screening for COVID-19 GERD (gastroesophageal reflux disease) Home Medications duloxetine 20 mg capsule,delayed release 60 mg PO DAILY 10/03/14 [History Last Taken 09/03/20] omega-3 fatty acids-fish oil 340 mg-1,000 mg capsule (Fish Oil) 1 ea PO DAILY SUPPLEMENT 10/03/14 [History Last Taken 09/03/20] metformin 500 mg tablet 500 mg PO BID DIABETES 08/25/16 [History Last Taken 10/07/16] hppertjj-cgqpbcs-sld-iron 18 mg-FA 400 mcg-vit K 80 mcg-hrb#244 tablet ([employer]) 1 ea PO DAILY SUPPLEMENT 08/25/16 [History Last Taken 09/03/20] methenamine hippurate 1 gram tablet 1 g PO DAILY 09/04/20 [History Last Taken Unknown] colloidal oatmeal 1 % topical cream applic topical PRN 02/17/22 [History Last Taken Unknown] famotidine 20 mg tablet 20 mg PO BID 02/17/22 [History Last Taken Unknown] fexofenadine 180 mg tablet (Deidra Allergy) 180 mg PO DAILY 02/17/22 [History Last Taken Unknown] gabapentin 100 mg capsule 300 mg PO .QID NERVE PAIN 02/17/22 [History Last Taken Unknown] levocetirizine 5 mg tablet (Xyzal) 5 mg PO DAILY 02/17/22 [History Last Taken Unknown] lisinopril 10 mg tablet 10 mg PO DAILY 02/17/22 [History Last Taken Unknown] omeprazole 10 mg capsule,delayed release 20 mg PO BREAKFAST ACID REFLUX 02/17/22 [History Last Taken Unknown] Allergy/AdvReac Type Severity Reaction Status Date / Time morphine Allergy Rash Verified 01/25/23 14:08 Family History Brother Cancer Mother Diabetes Surgical History H/O mastectomy History of appendectomy History of cholecystectomy History of repair of hiatal hernia Social History Smoking Status: Never smoker alcohol intake: never substance use type: does not use ROS ROS ED Constitutional Constitutional ED: Denies chills or fever(s) Eyes Eyes: Denies blurry vision or change in vision ENT ENT ED: Denies rhinorrhea or sore throat Cardiovascular Cardiovascular: Reports chest pain; Denies palpitations Respiratory/Chest Respiratory/Chest: Denies cough or dyspnea Gastrointestinal Gastrointestinal: Reports nausea and vomiting Genitourinary Genitourinary ED: Denies dysuria or hematuria Musculoskeletal Musculoskeletal: Reports back pain; Denies neck pain Integumentary Reports rash; Denies abscess Neurologic Neurologic: Reports headache(s); Denies weakness Allergic/Immunologic Allergic/Immunologic ED: Denies mouth swelling or urticaria EXAM Physical Exam Const Vital Signs: 01/25/23 14:06 01/25/23 14:38 Temperature 95.2 F L Temperature Source Temporal Pulse Rate 83 Respiratory Rate 20 H Blood Pressure 159/51 H Blood Pressure Mean 87 Pulse Ox 98 Oxygen Delivery Method Room Air Room Air Positive well nourished and well developed General Appearance ED: well developed and NAD HEENT Reports moist mucous membranes Neck supple and no JVD Chest Wall palpation of chest normal Resp normal respiratory effort and clear to auscultation bilaterally Cardio regular rate Rhythm: abnormal rhythm ectopic beats GI soft to palpation, non-tender and non-distended Extremity normal to inspection General Extremety ED: Negative for edema or tenderness General Extremity: Negative for edema Neuro oriented x3, CN's II-XII intact bilaterally and no sensory deficits noted Sensorium / Orientation: awake and alert Motor Exam: strength 5/5 throughout Psych mental status grossly normal Heart Score History: Slightly/Non-Suspicious ECG: Nonspecific Repolarization Age: >/= 65 years Risk Factors: 1 or 2 Risk Factors Score: 4 MDM MDM MDM Narrative Medical decision making narrative: Chinmay diagnosis includes cardiac dysrhythmia, cardiac ischemia, musculoskeletal pain, pneumonia, pneumothorax, and anxiety. EKG will be obtained to assess for cardiac dysrhythmia and cardiac ischemia. CBC will be obtained to assess for anemia and leukocytosis. Basic metabolic profile will be obtained to assess for electrolyte abnormality and renal function. High-sensitivity troponin will be obtained to assess for cardiac ischemia. 2-hour repeat high-sensitivity troponin will be obtained to assess for ongoing cardiac ischemia. Chest x-ray will be obtained to assess for pneumonia and pneumothorax. Lab Data Attestation: I reviewed the patient's lab results. Lab results narrative: CBC was reviewed and was within normal limits. Basic metabolic profile was reviewed and was within normal limits. High-sensitivity troponin was reviewed and was normal at 23. 2-hour repeat high-sensitivity troponin was reviewed and was normal at 22. Labs: Laboratory Results - last 24 hr 01/25/23 01/25/23 14:42 16:58 WBC 8.1 RBC 5.20 Hgb 14.0 Hct 45.8 MCV 88.1 MCH 26.9 L MCHC 30.6 L RDW Std Deviation 49.1 H RDW Coeff of Shazia 15.3 H Plt Count 287 MPV 9.7 Immature Gran % (Auto) 0.600 Neut % (Auto) 73.9 H Lymph % (Auto) 15.9 L Blaine % (Auto) 4.6 Eos % (Auto) 4.5 Baso % (Auto) 0.5 Absolute Neuts (auto) 6.0 Absolute Lymphs (auto) 1.28 Nucleated RBC % 0 Sodium 140 Potassium 3.5 Chloride 107 Carbon Dioxide 28.0 Anion Gap 5 BUN 13 Creatinine 1.08 H Estim Creat Clear Calc 30.34 Est GFR (MDRD) Af Amer 63 Est GFR (MDRD) Non-Af 52 L BUN/Creatinine Ratio 12.0 Glucose 133 H Calcium 9.7 Troponin I High Sens 23 22 Radiography Chest X-Ray - ED: 1 View, Read by ED Physician, Read by Radiologist and No Acute Disease Diagnostic Testing: Clinical Impression(s) from Imaging Studies Chest X-Ray 01/25/23 14:50 IMPRESSION: No acute abnormality is seen. Electronically Signed: Tae Ashford MD at 15:24 EDT , Portable 1 view chest x-ray was obtained. On my independent interpretation, lung gonzalez are clear. There is normal cardiac silhouette. Bony thorax is normal. There is no acute process noted. Radiologist also interpreted the x- ray and agrees. EKG Initial EKG: Comments: EKG was obtained. On my independent interpretation, it showed a normal sinus rhythm with frequent ectopics with a rate of 87. MS interval, QRS interval, and QTc intervals were all normal. Randolph was normal. There are nonspecific ST-T wave changes. Prior EKG tracings: available for review Prior: Unchanged (09/04/2020) Differential Diagnosis Chest pain/SOB: pulmonary embolism Reason(s) PE less likely: Positive for Well's <3, not tachycardic and not hypoxic Treatment and Re-Evaluation :: Patient was given aspirin. Patient is feeling better on reevaluation. Patient was advised of her findings. Patient has a HEART score of 4. Patient was advised that this is moderate risk for acute cardiac event. However with her history being low risk for coronary artery disease and 2 normal high-sensitivity troponins, I do not feel the patient needs to be admitted at this time. Patient was instructed to follow-up with her primary care physician in 5 to 7 days. Patient understood and was agreeable with the plan. All questions were answered. Discharge Plan Triage Chief Complaint: Chest Pain ED Provider: Mushtaq Mcgarry Dx/Rx/DC Orders Clinical Impression: Chest pain Instructions: ED Chest Pain, Uncertain Cause Prescriptions: No Action lisinopril 10 mg tablet 10 mg PO DAILY fexofenadine [Deidra Allergy] 180 mg tablet 180 mg PO DAILY colloidal oatmeal 1 % cream topical PRN levocetirizine [Xyzal] 5 mg tablet 5 mg PO DAILY omeprazole 10 mg capsule,delayed release(DR/EC) 20 mg PO BREAKFAST Patient Comments: ACID REFLUX gabapentin 100 mg capsule 300 mg PO .QID Patient Comments: neuropathy duloxetine 20 MG capsule 60 mg PO DAILY Fish Oil 1 EACH capsule 1 ea PO DAILY metformin 500 MG tablet 500 mg PO BID Patient Comments: DIABETES [employer] 1 EACH tablet 1 ea PO DAILY Patient Comments: SUPPLEMENT methenamine hippurate 1 gram tablet 1 g PO DAILY famotidine 20 mg tablet 20 mg PO BID Primary Care Provider: Analilia Miramontes Referrals: Analilia Miramontes DO [Primary Care Provider] - 5-7 Days Disposition Disposition: Home, Self Care
[2023-01-25] MEDS: Aspirin 81 MG TAB.CHEW 324 MG PO (15:48)
[2023-01-25 16:06] VITALS: RESP 18
[2023-01-25 16:48] LABS: Reflex Troponin-HS? (from REC) Y
[2023-01-25 17:06] VITALS: RESP 18
[2023-01-25 17:21] LABS: Troponin-I HS 22 pg/mL (3.0-54.0)
[2023-01-25 18:06] VITALS: BP 161/76
== END 2023-01-25 18:17 | disposition home or self-care (01) ==
PROVIDERS: Emergency Provider Emergency Medicine; PCP Internal Medicine; Visit Provider Emergency Medicine
DX: R07.9 Chest pain, unspecified (principal); Z86.16 Personal history of COVID-19
CPT/HCPCS: 71045; 80048; 84484; 85025; 93005; 99284; A4216

== ENCOUNTER → 2023-02-08 | Outpatient (CLI) | payer MEDICARE, SELFPAY ==
--- NOTE | 2023-02-08 12:41 | BI_ITS ---
MAMMOGRAPHY - UNILATERAL SCREENING: LEFT BREAST REASON FOR EXAM: Female, 77 years old. Routine annual screening examination (unilateral). PERTINENT HISTORY: Personal history of breast cancer. Prior right mastectomy. Prior left breast biopsy. TECHNIQUE: Digital unilateral breast arnold (3D mammographic acquisition) in the CC and MLO projections. 2-D mediolateral oblique (MLO) and craniocaudad (CC) views of both breasts were obtained. CAD: Full Field Digital Mammography with Computer Added Detection was performed. COMPARISON: Comparison is made with prior study February 05, 2022 and December 11, 2020. FINDINGS: Breast Composition: The breasts are heterogeneously dense, which may obscure small masses. There are no dominant masses or suspicious calcifications. A tissue clip marker is seen within a 7 mm well-defined nodule in the retroareolar region of the left breast as compared to prior study. Stable tissue clip marker in the retroareolar region of the left breast. No other significant abnormalities are identified. There has been no significant change since the prior study. BI/SCREEN MAMM (CAD) W/ARNOLD UNI L IMPRESSION: Stable unilateral screening mammogram. Yearly follow-up mammogram recommended. (A) ASSESSMENT CATEGORY: BIRADS Category 2: Benign. A letter regarding these results will be sent to the patient by the facility within 30 days. Approximately 10% of breast cancers are not detected by mammography. A normal mammogram should not delay biopsy of a clinically suspicious abnormality. [id number] Electronically Signed: Tae Ashford MD at 13:45 EST ,
== END | disposition home or self-care (01) ==
LOC: OPBI 12:40
PROVIDERS: PCP Internal Medicine; Referring Provider Physician Assistant; Visit Provider Physician Assistant
DX: Z12.31 Encounter for screening mammogram for malignant neoplasm of breast (principal); Z85.3 Personal history of malignant neoplasm of breast
CPT/HCPCS: 77063; 77067

== ENCOUNTER → 2023-03-04 | Outpatient (CLI) | payer MEDICARE, SELFPAY ==
[2023-03-04 13:11] LABS: Erythrocyte Sedimentation Rate 8 mm/hr (0-30)
--- NOTE | 2023-03-04 13:39 | CT_ITS ---
STUDY: CT BRAIN WITHOUT CONTRAST REASON FOR EXAM: Female, 77 years old. Acute Intractable Headache RADIATION DOSAGE (If Supplied By Facility): CTDIvol = ( 44.99 ) mGy, DLP = ( 796.11 ) mGycm TECHNIQUE: Transaxial CT imaging of the brain was performed without administration of intravenous contrast material. Individualized dose optimization techniques were used for this CT. COMPARISON: No relevant priors. FINDINGS: Normal soft tissue structures. Normal calvarium. There is mild cerebral atrophy with widening of the extra-axial spaces and ventricular dilatation. Normal white matter tracts of the cerebral hemispheres. There are small punctate calcifications of the basal ganglia which are seen in the aging brain as a normal variant. Normal brainstem. Normal cerebellum. There is no intracranial hemorrhage. There are no findings of an acute ischemic infarction. Normal visualized paranasal sinuses. CT/Brain/Head without Contrast IMPRESSION: Chronic involutional changes of the brain. Electronically Signed: Tae Ashford MD at 14:15 EST ,
== END | disposition home or self-care (01) ==
LOC: CT 13:00
PROVIDERS: PCP Internal Medicine; Referring Provider Internal Medicine; Visit Provider Internal Medicine
DX: R51.9 Headache, unspecified (principal)
CPT/HCPCS: 70450; 85652

== ENCOUNTER → 2023-04-02 | Outpatient (CLI) | payer MEDICARE, SELFPAY ==
[2023-04-02 10:54] LABS: Erythrocyte Sedimentation Rate 17 mm/hr (0-30)
[2023-04-02 10:56] LABS: Hematocrit 46.2 % (37-47); Hemoglobin 14.4 g/dL (12.0-15.0); Mean Corp Hgb Conc 31.2 g/dL (32-36); Mean Corpuscular Hgb 27.1 pg (27.0-32.0); Mean Platelet Vol. 10.2 fl (6.2-12.0); Platelet Count 308 K/mm3 (150-450); RBC Distribution Width CV 14.6 % (11.6-14.6); RBC Distribution Width SD 46.2 fl (35.1-43.9); Red Blood Count 5.31 M/mm3 (4.2-5.4); White Blood Count 13.1 K/mm3 (4.4-11.0)
[2023-04-02 10:57] LABS: ALB/GLOB Ratio 0.8 RATIO (0.9-2.4); AST(SGOT) 15 U/L (15-37); Alanine Aminotransfer ALT/SGPT 14 U/L (13-56); Alkaline Phosphatase 76 U/L (45-117); Amylase 26 U/L (25-115); Anion Gap 8 (5-15); BUN 12 mg/dL (7-18); BUN/Creat Ratio 8.6 RATIO (10-20); Calcium,Total 11.4 mg/dL (8.5-10.1); Chloride 104 mmol/L (98-107); Creatinine, Serum 1.39 mg/dL (0.55-1.02); EST Glomerular Filtration Rate 39 mL/min (>60); Est Glom Filt Rate - Afr Amer 47 mL/min (>60); Glucose 158 mg/dL (74-106); Lipase 17 U/L (13-75); Potassium 3.2 mmol/L (3.5-5.1); Sodium Level 143 mmol/L (136-145)
== END | disposition home or self-care (01) ==
LOC: LAB 10:16
PROVIDERS: PCP Internal Medicine; Visit Provider Internal Medicine
DX: R10.12 Left upper quadrant pain (principal); R39.9 Unspecified symptoms and signs involving the genitourinary system
CPT/HCPCS: 36415; 80053; 82150; 83690; 85027; 85652; 86140

== ENCOUNTER → 2023-04-06 | Outpatient (CLI) | payer MEDICARE, SELFPAY ==
--- NOTE | 2023-04-06 06:50 | US_ITS ---
STUDY: ABDOMINAL ULTRASOUND-LEFT UPPER QUADRANT REASON FOR VISIT: Female, 77 years old LUQ Pain TECHNIQUE: Ultrasound evaluation of the left upper quadrant was performed with real-time and static putnam-scale imaging. TECHNICAL QUALITY: Adequate. COMPARISON: CT of abdomen and pelvis dated July 29, 2017 FINDINGS: Spleen: Normal size of the spleen. The spleen measures 9.6 x 5.1 x 5.1 cm. No visualized splenic masses or cysts. Left Kidney: Normal size of the left kidney. The left kidney measures 9.4 x 4.3 x 5.2 cm. Normal renal cortex. There is no demonstrated renal mass. A simple cyst is present in the midpole of the left kidney measuring 1.2 x 1.0 cm. This cyst does not require any additional imaging or evaluation. There is no left hydronephrosis. No echogenic stones are seen on this study. No visualized ascites. US/Abdomen Limited IMPRESSION: 1. Unremarkable left upper quadrant ultrasound examination. Electronically Signed: Jackson Kramer MD at 12:29 EST ,
== END | disposition home or self-care (01) ==
LOC: US 06:50
PROVIDERS: PCP Internal Medicine; Referring Provider Internal Medicine; Visit Provider Internal Medicine
DX: K62.89 Other specified diseases of anus and rectum (principal); R10.12 Left upper quadrant pain
CPT/HCPCS: 76705

== ENCOUNTER 2023-06-08 12:54 | Inpatient (IN) | payer MEDICARE, SELFPAY ==
[2023-06-08] VITALS (8 sets, daily range): BP systolic 104–147; BP diastolic 64–119; PULSE 79–137; RESP 16–21; TEMP 36.6–37; O2SAT 92–94; BMI 27.6; BMI 27.8
--- NOTE | 2023-06-08 14:26 | EKG12_ITS ---
Test Reason : DYSRHYTHMIA Blood Pressure : / mmHG Vent. Rate : 120 BPM Atrial Rate : 000 BPM P-R Int : 000 ms QRS Dur : 084 ms QT Int : 168 ms P-R-T Axes : 000 -06 172 degrees QTc Int : 237 ms Poor data quality, interpretation may be adversely affected Atrial fibrillation with rapid ventricular response Nonspecific ST and T wave abnormality Abnormal ECG Confirmed by Parish Rich ([id number]), desk editor ARNALDO ARGUETA ([id number]) on 06/09/2023 9:38:39 AM Referred By: SARAHI Confirmed By:Parish Rich
--- NOTE | 2023-06-08 14:26 | VDLE_ITS ---
Reason For Study: pain RIGHT LEFT CFV is compressible, spontaneous, phasic, CFV is compressible, spontaneous, phasic, competent and demonstrates normal competent, and demonstrates normal augmentation. augmentation. Procedure Acute deep vein thrombosis is noted in the This is a venous duplex using B-mode, color FV. It is dilated and NONCOMPRESSIBLE. flow and spectral Doppler. Acute deep vein thrombosis is noted in the Exam performed portable in ED. POP V. It is dilated and NONCOMPRESSIBLE. The exam was diagnostic. Acute deep vein thrombosis is noted in the A preliminary report was called and/or faxed T/P Trunk. It is dilated and NONCOMPRESSIBLE. to Dr. Duarte. Acute deep vein thrombosis is noted in the Gastrocnemius V. It is dilated and NONCOMPRESSIBLE. Acute deep vein thrombosis is noted in the PTV. It is dilated and NONCOMPRESSIBLE. Acute deep vein thrombosis is noted in the Per V. It is dilated and NONCOMPRESSIBLE. Acute deep vein thrombosis is noted in the Soleus V. It is dilated and NONCOMPRESSIBLE. GSV is normal. VL/Venous Duplex US, Unilateral Interpretation Summary Acute deep vein thrombosis is noted in the left femoral vein, popliteal vein, t ibioperoneal trunk vein, gastrocnemius vein, posterior tibial vein, peroneal vein, soleus vein. Ordering Physician: Ketty Duarte Performed By: Bret Gilliland RVSarina
--- NOTE | 2023-06-08 14:28 | EX.ED.DYSGE1 ---
HPI History of Present Illness Chief Complaint: Lower Extremity Injury Informant: patient Narrative Narrative: Patient presents with a 1 week history of left calf pain and swelling. She denies any known injury to the area. As the patient is in the room nursing staff places her on the property assessment monitor and appears that she is in new onset A-fib with A-fib RVR as well. She has some shortness of breath which seems to be chronic for her. She denies chest pain. [facility] Medical History (Updated 06/08/23 @ 15:[address] Ketty Duarte MD) Breast CA COVID-19 Diabetes Encounter for screening for COVID-19 GERD (gastroesophageal reflux disease) Neuropathy Home Medications metformin 500 mg tablet 500 mg PO BID DIABETES 08/25/16 [History Last Taken 10/07/16] methenamine hippurate 1 gram tablet 1 g PO DAILY UTI PREVENTATIVE 09/04/20 [History Last Taken Unknown] levocetirizine 5 mg tablet (Xyzal) 5 mg PO DAILY 02/17/22 [History Last Taken Unknown] lisinopril 10 mg tablet 10 mg PO DAILY 02/17/22 [History Last Taken Unknown] betamethasone, augmented 0.05 % topical ointment 1 applic topical BID SWELLING/ITCHING 06/08/23 [History Last Taken Unknown] duloxetine 60 mg capsule,delayed release 60 mg PO DAILY DEPRESSION 06/08/23 [History Last Taken Unknown] gabapentin 300 mg capsule 600 mg PO TID NEUROPATHY 06/08/23 [History Last Taken Unknown] multivitamin 1 tab PO DAILY HEALTH MAINTENANCE 06/08/23 [History Last Taken Unknown] omega-3 fatty acids 1,000 mg capsule 1,000 mg PO DAILY SUPPLEMENT 06/08/23 [History Last Taken Unknown] omeprazole 20 mg capsule,delayed release 20 mg PO DAILY GERD 06/08/23 [History Last Taken Unknown] Allergy/AdvReac Type Severity Reaction Status Date / Time morphine Allergy Rash Verified 06/08/23 12:56 Family History Brother Cancer Mother Diabetes Surgical History H/O mastectomy History of appendectomy History of cholecystectomy History of repair of hiatal hernia Social History Smoking Status: Never smoker alcohol intake: never substance use type: does not use ROS ROS ED Constitutional Constitutional ED: Denies chills or fever(s) Eyes Eyes: Denies discharge from eye(s) ENT ENT ED: Denies discharge from eye(s), rhinorrhea or sore throat Cardiovascular Cardiovascular: Denies chest pain or palpitations Respiratory/Chest Respiratory/Chest: Reports dyspnea Gastrointestinal Gastrointestinal: Denies abdominal pain, nausea or vomiting Musculoskeletal Musculoskeletal: Reports extremity pain; Denies back pain Integumentary Denies Abrasions or rash Neurologic Neurologic: Denies headache(s) or weakness Allergic/Immunologic Allergic/Immunologic ED: Denies lip swelling or urticaria EXAM Physical Exam Const Vital Signs: 06/08/23 12:54 06/08/23 12:54 06/08/23 14:54 Temperature 98 F 97.9 F 98.1 F Temperature Source Temporal Oral Temporal Pulse Rate 79 137 H 115 H Respiratory Rate 16 16 21 H Blood Pressure 104/66 147/119 H 105/64 Blood Pressure Mean 78 128 77 Pulse Ox 93 93 93 Oxygen Delivery Method Room Air Room Air Room Air Positive well nourished and well developed General Appearance ED: well developed HEENT Reports moist mucous membranes Eyes EOMs intact bilaterally Chest Wall inspection of chest normal and palpation of chest normal Resp normal respiratory effort and clear to auscultation bilaterally Cardio Rate: tachycardic Rhythm: abnormal rhythm irregularly irregular GI non-tender Palpation: soft Extremity Extremity Narrative: Left calf tenderness and edema. No overlying skin change. Neuro oriented x3 Psych mental status grossly normal Skin no rashes or lesions noted MDM MDM MDM Narrative Medical decision making narrative: Patient placed on property assessment monitor. EKG obtained to evaluate for cardiac arrhythmia/ischemia. Chest x-ray obtained to evaluate for acute lung pathology, cardiac size, or mediastinal abnormality. IV line initiated. Labwork obtained to evaluate for leukocytosis, anemia, and electrolyte derangement. Venous ultrasound of the left lower extremity obtained to evaluate for potential DVT. History & Record Review Discussion w/independent historian: Patient Lab Data Attestation: I reviewed the patient's lab results. Labs: Laboratory Results - last 24 hr 06/08/23 14:39 WBC 17.0 H RBC 5.45 H Hgb 14.7 Hct 47.1 H MCV 86.4 MCH 27.0 MCHC 31.2 L RDW Std Deviation 47.4 H RDW Coeff of Shazia 15.1 H Plt Count 231 MPV 10.0 Immature Gran % (Auto) 0.700 Neut % (Auto) 83.4 H Lymph % (Auto) 9.2 L Swain % (Auto) 4.8 Eos % (Auto) 1.3 Baso % (Auto) 0.6 Absolute Neuts (auto) 14.2 H Absolute Lymphs (auto) 1.56 Nucleated RBC % 0 Sodium 132 L Potassium 3.2 L Chloride 98 Carbon Dioxide 26.0 Anion Gap 8 BUN 11 Creatinine 1.57 H Estim Creat Clear Calc 24.30 Est GFR (MDRD) Af Amer 41 L Est GFR (MDRD) Non-Af 34 L BUN/Creatinine Ratio 7.0 L Glucose 174 H Calcium 13.0 H* Troponin I High Sens 90 H B-Natriuretic Peptide 29.1 TSH 0.88 Treatment and Re-Evaluation :: Venous ultrasound of the left upper extremity reveals extensive clot throughout the left lower extremity. EKG is atrial fibrillation with ventricular rate of 120. No significant ST change. CBC was a white count of 17,000 with 83% neutrophils. Hemoglobin is 14.7. Chemistry studies reveal a BUN of 11 and a creatinine 1.57. Potassium is slightly low at 3.2. Glucose is 174. Calcium is elevated at 13. TSH is 0.88. Troponin is elevated at 90. Patient had received a dose of fentanyl for pain control. Upon completion of her venous ultrasound she is given a dose of Lovenox as well as a dose of Cardizem for rate control IV fluids have been initiated given her hypercalcemia. Oral potassium replacement is ordered for her hypokalemia. I will speak with hospitalist regarding admission. Patient does have a history of breast cancer that she states is in remission. It appears that she had followed with Dr. Raya previously. Discharge Plan Triage Chief Complaint: Lower Extremity Injury ED Provider: Ketty Duarte Dx/Rx/DC Orders Clinical Impression: DVT (deep venous thrombosis), Elevated troponin, Atrial fibrillation, new onset, Atrial fibrillation with RVR, Hypokalemia, Hypercalcemia Prescriptions: No Action lisinopril 10 mg tablet 10 mg PO DAILY levocetirizine [Xyzal] 5 mg tablet 5 mg PO DAILY metformin 500 MG tablet 500 mg PO BID Patient Comments: DIABETES methenamine hippurate 1 gram tablet 1 g PO DAILY betamethasone, augmented 0.05 % ointment 1 applic TOPICAL BID Rx Instructions: APPLY OINTMENT TOPICALLY TO AFFECTED AREAS ON BODY TWICE DAILY FOR 2 WEEKS, THEN TAKE 1 WEEK OFF IN BETWEEN APPLICATIONS RESUMING NEEDED FOR FLARING. duloxetine 60 mg capsule,delayed release(DR/EC) 60 mg PO DAILY gabapentin 300 mg capsule 600 mg PO TID Rx Instructions: TAKE 2 CAPSULES BY MOUTH IN THE MORNING, 2 CAPSULES AT DINNER AND 2 CAPSULES AT BEDTIME DAILY. omeprazole 20 mg capsule,delayed release(DR/EC) 20 mg PO DAILY multivitamin Tablet 1 tab PO DAILY omega-3 fatty acids 1,000 mg capsule 1,000 mg PO DAILY Primary Care Provider: Analilia Miramontes Referrals: Analilia Miramontes DO [Primary Care Provider] - Disposition Disposition: Acute Care Hospital [facility]
[2023-06-08] MEDS: fentaNYL 100 MCG/2 ML Ampul 12.5 MCG IV ×2 (14:41→17:25)
[2023-06-08 15:03] LABS: Absolute Lymphocyte Count 1.56 X10^3/uL (0.83-4.51); Absolute Neutrophil Count 14.2 X10^3/uL (2.0-7.7); Basophil% 0.6 % (0-1); Eosinophil# 0.22 X10^3/uL; Eosinophils% 1.3 % (0-5); Hematocrit 47.1 % (37-47); Hemoglobin 14.7 g/dL (12.0-15.0); Lymphocyte # 1.56 X10^3/ul (0.83-4.51); Lymphocyte % 9.2 % (19-41); Mean Corp Hgb Conc 31.2 g/dL (32-36); Mean Corpuscular Volume 86.4 fL (81-99); Monocyte# 0.81 X10^3/uL; Monocyte% 4.8 % (0-10); NRBC Flagged by Analyzer 0 % (0-5); Neutrophil # 14.15 X10^3/uL (2.7-7.7); Neutrophil % 83.4 % (47-70); Platelet Count 231 K/mm3 (150-450); RBC Distribution Width CV 15.1 % (11.6-14.6); RBC Distribution Width SD 47.4 fl (35.1-43.9); Red Blood Count 5.45 M/mm3 (4.2-5.4)
[2023-06-08] MEDS: dilTIAZem 25 MG/5 ML Vial 10 MG IV BOLUS (15:11)
[2023-06-08 15:22] LABS: BNP,B-Type NATRIURETIC PEPTIDE 29.1 pg/mL (0-100)
[2023-06-08 15:31] LABS: Anion Gap 8 (5-15); BUN 11 mg/dL (7-18); Chloride 98 mmol/L (98-107); Creatinine, Serum 1.57 mg/dL (0.55-1.02); EST Glomerular Filtration Rate 34 mL/min (>60); Est Glom Filt Rate - Afr Amer 41 mL/min (>60); Glucose 174 mg/dL (74-106); Potassium 3.2 mmol/L (3.5-5.1); Sodium Level 132 mmol/L (136-145); Thyroid Stim Hormone (TSH) 0.88 uIU/mL (0.358-3.74); Troponin-I HS 90 pg/mL (3.0-54.0)
[2023-06-08] MEDS: 0.9% Normal Saline (500mL Bag) 500 ML 999 ML IV (15:57)
[2023-06-08] MEDS: Potassium Chloride Oral Tablet 20 MEQ 40 MEQ PO (15:59)
[2023-06-08] MEDS: 0.9% Normal Saline (1000mL) 1,000 ML 150 ML IV (15:59)
[2023-06-08] MEDS: Enoxaparin 60 MG/0.6 ML Syringe SC (16:03)
--- NOTE | 2023-06-08 16:06 | RAD_ITS ---
STUDY: X-RAY CHEST REASON FOR EXAM: Female, 77 years old. sob TECHNIQUE: Single frontal view of the chest. COMPARISON: January 25, 2023. FINDINGS: Skin radha right lateral chest wall. The lungs are clear and expanded. There is no demonstrated pleural abnormality. Cardiomegaly. Normal mediastinum and damaris. Normal visualized pulmonary arteries. Normal visualized aortic arch and descending thoracic aorta. Normal visualized thoracic spine. Normal visualized ribs, clavicles, and shoulders. There is no demonstrated abnormality of the visualized soft tissue structures of the upper abdomen. RAD/Chest 1 View (Portable) IMPRESSION: No acute disease Electronically Signed: Teofilo Olivares MD at 16:54 EST ,
--- NOTE | 2023-06-08 19:07 | PCM.HP.STD ---
HPI - General General Date of Admission: 06/08/23 Date of Service: 06/08/23 Chief Complaint: Left calf pain and swelling HPI Narrative HERNESTO TOLEDO, is a 77 F who presented to the emergency department [facility] on 06/08/2023 with a chief complaint of left calf pain and swelling. She was also found to be a new onset A-fib with RVR on presentation but had only some shortness of breath and no other symptoms. Her only complaint is left pain in her calf that has been ongoing for about 2 days. She states she has noted increased swelling in that area as well. She had no other symptoms. She denies any headache, change in mental status, nausea or vomiting, constipation, diarrhea, arthralgias or myalgias and states she would not of come in if she did not have the leg swelling. Vital signs on presentation showed temperature of 98.1, heart rate was 115, blood pressure 105/64, respiratory 21 oxygen saturation 93% on room air. CBC showed a leukocytosis with a left shift however I suspect this is reactive as she has no signs of any infection. Her chemistry panel shows mild hyponatremia the sodium of 132, hypokalemia with a potassium of 3.2, elevated serum creatinine at 1.57, glucose is 174, calcium is 13, troponin was 90 with a normal BNP and TSH was 0.88. EKG shows A-fib with RVR, normal intervals and no ST-T wave changes concerning for acute ischemia. Lower extremity Doppler showed acute DVT of the left femoral, popliteal, tibioperoneal trunk, gastrocnemius, posterior tibial, peroneal, and soleal veins. Chest x-ray is unremarkable. I asked that a CTA of her chest be done however she is a 22 and her thumb and that cannot be done until we get better IV access so I requested an midline placement. She was started on anticoagulation in the emergency department in the form of a heparin drip and given IV fluids and potassium replacement as well as diltiazem bolus x 1. [facility] Medical History Breast CA COVID-19 Diabetes Encounter for screening for COVID-19 GERD (gastroesophageal reflux disease) Neuropathy Home Medications methenamine hippurate 1 gram tablet 1 g PO DAILY UTI PREVENTATIVE 09/04/20 [History Last Taken 06/06/23] betamethasone, augmented 0.05 % topical ointment 1 applic topical BID SWELLING/ITCHING 06/08/23 [History Last Taken 06/06/23] duloxetine 60 mg capsule,delayed release 60 mg PO DAILY DEPRESSION 06/08/23 [History Last Taken 06/06/23] gabapentin 300 mg capsule 600 mg PO TID NEUROPATHY 06/08/23 [History Last Taken 06/08/23] metformin 500 mg tablet,extended release 24 hr 1,000 mg PO BID DIABETES 06/08/23 [History Last Taken 06/06/23] multivitamin 1 tab PO DAILY HEALTH MAINTENANCE 06/08/23 [History Last Taken 06/06/23] omega-3 fatty acids 1,000 mg capsule 1,000 mg PO DAILY SUPPLEMENT 06/08/23 [History Last Taken 06/06/23] omeprazole 20 mg capsule,delayed release 20 mg PO DAILY GERD 06/08/23 [History Last Taken 06/06/23] turmeric 400 mg capsule 400 mg PO DAILY SUPPLEMENT 06/08/23 [History Last Taken 06/06/23] Allergy/AdvReac Type Severity Reaction Status Date / Time morphine Allergy Rash Verified 06/08/23 12:56 Family History Brother Cancer Mother Diabetes Surgical History H/O mastectomy History of appendectomy History of cholecystectomy History of repair of hiatal hernia Social History (Updated 06/08/23 @ 19:[address] Linda Carter DO) household members: family housing: house current occupational status: retired Smoking Status: Never smoker alcohol intake: never substance use type: does not use Vital Signs Vital Signs Vital Signs: 06/08/23 12:54 06/08/23 12:54 06/08/23 14:54 Temperature 98 F 97.9 F 98.1 F Temperature Source Temporal Oral Temporal Pulse Rate 79 137 H 115 H Respiratory Rate 16 16 21 H Blood Pressure 104/66 147/119 H 105/64 Blood Pressure Mean 78 128 77 Pulse Ox 93 93 93 Oxygen Delivery Method Room Air Room Air Room Air 06/08/23 16:00 06/08/23 16:58 06/08/23 18:27 Temperature 98.1 F 98.1 F 98.6 F Temperature Source Temporal Oral Pulse Rate 120 H 112 H 119 H Respiratory Rate 18 16 16 Blood Pressure 119/75 134/94 H 144/87 H Blood Pressure Mean 89 107 106 Pulse Ox 92 93 93 Oxygen Delivery Method Room Air Room Air Weight Weight: 64.2 kg Body Mass Index (BMI) 27.6 Physical Exam Const alert, oriented x3, no apparent distress, average body habitus and well nourished Constitutional Narrative: Very pleasant, elderly, white female, sitting up in bed, appears comfortable and nontoxic, only complains of leg pain General Appearance: cooperative HEENT normocephalic, head/scalp atraumatic and moist oral mucous membranes HEENT Narrative: Mild to moderate hearing loss, Mallampati is 2 Eyes PERRL, EOMs intact bilaterally and conjunctivae normal Eyes Narrative: No scleral icterus Neck no lymphadenopathy, supple, no JVD and no carotid bruits Neck Narrative: Trachea midline, no thyroid enlargement Resp normal respiratory effort, no retractions, no use of accessory muscles and clear to auscultation bilaterally Auscultation: Negative for rales, rhonchi or wheezes Cardio S1 normal heart sound, S2 normal heart sound, no murmurs, no rub, no gallops and no clicks; Negative for regular rate or regular rhythm Cardio Narrative: Irregular regular rhythm with tachycardia GI normal to inspection, nondistended, normoactive bowel sounds, soft to palpation and non-tender Extremity Extremity Narrative: Left lower extremity swelling mostly in the calf region with some mild swelling distally on the left, pedal pulses are 2+ bilaterally, right lower extremity is unremarkable, no clubbing or cyanosis Skin no rashes or lesions noted, no wounds, skin turgor normal, no jaundice, no petechiae and no mottling Neuro oriented x3, CN's II-XII intact bilaterally, moves all extremities and no focal motor deficits Speech: speech normal Psych affect normal Results Lab / Micro Data 06/08/23 14:39 06/08/23 14:39 Labs: Laboratory Results - last 24 hr 06/08/23 14:39: WBC 17.0 H, RBC 5.45 H, Hgb 14.7, Hct 47.1 H, MCV 86.4, MCH 27.0, MCHC 31.2 L, RDW Std Deviation 47.4 H, RDW Coeff of Shazia 15.1 H, Plt Count 231, MPV 10.0, Immature Gran % (Auto) 0.700, Neut % (Auto) 83.4 H, Lymph % (Auto) 9.2 L, Bill[place] % (Auto) 4.8, Eos % (Auto) 1.3, Baso % (Auto) 0.6, Absolute Neuts (auto) 14.2 H, Absolute Lymphs (auto) 1.56, Nucleated RBC % 0, Sodium 132 L, Potassium 3.2 L, Chloride 98, Carbon Dioxide 26.0, Anion Gap 8, BUN 11, Creatinine 1.57 H, Estim Creat Clear Calc 24.30, Est GFR (MDRD) Af Amer 41 L, Est GFR (MDRD) Non-Af 34 L, BUN/Creatinine Ratio 7.0 L, Glucose 174 H, Calcium 13.0 H*, Troponin I High Sens 90 H, B-Natriuretic Peptide 29.1, TSH 0.88 Imaging Radiology Impression Venous Doppler Study 06/08/23 14:26 Interpretation Summary Acute deep vein thrombosis is noted in the left femoral vein, popliteal vein, tibioperoneal trunk vein, gastrocnemius vein, posterior tibial vein, peroneal vein, soleus vein. Ordering Physician: Ketty Duarte Performed By: Bret Gilliland RVT Chest X-Ray 06/08/23 16:06 IMPRESSION: No acute disease Electronically Signed: Teofilo Olivares MD at 16:54 EST , Assessment & Plan Assessment/Plan (1) Hypercalcemia: (2) Hypokalemia: (3) Atrial fibrillation with RVR: (4) Atrial fibrillation, new onset: (5) Elevated troponin: (6) DVT (deep venous thrombosis): (7) Leukocytosis: (8) Elevated serum creatinine: PLAN: Plan New onset A-fib with RVR -Patient is still tachycardic but did slow down with her Cardizem -Will utilize metoprolol since we do not know her EF -Will schedule metoprolol 50 mg p.o. twice daily -Check echocardiogram -Cycle cardiac enzymes -Will check CTA of the chest with lower extremity PE as this could be the inciting factor for development of A-fib -Check TSH -Will use heparin drip at this time in case any invasive procedures are required but then likely transition to Eliquis at discharge Left lower extremity pain secondary to extensive DVT -Anticoagulation as above -Venous Doppler showed acute DVT in the left femoral vein popliteal vein and tibioperoneal trunk gastrocnemius vein posterior tibial vein and peroneal vein and soleal vein -Tylenol and oxycodone available for pain -Avoid NSAIDs due to elevated creatinine and anticoagulation Elevated serum creatinine -Baseline appears to have been running between 0.9 and 1 -1.57 on admission -Patient's not on any diuretics -Aggressive IV fluids for hypercalcemia -Recheck in a.m. Hypercalcemia -Check intact PTH -Check vitamin D level -Check liver panel for alk phos and if alk phos elevated would recommend GGT -Patient with history of breast cancer so I would be worried for bone metastasis however she has had previous hypercalcemia but does not remember this incident and cannot tell me the etiology -Aggressive IV hydration as patient is fairly asymptomatic with regards to her hypercalcemia -Will give 1 dose of pamidronate -A.m. ionized calcium is pending Elevated troponin -We will cycle cardiac enzymes -Highly anticipate demand ischemia related to her A-fib with RVR -Check echocardiogram -CT of the chest is pending to rule out PE as this could be etiology as well Hypokalemia -P.o. potassium replacement -Check a.m. magnesium level -Repeat BMP in a.m. Leukocytosis -No symptoms consistent with infection -Likely reactive related to what is going on above -Will trend and follow symptoms History of breast cancer -Diagnosed 8 years ago and currently in remission -Has followed previously as an outpatient with Dr. Raya -May need further workup depending on above findings as the etiology for her hypercalcemia as I would be concerned about metastatic disease GERD -Continue home PPI DM-2 -Hold metformin with renal function -SSI -Diabetic diet -Accu-Cheks as ordered -Check hemoglobin A1c Diabetic neuropathy -Continue home gabapentin well but reduce to 200 mg 3 times daily from 600 mg 3 times daily due to renal dysfunction Allergies -Continue home medication Depression -Continue home duloxetine DVT prophylaxis -Heparin drip for DVT diagnosis as noted above CODE STATUS Full code is verified admission Charges/Coding Visit Charges Inpatient E&M: 26030 Init Hosp L3
--- NOTE | 2023-06-08 20:11 | ECHOCS_ITS ---
Reason For Study: Afib, Aflutter Procedure This was a 2D Doppler, Color Flow transthoracic echocardiogram. Contrast injection was performed. Exam performed portable in patient room. Left Ventricle Normal size and thickness. Moderately severe global left ventricular systolic dysfunction. The left ventricular ejection fraction is 35 %. Stage 1 diastolic dysfunction. Right Ventricle Mildly dilated right ventricle. Moderately severe global right ventricular systolic dysfunction. Atria There is mild biatrial dilatation. Mitral Valve Mild (1+) mitral valve insufficiency. Tricuspid Valve Moderate (2+) tricuspid valve insufficiency. Right ventricular systolic pressure estimated to be 46 mmHg. Aortic Valve Trisinus/trileaflet aortic valve. Trivial aortic valve insufficiency. Pulmonic Valve The pulmonic valve is not well visualized. Trivial pulmonic valve insufficiency. Great Vessels Normal sized aortic root. The inferior vena cava is dilated. Pericardium/Pleural No pericardial effusion. Medication Diluted definity 2ml given slow IV push to enhance endocardial definition. MMode/2D Measurements & Calculations LVIDd: 3.7 cm IVSd: 1.1 cm Ao root diam: 3.1 cm LVIDs: 3.0 cm LVPWd: 1.1 cm RVDd: 3.3 cm FS: 18.4 % LAV(MOD-bp): 31.6 ml LVAd ap4: 20.4 cm2 SV(MOD-sp4): 22.7 ml LAV(MOD-bp) Indexed: 20.0 ml/m2 LVLd ap4: 7.0 cm LAV(MOD-sp2): 24.5 ml EDV(MOD-sp4): 49.3 ml LAV(MOD-sp4): 34.0 ml EDV(sp4-el): 50.4 ml LVAs ap4: 13.0 cm2 LVLs ap4: 5.3 cm ESV(MOD-sp4): 26.5 ml ESV(sp4-el): 27.1 ml EF(MOD-sp4): 46.1 % EF(sp4-el): 46.3 % SV(sp4-el): 23.4 ml LA A4 area: 14.6 cm2 LA dimension(2D): 3.4 cm RA A4 area: 11.7 cm2 TAPSE: 1.8 cm Time Measurements MV dec time: 0.28 sec Doppler Measurements & Calculations MV E max rudi: 54.1 cm/sec Lat Peak E' Rudi: 4.3 cm/sec Med Peak E' Rudi: 4.5 cm/sec MV A max rudi: 103.8 cm/sec E/E' lat: 12.5 E/E' med: 12.1 MV E/A: 0.52 MV dec slope: 198.9 cm/sec2 Ao V2 max: 122.6 cm/sec LV V1 max: 93.6 cm/sec Ao max P.1 mmHg LV V1 max P.6 mmHg Ao V2 mean: 84.0 cm/sec LV V1 mean P.9 mmHg Ao mean P.3 mmHg LV V1 mean: 64.0 cm/sec Ao V2 VTI: 22.6 cm LV V1 VTI: 15.5 cm AV (velocity ratio): 0.69 PA V2 max: 67.4 cm/sec TR max rudi: 278.1 cm/sec TR max P.9 mmHg ECHO/Echo Complete W/ Contrast Interpretation Summary Moderately severe global left ventricular systolic dysfunction. The left ventricular ejection fraction is 35 %. Stage 1 diastolic dysfunction. Moderately severe global right ventricular systolic dysfunction. There is mild biatrial dilatation. Mild (1+) mitral valve insufficiency. Moderate (2+) tricuspid valve insufficiency. Right ventricular systolic pressure estimated to be 46 mmHg. Ordering Physician: Linda Carter Referring Physician: Analilia Miramontes Performed By: Fe Nicole, MELO, RVT
[2023-06-08 20:36] LABS: PTHIN 18.4 pg/mL (18.4-80.1)
[2023-06-08] MEDS: Gabapentin 100 MG Capsule 200 MG PO (22:34)
[2023-06-08] MEDS: oxyCODONE 5 MG Tablet PO (22:35)
[2023-06-08] MEDS: Metoprolol Tartrate 50 MG Tablet PO (22:35)
[2023-06-08] MEDS: Clobetasol Propionate 0.05% Ointment 1 APPLIC TOPICAL (22:36)
[2023-06-08] MEDS: 0.9% Saline Lock 10 ML Syringe IV (22:40)
[2023-06-08 22:46] LABS: International Normalized Ratio 1.3; Partial Thromboplast Time 37.4 Seconds (24.1-36.2); Prothrombin Time (Protime)PT. 15.8 SECONDS (11.7-14.9)
[2023-06-08] MEDS: Pamidronate Disodium 60 MG in 0.9% Normal Saline (500mL Bag) 500 ML 250 MG IV (22:46)
[2023-06-08 22:55] LABS: Vitamin D,25 Hydroxy 43.2 ng/mL
[2023-06-08] MEDS: MELATONIN 3 MG TABLET PO (22:55)
[2023-06-08 23:00] LABS: Troponin-I HS 226 pg/mL (3.0-54.0)
[2023-06-08] MEDS: Heparin Injection (Vial) 5,000 UNIT/ML VIAL 4500 UNIT IV (23:19)
[2023-06-08] MEDS: HEPARIN/D5w 25,000 UNITS 25,000 UNITS/250 ML IV.SOLN. 10 UNITS CONT INF (23:28)
[2023-06-08 23:32] LABS: Bedside Glucose 228 mg/dL (74-106)
[2023-06-09] VITALS (8 sets, daily range): BP systolic 95–146; BP diastolic 71–91; PULSE 83–86; RESP 16–18; TEMP 36.3–37; O2SAT 94–97; BMI 29.0
[2023-06-09 00:31] LABS: Troponin-I HS 198 pg/mL (3.0-54.0)
[2023-06-09] MEDS: Ondansetron 4 MG/2 ML Vial IV ×3 (00:50→17:42)
[2023-06-09] MEDS: 0.9% Normal Saline (1000mL) 1,000 ML 150 ML IV ×4 (00:53→18:47)
[2023-06-09 04:21] LABS: Troponin-I HS 133 pg/mL (3.0-54.0)
--- NOTE | 2023-06-09 05:05 | EKG12_ITS ---
Test Reason : AM EKG Blood Pressure : / mmHG Vent. Rate : 082 BPM Atrial Rate : 082 BPM P-R Int : 240 ms QRS Dur : 086 ms QT Int : 392 ms P-R-T Axes : 071 -21 039 degrees QTc Int : 457 ms Sinus rhythm with marked sinus arrhythmia with 1st degree A-V block Minimal voltage criteria for LVH, may be normal variant ( R in aVL ) Nonspecific T wave abnormality Abnormal ECG When compared with ECG of 08-JUN-2023 14:40, MANUAL COMPARISON REQUIRED, DATA IS UNCONFIRMED Confirmed by Parish Rich ([id number]), greeting card editor ARNALDO ARGUETA ([id number]) on 06/09/2023 1:33:15 PM Referred By: Confirmed By:Parish Rich
[2023-06-09] MEDS: Gabapentin 100 MG Capsule 200 MG PO ×3 (05:36→21:22)
[2023-06-09] MEDS: Insulin Lispro 100 UNIT/ML INSULN.PEN SC ×2 (06:19→16:20)
[2023-06-09 06:39] LABS: Bedside Glucose 168 mg/dL (74-106)
[2023-06-09 06:53] LABS: Absolute Neutrophil Count 6.2 X10^3/uL (2.0-7.7); Basophil# 0.05 X10^3/uL; Basophil% 0.6 % (0-1); Eosinophil# 0.12 X10^3/uL; Eosinophils% 1.5 % (0-5); Hematocrit 38.5 % (37-47); Hemoglobin 12.1 g/dL (12.0-15.0); Mean Corp Hgb Conc 31.4 g/dL (32-36); Mean Corpuscular Hgb 27.7 pg (27.0-32.0); Mean Corpuscular Volume 88.1 fL (81-99); Monocyte# 0.42 X10^3/uL; Monocyte% 5.2 % (0-10); NRBC Flagged by Analyzer 0 % (0-5); Neutrophil # 6.19 X10^3/uL (2.7-7.7); Neutrophil % 76.2 % (47-70); Platelet Count 174 K/mm3 (150-450); RBC Distribution Width CV 15.3 % (11.6-14.6); RBC Distribution Width SD 49.5 fl (35.1-43.9); Red Blood Count 4.37 M/mm3 (4.2-5.4); White Blood Count 8.1 K/mm3 (4.4-11.0)
--- NOTE | 2023-06-09 07:19 | PN.HOSP_ITS ---
Reason for Visit Reason for Visit: Diagnoses Elevated white blood cell count, unspecified (06/08/23) Hypercalcemia (06/08/23) Hypokalemia (06/08/23) Unspecified atrial fibrillation (06/08/23) Acute embolism and thrombosis of unspecified deep veins of unspecified lower extremity (06/08/23) Other specified abnormal findings of blood chemistry (06/08/23) Objective Data Objective Data Vital Signs: Vital Signs Temp Pulse Resp BP Pulse Ox O2 Del Method 97.7 F L 83 18 95/71 97 Room Air 06/09/23 04:11 06/09/23 04:11 06/09/23 04:11 06/09/23 04:11 06/09/23 04:11 06/09/23 04:17 Oxygen Delivery Method Room Air Weight: 148 lb 9.465 oz Body Mass Index (BMI) 29.0 Intake & Output: Intake and Output for Last 24 Hours 06/07/23 06/08/23 06/09/23 23:59 23:59 23:59 Intake Total 1090 / 1090 1212.5 / 1212.5 Balance 1090 / 1090 1212.5 / 1212.5 Lab / Micro Data 06/09/23 06:35 06/09/23 06:35 Labs: Laboratory Results - last 24 hr 06/08/23 14:39: WBC 17.0 H, RBC 5.45 H, Hgb 14.7, Hct 47.1 H, MCV 86.4, MCH 27.0, MCHC 31.2 L, RDW Std Deviation 47.4 H, RDW Coeff of Shazia 15.1 H, Plt Count 231, MPV 10.0, Immature Gran % (Auto) 0.700, Neut % (Auto) 83.4 H, Lymph % (Auto) 9.2 L, Sebastian % (Auto) 4.8, Eos % (Auto) 1.3, Baso % (Auto) 0.6, Absolute Neuts (auto) 14.2 H, Absolute Lymphs (auto) 1.56, Nucleated RBC % 0, Sodium 132 L, Potassium 3.2 L, Chloride 98, Carbon Dioxide 26.0, Anion Gap 8, BUN 11, Cre atinine 1.57 H, Estim Creat Clear Calc 24.30, Est GFR (MDRD) Af Amer 41 L, Est GFR (MDRD) Non-Af 34 L, BUN/Creatinine Ratio 7.0 L, Glucose 174 H, Calcium 13.0 H*, Troponin I High Sens 90 H, B-Natriuretic Peptide 29.1, TSH 0.88, PTH Intact 18.4 06/08/23 22:20: PT 15.8 H, INR 1.3, APTT 37.4 H, Troponin I High Sens 226 H*, Vitamin D 25-Hydroxy 43.2 06/08/23 22:32: POC Glucose 228 H 06/08/23 23:53: Troponin I High Sens 198 H* 06/09/23 03:45: Troponin I High Sens 133 H* 06/09/23 06:18: POC Glucose 168 H 06/09/23 06:35: WBC 8.1, RBC 4.37, Hgb 12.1, Hct 38.5, MCV 88.1, MCH 27.7, MCHC 31.4 L, RDW Std Deviation 49.5 H, RDW Coeff of Shazia 15.3 H, Plt Count 174, MPV 10.0, Immature Gran % (Auto) 0.500, Neut % (Auto) 76.2 H, Lymph % (Auto) 16.0 L, Sebastian % (Auto) 5.2, Eos % (Auto) 1.5, Baso % (Auto) 0.6, Absolute Neuts (auto) 6.2, Absolute Lymphs (auto) 1.30, Nucleated RBC % 0 06/09/23 07:08: Ionized Calcium 5.80 H Radiography Diagnostic Testing: Radiology Impression Venous Doppler Study 06/08/23 14:26 Interpretation Summary Acute deep vein thrombosis is noted in the left femoral vein, popliteal vein, tibioperoneal trunk vein, gastrocnemius vein, posterior tibial vein, peroneal vein, soleus vein. Chest X-Ray 06/08/23 16:06 IMPRESSION: No acute disease Physical Exam Narrative Seen and examined. Patient has left leg swelling more than right. She had couple falls also about 2 days prior to admission. Denies shortness of breath chest pain or palpitation. Physical exam General: Alert, Oriented x3, Cooperative HEENT: Atraumatic, PERRLA, EOMI, Normocephalic Oral: No Gingival or Mucosal Lesions/ Ulcerations Neck: Supple, No JVD, Negative Carotid Bruits Chest wall/Lungs: Air entry diminished in bilateral lung bases. No crepitation/rhonchi Cardiovascular: Irregular rhythm, A-fib, HR controlled, Normal S1, Normal S2, No M/G/R Abdomen: Bowel Sounds Present, Soft, Non Tender, Non-Distended : No dysuria. No renal angle tenderness. No suprapubic tenderness. Extremities: Left calf swollen more than right, mild tenderness. Capillary Refill Less than 3 Seconds Skin: No rashes, No breakdown Musculoskeletal: No Tenderness to Palpation of Joints or Extremities. ROM res tricted on left knee due to Swelling Neurological: Cranial nerves II-XII grossly intact, DTR 2+/4. No acute focal neurological deficit. Psych/Mental Status: Normal Affect, Appropriate. Assessment & Plan Assessment/Plan (1) Hypercalcemia: (2) Hypokalemia: (3) Atrial fibrillation with RVR: (4) DVT (deep venous thrombosis): PLAN: Plan This 68-year-old female being admitted for 1 week history of left calf pain and swelling. She was found to be in A-fib with RVR with the cardiac monitoring d ailmeena. Chronic shortness of breath. No chest pain or pressure. 1. New onset A-fib with RVR, chronic biventricular heart failure, systolic and diastolic heart failure with moderate pulmonary hypertension: Patient is admitted in PCU. Heart rate is controlled but she had Cardizem in the ED. I think patient has new onset A-fib RVR with right sided heart failure due to PE. 2D echo was done which shows EF 35%, moderately severe global LV systolic dysfunction, stage I diastolic dysfunction, moderate-severe global RV systolic dysfunction mild biatrial dilatation, mild MR 2+ TR RVSP 46 mmHg consistent with moderate pulmonary hypertension. -Schedule metoprolol 50 mg p.o. twice daily 2. Elevated troponin most likely due to right ventricular strain from DVT and high clinical quality of PE and A-fib RVR consistent with demand ischemia. Left lower extremity pain secondary to extensive DVT with clinical suspicion of pulmonary embolism: Based on the echo finding of right-sided ventricular strain with ventricular dysfunction, elevated troponin in all probability it seems patient had pulmonary embolism. VQ scan ordered. . Heparin drip discontinued and started on enoxaparin 1 mg/kg body weight. Creatinine clearance less than 30 mill per minute. -Venous Doppler showed acute DVT in the left femoral vein popliteal vein and tibioperoneal trunk gastrocnemius vein posterior tibial vein and peroneal vein and soleal vein -Tylenol and oxycodone available for pain -Avoid NSAIDs due to elevated creatinine and anticoagulation SARBJIT on CKD stage IIIB, hypercalcemia, hypomagnesemia: -Baseline appears to have been running between 0.9 and 1 with estimated clearance about 32 mill per minute -1.57 on admission -Patient's not on any diuretics -Aggressive IV fluids for hypercalcemia. 1 dose of IV pamidronate 60 mg was given. -Repeat calcium shows improvement from 13.0-10.6. Serum phosphorus 2.9. Ionized calcium 5.8. Albumin 2.4. Hypokalemia and hypomagnesemia -P.o. potassium replacement. Hypomagnesemia magnesium 1.5 and 2 g IV magnesium ordered. Repeat potassium is 3.6 low normal History of breast cancer -Diagnosed 8 years ago and currently in remission -Has followed previously as an outpatient with Dr. Raya -May need further workup depending on above findings as the etiology for her hypercalcemia as I would be concerned about metastatic disease GERD -Continue home PPI DM-2 -Hold metformin with renal function -SSI -Diabetic diet -Accu-Cheks as ordered -Check hemoglobin A1c Diabetic neuropathy -Continue home gabapentin well but reduce to 200 mg 3 times daily from 600 mg 3 times daily due to renal dysfunction Allergies -Continue home medication Depression -Continue home duloxetine DVT prophylaxis -Heparin drip for DVT diagnosis as noted above CODE STATUS Full code is verified admission Clinical Impression(s) from Imaging Studies Venous Doppler Study 06/08/23 14:26 Interpretation Summary Acute deep vein thrombosis is noted in the left femoral vein, popliteal vein, tibioperoneal trunk vein, gastrocnemius vein, posterior tibial vein, peroneal vein, soleus vein. Chest X-Ray 06/08/23 16:06 IMPRESSION: No acute disease Echocardiogram 06/08/23 20:11 Interpretation Summary Moderately severe global left ventricular systolic dysfunction. The left ventricular ejection fraction is 35 %. Stage 1 diastolic dysfunction. Moderately severe global right ventricular systolic dysfunction. There is mild biatrial dilatation. Mild (1+) mitral valve insufficiency. Moderate (2+) tricuspid valve insufficiency. Right ventricular systolic pressure estimated to be 46 mmHg. Charges/Coding Addendum Addendum: Total time of the visit including total time spent in counseling or coordination of care, (more than 50% of the total time, spent in obtaining medical information from nurses and other ancillary care providers,explaining to the patient about labs, imaging, diagnosis and management of active complex medical conditions), multiple active medical conditions including A-fib RVR, thromboembolic disease DVT with Hypolar TFB, SARBJIT on CKD and multiple electrolyte abnormalities, review of labs and imaging is 40 minutes. Visit Charges Inpatient E&M: 23988 Subs Hosp L3
[2023-06-09 07:49] LABS: ALB/GLOB Ratio 0.9 RATIO (0.9-2.4); AST(SGOT) 40 U/L (15-37); Alanine Aminotransfer ALT/SGPT 23 U/L (13-56); Albumin, Serum 2.4 g/dL (3.2-5.0); Alkaline Phosphatase 75 U/L (45-117); Anion Gap 8 (5-15); BUN 13 mg/dL (7-18); BUN/Creat Ratio 9.4 RATIO (10-20); Calcium,Total 10.6 mg/dL (8.5-10.1); Chloride 106 mmol/L (98-107); Creatinine, Serum 1.38 mg/dL (0.55-1.02); EST Glomerular Filtration Rate 39 mL/min (>60); Est Glom Filt Rate - Afr Amer 47 mL/min (>60); Estimated Creatinine Clearance 28.32 ml/min; Globulin 2.7 g/dL (2.2-4.2); Glucose 180 mg/dL (74-106); Magnesium 1.5 mg/dL (1.6-2.6); Phosphorus 2.9 mg/dL (2.5-4.9); Potassium 3.6 mmol/L (3.5-5.1); Protein, Total 5.1 g/dL (6.4-8.2); Sodium Level 141 mmol/L (136-145)
[2023-06-09] MEDS: 0.9% Saline Lock 10 ML Syringe IV ×2 (08:22→12:27)
[2023-06-09 08:40] LABS: Partial Thromboplast Time 110.1 Seconds (24.1-36.2)
--- NOTE | 2023-06-09 09:49 | PRO.PCM_ITS ---
Procedure Report Date of Procedure: 06/09/23 Assessment & Plan Assessment/Plan (1) Poor venous access: PLAN: Midline insertion in left brachial vein: Patient identity was verified with two patient identifiers. Hands were sanitized. The patient was positioned supine with left arm at 90 degrees. The patient's upper arm vasculature was assessed using ultrasound, and the left vein was externally marked. An external measurement was obtained of 9 cm. Cap, mask, and prep gloves were donned. The underdrape was placed under the patient's arm. The site was prepped with chlorhexidine, and tourniquet was loosely applied. Prep gloves were discarded, and hands were sanitized. The sterile kit was opened with additional supplies dropped in. Sterile gown and gloves were donned, and the patient was draped. The sterile kit was assembled with all needle, introducer, connector, and catheter flushed with sterile normal saline. The marked site of insertion was anesthetized with 1% lidocaine. Patient tolerated well. The left brachial vein was then accessed using ultrasound guidance and guidewire was inserted to safety ronaldo. The tourniquet was released. The access needle was removed while securing the guidewire in place. The site was again anesthetized with 1% lidocaine, prior to insertion of introducer sheath and dilator. Patient tolerated well. The catheter was trimmed to a length of 9 cm and again flushed with sterile normal saline. The catheter was then inserted through the introducer sheath, slowly. There was no resistance on insertion. The introducer sheath was retracted and peeled away, incrementally, while keeping the catheter secured. The catheter was fully i nserted leaving 0 cm external. Blood return was verified and flushed needless connector was attached. The midline was flushed with sterile normal saline in a pulsatile fashion and clamped. Total sterile flushes used for the insertion was 2 10 ml syringes, one from the kit. Finally, the insertion site was cleaned with chlorhexidine, and the catheter was secured using a StatLock. The site was cove red with a Tegaderm CHG Dressing. Baseline arm circumference was obtained at the insertion site and measured 33 cm. The charge nurse is aware that the midline is ready for use. REF: [id number] LOT: [id number] Procedures Radiology Radiology Access Procedures: MIDL
[2023-06-09] MEDS: Pantoprazole Sodium 20 MG Tablet PO (11:11)
[2023-06-09] MEDS: Multivitamins,Therapeutic Tablet 1 TABLET PO (11:12)
[2023-06-09] MEDS: Metoprolol Tartrate 50 MG Tablet PO ×2 (11:12→21:23)
[2023-06-09] MEDS: DULoxetine Hcl 60 MG Capsule PO (11:12)
[2023-06-09] MEDS: Methenamine Hippurate 1 GM Tablet PO (11:12)
[2023-06-09] MEDS: Aspirin 81 MG TAB.CHEW PO (11:12)
[2023-06-09] MEDS: Omega-3 Acid Ethyl Esters 1 GM Capsule PO (11:15)
[2023-06-09] MEDS: Enoxaparin 80 MG/0.8 ML Syringe 70 MG SC (11:21)
[2023-06-09] MEDS: Clobetasol Propionate 0.05% Ointment 1 APPLIC TOPICAL ×2 (11:21→21:23)
[2023-06-09 11:44] LABS: Bedside Glucose 138 mg/dL (74-106)
[2023-06-09] MEDS: Potassium Chloride Oral Tablet 20 MEQ 40 MEQ PO (12:27)
--- NOTE | 2023-06-09 14:50 | CASEMGMT ---
RN CM Face to Face with patient for initial transition planning/care coordination assessment. RN CM introduced self and role at [facility]. Patient lying in bed, alert and oriented. Patient willing to participate in assessment and is able to answer all questions appropriately. Care providers, pharmacy, and demographics verified. PCP: Fe Specialists: Miguel Angel quality control lab technician [facility]erred [facility]acy: [facility] Insurance: [email or web address] Prescription Benefit: yes Living Will/HPOA: none, would like to complete, SW notified LNOK: sons Living Arrangements: Patient lives with son in a mobile home with 2 steps and railing to enter the home. Patient is independent at home for self care, son helps with waxing machine operator. Transportation: self, son DME/HHC: Patient has cane, may benefit from walker at discharge, will monitor. No previous HHC Or SNF. Patient wishes to discharge home, will monitor progress with therapy for possible HHC and walker. Patient states he has no further needs or concerns at this time. CM to follow for discharge planning needs that may arise. Disposition Plan: Patient to discharge home with family support and follow-up plans in place. Will monitor for HHC and walker at discharge. Brandee ANDERSON, RN, CM
[2023-06-09 16:41] LABS: Bedside Glucose 180 mg/dL (74-106)
[2023-06-09] MEDS: Acetaminophen 325 MG Tablet 650 MG PO (21:22)
[2023-06-09] MEDS: MELATONIN 3 MG TABLET PO (21:22)
[2023-06-09 21:55] LABS: Bedside Glucose 174 mg/dL (74-106)
[2023-06-10] MEDS: oxyCODONE 5 MG Tablet PO (02:00)
[2023-06-10] MEDS: 0.9% Normal Saline (1000mL) 1,000 ML 150 ML IV ×3 (02:01→15:52)
[2023-06-10 03:05] VITALS: BP 153/98; PULSE 86; RESP 15; TEMP 36.8; O2SAT 94
[2023-06-10 06:00] VITALS: BMI 28.9
[2023-06-10] MEDS: Gabapentin 100 MG Capsule 200 MG PO ×3 (06:12→20:55)
[2023-06-10] MEDS: Insulin Lispro 100 UNIT/ML INSULN.PEN SC (06:12)
[2023-06-10 06:50] LABS: Bedside Glucose 159 mg/dL (74-106)
[2023-06-10 07:22] VITALS: O2SAT 96
[2023-06-10 08:29] VITALS: BP 135/77; PULSE 79; RESP 14; TEMP 36.7; O2SAT 94
[2023-06-10] MEDS: Potassium Chloride Oral Tablet 20 MEQ 40 MEQ PO (08:36)
[2023-06-10] MEDS: Aspirin 81 MG TAB.CHEW PO (08:36)
[2023-06-10] MEDS: Omega-3 Acid Ethyl Esters 1 GM Capsule PO (08:37)
[2023-06-10] MEDS: Methenamine Hippurate 1 GM Tablet PO (08:37)
[2023-06-10] MEDS: Multivitamins,Therapeutic Tablet 1 TABLET PO (08:37)
[2023-06-10] MEDS: Enoxaparin 80 MG/0.8 ML Syringe 70 MG SC (08:37)
[2023-06-10] MEDS: Pantoprazole Sodium 20 MG Tablet PO (08:37)
[2023-06-10] MEDS: DULoxetine Hcl 60 MG Capsule PO (08:37)
[2023-06-10] MEDS: Clobetasol Propionate 0.05% Ointment 1 APPLIC TOPICAL (08:38)
[2023-06-10] MEDS: Ondansetron 4 MG/2 ML Vial IV (09:25)
[2023-06-10] MEDS: 0.9% Saline Lock 10 ML Syringe IV (09:25)
--- NOTE | 2023-06-10 10:00 | NM_ITS ---
CLINICAL: 77-year-old female with history of shortness of breath. VENTILATION-PERFUSION LUNG SCINTIGRAPHY COMPARISON: Plain film chest radiograph 06/08/2023 FINDINGS: The patient was administered 50.4 mCi 99m Tc DTPA aerosol. The aerosol ventilation study demonstrates heterogeneous ventilation in the bilateral lung gonzalez without corresponding radiographic changes visualized on review of plain film chest x-ray dated 06/08/2023. Central clumping of the aerosol is identified in the bilateral hemithorax. Following the intravenous administration of 5.7 mCi of 99m Tc MAA, the pulmonary perfusion study reveals matching non-uniform perfusion in the right and left lungs correlating with the previously defined ventilation pattern. No moderate subsegmental or large segmental ventilation-perfusion mismatches are noted. There are regions of retained normal perfusion visualized. NM/Lung Scan Vent/Perf IMPRESSION: 1. VERY LOW PROBABILITY FOR PULMONARY EMBOLUS (<10%) 99m Tc DTPA aerosol ventilation / 99m Tc MAA pulmonary perfusion imaging examination, according to PIOPED II interpretive criteria with regard given to the presence of > 2 ventilation-perfusion matches without corresponding radiographic changes. (Sotsman et al, Radiology 246: 941, 2008 Sotsman et al, J Nucl Med 49: 1741, 2008). 2. Central clumping of the aerosol may be secondary to obstructive airway mechanics and or clinical tachypnea. Electronically Signed: Ihsan Irvin DO at 12:17 EST ,
--- NOTE | 2023-06-10 10:05 | PCM.PN.HOSP ---
Reason for Visit Reason for Visit: Diagnoses Elevated white blood cell count, unspecified (06/08/23) Hypercalcemia (06/08/23) Hypokalemia (06/08/23) Unspecified atrial fibrillation (06/08/23) Acute embolism and thrombosis of unspecified deep veins of unspecified lower extremity (06/08/23) Other specified disorders of veins (06/08/23) Other specified abnormal findings of blood chemistry (06/08/23) Objective Data Objective Data Vital Signs: Vital Signs Temp Pulse Resp BP Pulse Ox O2 Del Method 98.1 F 79 14 135/77 H 94 Room Air 06/10/23 08:29 06/10/23 08:29 06/10/23 08:29 06/10/23 08:29 06/10/23 08:29 06/10/23 08:29 Oxygen Delivery Method Room Air Weight: 148 lb 2.41 oz Body Mass Index (BMI) 28.9 Intake & Output: Intake and Output for Last 24 Hours 06/08/23 06/09/23 06/10/23 23:59 23:59 23:59 Intake Total 1090 / 1090 3250.67 / 3250.67 1996. Output Total Balance 1090 / 1090 3249.67 / 3249.67 1996. Lab / Micro Data 06/10/23 12:10 06/10/23 12:10 Labs: Laboratory Results - last 24 hr 06/09/23 11:13: POC Glucose 138 H 06/09/23 16:18: POC Glucose 180 H 06/09/23 21:26: POC Glucose 174 H 06/10/23 06:11: POC Glucose 159 H Radiography Diagnostic Testing: Radiology Impression Echocardiogram 06/08/23 20:11 Interpretation Summary Moderately severe global left ventricular systolic dysfunction. The left ventricular ejection fraction is 35 %. Stage 1 diastolic dysfunction. Moderately severe global right ventricular systolic dysfunction. There is mild biatrial dilatation. Mild (1+) mitral valve insufficiency. Moderate (2+) tricuspid valve insufficiency. Right ventricular systolic pressure estimated to be 46 mmHg. Ordering Physician: Linda Carter Referring Physician: Analilia Miramontes Performed By: Fe Nicole RDCS, RVT Physical Exam Narrative Seen and examined. Patient has left leg swelling more than right, slightly better. She had couple falls also about 2 days prior to admission. Denies shortness of breath chest pain or palpitation. Physical exam General: Alert, Oriented x3, Cooperative HEENT: Atraumatic, PERRLA, EOMI, Normocephalic Oral: Oral mucosa moist. No Gingival or Mucosal Lesions/ Ulcerations Neck: Supple, No JVD, Negative Carotid Bruits Chest wall/Lungs: Air entry diminished in bilateral lung bases. No crepitation/rhonchi Cardiovascular: Irregular rhythm, A-fib, HR controlled, Normal S1, Normal S2, No M/G/R Abdomen: Bowel Sounds Present, Soft, Non Tender, Non-Distended : No dysuria. No renal angle tenderness. No suprapubic tenderness. Extremities: Left calf swollen more than right, mild tenderness. Capillary Refill Less than 3 Seconds Skin: No rashes, No breakdown Musculoskeletal: No Tenderness to Palpation of Joints or Extremities. ROM restricted on left knee due to Swelling Neurological: Cranial nerves II-XII grossly intact, DTR 2+/4. No acute focal neurological deficit. Psych/Mental Status: Normal Affect, Appropriate. Assessment & Plan Assessment/Plan (1) Hypercalcemia: (2) Hypokalemia: (3) Atrial fibrillation with RVR: (4) DVT (deep venous thrombosis): PLAN: Plan This 68-year-old female being admitted for 1 week history of left calf pain and swelling. She was found to be in A-fib with RVR with the cardiac monitoring daily. Chronic shortness of breath. No chest pain or pressure. 1. New onset A-fib with RVR, chronic biventricular heart failure, systolic and diastolic heart failure with moderate pulmonary hypertension: Patient is admitted in PCU. Heart rate is controlled but she had Cardizem in the ED. I think patient has new onset A-fib RVR with right sided heart failure due to PE. 2D echo was done which shows EF 35%, moderately severe global LV systolic dysfunction, stage I diastolic dysfunction, moderate-severe global RV systolic dysfunction mild biatrial dilatation, mild MR 2+ TR RVSP 46 mmHg consistent with moderate pulmonary hypertension. -Schedule metoprolol 50 mg p.o. twice daily 3: Patient converted to sinus rhythm. Heart rate in 80s. Continue treatment metoprolol 50 mg twice daily. Patient on anticoagulant. 2. Elevated troponin most likely due to right ventricular strain from DVT and high clinical quality of PE and A-fib RVR consistent with demand ischemia. 3. Left lower extremity pain secondary to extensive DVT with clinical suspicion of pulmonary embolism: Based on the echo finding of right-sided ventricular strain with ventricular dysfunction, elevated troponin in all probability it seems patient had pulmonary embolism. VQ scan ordered. . Heparin drip discontinued and started on enoxaparin 1 mg/kg body weight. Creatinine clearance less than 30 mill per minute. -Venous Doppler showed acute DVT in the left femoral vein popliteal vein and tibioperoneal trunk gastrocnemius vein posterior tibial vein and peroneal vein and soleal vein -Tylenol and oxycodone available for pain -Avoid NSAIDs due to elevated creatinine and anticoagulation 06/09: Continue enoxaparin. VQ scan shows low probability. 4. SARBJIT on CKD stage IIIB, hypercalcemia, hypomagnesemia: -Baseline appears to have been running between 0.9 and 1 with estimated clearance about 32 mill per minute -1.57 on admission -Patient's not on any diuretics -Aggressive IV fluids for hypercalcemia. 1 dose of IV pamidronate 60 mg was given. -Repeat calcium shows improvement from 13.0-10.6. Serum phosphorus 2.9. Ionized calcium 5.8. Albumin 2.4. 06/09 serum calcium level normal 8.9. BUNs/creatinine 16/1.33. Improving. Hypokalemia and hypomagnesemia -P.o. potassium replacement. Hypomagnesemia magnesium 1.5 and 2 g IV magnesium ordered. Repeat potassium is 3.6 low normal 06/09: Hypokalemia has resolved. History of breast cancer -Diagnosed 8 years ago and currently in remission -Has followed previously as an outpatient with Dr. Raya -May need further workup depending on above findings as the etiology for her hypercalcemia as I would be concerned about metastatic disease GERD -Continue home PPI DM-2 -Hold metformin with renal function -SSI -Diabetic diet -Accu-Cheks as ordered -Check hemoglobin A1c Diabetic neuropathy -Continue home gabapentin well but reduce to 200 mg 3 times daily from 600 mg 3 times daily due to renal dysfunction Allergies -Continue home medication Depression -Continue home duloxetine DVT prophylaxis -Heparin drip for DVT diagnosis as noted above CODE STATUS Full code is verified admission Clinical Impression(s) from Imaging Studies Venous Doppler Study 06/08/23 14:26 Interpretation Summary Acute deep vein thrombosis is noted in the left femoral vein, popliteal vein, tibioperoneal trunk vein, gastrocnemius vein, posterior tibial vein, peroneal vein, soleus vein. Chest X-Ray 06/08/23 16:06 IMPRESSION: No acute disease Echocardiogram 06/08/23 20:11 Interpretation Summary Moderately severe global left ventricular systolic dysfunction. The left ventricular ejection fraction is 35 %. Stage 1 diastolic dysfunction. Moderately severe global right ventricular systolic dysfunction. There is mild biatrial dilatation. Mild (1+) mitral valve insufficiency. Moderate (2+) tricuspid valve insufficiency. Right ventricular systolic pressure estimated to be 46 mmHg. Charges/Coding Visit Charges Inpatient E&M: 58024 Subs Hosp L2
[2023-06-10 11:43] LABS: Bedside Glucose 143 mg/dL (74-106)
[2023-06-10 12:27] LABS: Absolute Lymphocyte Count 0.73 X10^3/uL (0.83-4.51); Absolute Neutrophil Count 8.8 X10^3/uL (2.0-7.7); Basophil# 0.07 X10^3/uL; Basophil% 0.7 % (0-1); Eosinophil# 0.08 X10^3/uL; Eosinophils% 0.8 % (0-5); Hematocrit 38.5 % (37-47); Hemoglobin 11.8 g/dL (12.0-15.0); Lymphocyte # 0.73 X10^3/ul (0.83-4.51); Lymphocyte % 7.1 % (19-41); Mean Corp Hgb Conc 30.6 g/dL (32-36); Mean Corpuscular Hgb 27.1 pg (27.0-32.0); Mean Corpuscular Volume 88.5 fL (81-99); Mean Platelet Vol. 10.9 fl (6.2-12.0); Monocyte# 0.54 X10^3/uL; Monocyte% 5.3 % (0-10); NRBC Flagged by Analyzer 0 % (0-5); Neutrophil # 8.79 X10^3/uL (2.7-7.7); Neutrophil % 85.4 % (47-70); Platelet Count 152 K/mm3 (150-450); RBC Distribution Width CV 15.7 % (11.6-14.6); RBC Distribution Width SD 50.4 fl (35.1-43.9); Red Blood Count 4.35 M/mm3 (4.2-5.4); White Blood Count 10.3 K/mm3 (4.4-11.0)
[2023-06-10 13:19] LABS: Anion Gap 10 (5-15); BUN 16 mg/dL (7-18); Calcium,Total 8.9 mg/dL (8.5-10.1); Chloride 107 mmol/L (98-107); Cholesterol 142 mg/dL (200); Creatinine, Serum 1.33 mg/dL (0.55-1.02); EST Glomerular Filtration Rate 41 mL/min (>60); Est Glom Filt Rate - Afr Amer 49 mL/min (>60); Estimated Creatinine Clearance 29.34 ml/min; Glucose 153 mg/dL (74-106); High Density Lipoprotein 42 mg/dL; Potassium 4.2 mmol/L (3.5-5.1); Sodium Level 140 mmol/L (136-145); Triglycerides 127 mg/dL; Very Low Density Lipoprotein 25 mg/dL (5-40)
[2023-06-10 14:11] VITALS: BP 121/71; PULSE 81; RESP 18; TEMP 36.6; O2SAT 92
[2023-06-10] MEDS: Acetaminophen 325 MG Tablet 650 MG PO (15:51)
--- NOTE | 2023-06-10 16:06 | CHAPLAIN ---
Type of Pastoral Visit _x__ Initial Visit ___ Follow-up Visit ___ On-call Visit ___ General Patient Visit ___ Spiritual Assessment ___ Family Conference ___ Bereavement ___ Rapid Response ___ Code Blue ___ Other (describe below) Pastoral Care Referral From _x__ Patient ___ Family ___ Nurse ___ Physician ___ Montessori Preschool Teacher ___ Wharfmaster ___ Other (describe below) Sacrament/Intervention _x__ Active listening ___ Anointing ___ Scientologist ___ Bereavement ___ Communion _x__ Rayna exploration ___ ___ Life review _x__ Prayer ___ Reconciliation ___ Sacrament of Sick _x__ Supportive presence ___ Wedding ___ Other (describe below) Pastoral Comments patient shares her concerns and worries about health and being in the hospital; pt talks about her uatsdin and irrigation teacher and how supportive they are for her; pt has family in the area too; pt welcomes presence and prayer for support
[2023-06-10 17:33] LABS: Bedside Glucose 106 mg/dL (74-106)
[2023-06-10] MEDS: MELATONIN 3 MG TABLET PO (20:55)
[2023-06-10 20:58] VITALS: BP 119/108; PULSE 75
[2023-06-10] MEDS: Metoprolol Tartrate 50 MG Tablet PO (20:58)
[2023-06-10 21:01] VITALS: BP 119/108; PULSE 75; RESP 15; TEMP 36.8; O2SAT 93
[2023-06-10 21:56] LABS: Bedside Glucose 143 mg/dL (74-106)
[2023-06-11 02:52] LABS: Absolute Lymphocyte Count 1.15 X10^3/uL (0.83-4.51); Absolute Neutrophil Count 5.4 X10^3/uL (2.0-7.7); Basophil# 0.04 X10^3/uL; Basophil% 0.5 % (0-1); Eosinophil# 0.16 X10^3/uL; Eosinophils% 2.2 % (0-5); Hematocrit 34.1 % (37-47); Hemoglobin 10.6 g/dL (12.0-15.0); Lymphocyte # 1.15 X10^3/ul (0.83-4.51); Lymphocyte % 15.8 % (19-41); Mean Corp Hgb Conc 31.1 g/dL (32-36); Mean Corpuscular Hgb 27.7 pg (27.0-32.0); Mean Platelet Vol. 11.5 fl (6.2-12.0); Monocyte# 0.48 X10^3/uL; Monocyte% 6.6 % (0-10); NRBC Flagged by Analyzer 0.3 % (0-5); Neutrophil % 73.9 % (47-70); Platelet Count 128 K/mm3 (150-450); RBC Distribution Width CV 15.8 % (11.6-14.6); RBC Distribution Width SD 50.7 fl (35.1-43.9); Red Blood Count 3.83 M/mm3 (4.2-5.4); White Blood Count 7.3 K/mm3 (4.4-11.0)
[2023-06-11 03:21] LABS: Anion Gap 10 (5-15); BUN 18 mg/dL (7-18); BUN/Creat Ratio 14.9 RATIO (10-20); Calcium,Total 8.3 mg/dL (8.5-10.1); Chloride 109 mmol/L (98-107); Creatinine, Serum 1.21 mg/dL (0.55-1.02); EST Glomerular Filtration Rate 46 mL/min (>60); Est Glom Filt Rate - Afr Amer 55 mL/min (>60); Estimated Creatinine Clearance 32.25 ml/min; Glucose 134 mg/dL (74-106); Magnesium 1.3 mg/dL (1.6-2.6); Potassium 3.7 mmol/L (3.5-5.1); Sodium Level 141 mmol/L (136-145)
[2023-06-11 03:50] VITALS: BP 150/101; PULSE 100; RESP 15; TEMP 36.8; O2SAT 93
[2023-06-11] MEDS: Magnesium Sulfate 2 GM in Dextrose 5%-Water (100mL Bag) 100 ML IV (04:16)
[2023-06-11 06:00] VITALS: BMI 29.2
[2023-06-11] MEDS: Gabapentin 100 MG Capsule 200 MG PO (06:06)
[2023-06-11] MEDS: Acetaminophen 325 MG Tablet 650 MG PO (06:06)
[2023-06-11] MEDS: Insulin Lispro 100 UNIT/ML INSULN.PEN SC (06:13)
[2023-06-11 06:36] LABS: Bedside Glucose 158 mg/dL (74-106)
[2023-06-11 07:21] VITALS: O2SAT 96
[2023-06-11 07:35] LABS: Hemoglobin A1c 6.9 % (3.8-5.6)
--- NOTE | 2023-06-11 07:45 | DCINST_ITS ---
Discharge Instructions Diet Discharge Diet: No restrictions Activity Discharge Activity: Return to Normal Activity Weight Bearing Status: Weight bearing as tolerated Dressing / Incision Call your doctor if you observe: Fever of 101 or Higher, Coldness, Increased Pain, Numbness or Tingling, Change in Color, Inability to urinate, Inability to have a bowel movement, Using more than 1 pad per hour, Shortness of breath, Dizziness, Fainting spells, Swelling in the ankles, Chest pain, Prolonged hiccupping, Increased palpitations (irregular heartbeat) and Calf discomfort Follow Up Care When: IN 2 WEEKS Test Results: Test results from this visit will be discussed in further detail at your follow- up appointment, if applicable. Discharge Plan Admission Admit Date/Time: 06/08/23 19:12 Primary Reason for Your Visit: Left leg DVT, RV dilatation Attending Provider: Homer Azevedo Primary Care Provider: Analilia Miramontes Consulting Providers: Linda Carter Discharge Orders/Prescriptions Prescriptions: New Eliquis DVT-PE Treat 30D Start 5 mg (74 tabs) tablets,dose pack 5 mg PO BID Qty: 74 2RF Rx Instructions: 10 mg twice daily for 7 days, starting 06/12/2023 am dose and and then 5 mg daily to continue from 06/19/2019 AM dose. Continued methenamine hippurate 1 gram tablet 1 g PO DAILY betamethasone, augmented 0.05 % ointment 1 applic TOPICAL BID Rx Instructions: APPLY OINTMENT TOPICALLY TO AFFECTED AREAS ON BODY TWICE DAILY FOR 2 WEEKS, THEN TAKE 1 WEEK OFF IN BETWEEN APPLICATIONS RESUMING NEEDED FOR FLARING. duloxetine 60 mg capsule,delayed release(DR/EC) 60 mg PO DAILY gabapentin 300 mg capsule 600 mg PO TID Rx Instructions: TAKE 2 CAPSULES BY MOUTH IN THE MORNING, 2 CAPSULES AT DINNER AND 2 CAPSULES AT BEDTIME DAILY. omeprazole 20 mg capsule,delayed release(DR/EC) 20 mg PO DAILY multivitamin Tablet 1 tab PO DAILY omega-3 fatty acids 1,000 mg capsule 1,000 mg PO DAILY Held metformin 500 mg tablet extended release 24 hr 1,000 mg PO BID Hold Instructions: Hold it for creatinine clearance less than 30 mill per minute turmeric 400 mg capsule 400 mg PO DAILY Hold Instructions: Hold while taking Eliquis Referrals / Follow Up: Aravind Blanca DO [Med Staff - Active Staff] - Within 1 Month (Right ventricular dilatation and systolic dysfunction. Left leg DVT.) Analilia Miramontes DO [Primary Care Provider] - Within 1 Week Marysol Purvis MD [Med Staff - Active Staff] - Within 3 Months (For left leg DVT, idiopathic.) Disposition Disposition (needs filled in before D/C Order can be placed): Home, Self Care
--- NOTE | 2023-06-11 08:05 | DS.PCM_ITS ---
Providers Date of Admission: 06/08/23 Date of Discharge: 06/11/23 Primary Care Physician: Dr. Analilia Miramontes DO Reason For Visit: AFIB WITH RVR Diagnosis Discharge Diagnosis (1) Hypercalcemia: Status: Acute Code(s): E83.52 - Hypercalcemia (2) Hypokalemia: Status: Acute Code(s): E87.6 - Hypokalemia (3) Atrial fibrillation with RVR: Status: Acute Code(s): I48.91 - Unspecified atrial fibrillation (4) DVT (deep venous thrombosis): Status: Acute Code(s): I82.409 - Acute embolism and thrombosis of unspecified deep veins of unspecified lower extremity Plan This 68-year-old female being admitted for 1 week history of left calf pain and swelling. She was found to be in A-fib with RVR with the cardiac monitoring daily. Chronic shortness of breath. No chest pain or pressure. 1. New onset A-fib with RVR, chronic biventricular heart failure, systolic and diastolic heart failure with moderate pulmonary hypertension: Patient is admitted in PCU. Heart rate is controlled but she had Cardizem in the ED. I think patient has new onset A-fib RVR with right sided heart failure due to PE. 2D echo was done which shows EF 35%, moderately severe global LV systolic dysfunction, stage I diastolic dysfunction, moderate-severe global RV systolic dysfunction mild biatrial dilatation, mild MR 2+ TR RVSP 46 mmHg consistent with moderate pulmonary hypertension. -Schedule metoprolol 50 mg p.o. twice daily 06/09: Patient converted to sinus rhythm. Heart rate in 80s. Continue treatment metoprolol 50 mg twice daily. Hypomagnesemia corrected. Prescription for metoprolol succinate 100 mg given. Acute anemia most likely due to anticoagulant: Patient denies any external bleeding. Patient on anticoagulant. Patient hemoglobin dropped to 10.6 from baseline 14 g. Iron workup shows serum iron 26 low, TIBC normal, iron sa turation 9.3% ferritin 65. Prescription for ferrous sulfate and vitamin C given. B12 339, low normal therefore prescription for vitamin B-12 also given. 2. Elevated troponin most likely due to right ventricular strain from DVT and high clinical quality of PE and A-fib RVR consistent with demand ischemia. 3. Left lower extremity pain secondary to extensive DVT with clinical suspicion of pulmonary embolism: Based on the echo finding of right-sided ventricular str ain with ventricular dysfunction, elevated troponin in all probability it seems patient had pulmonary embolism. VQ scan ordered. . Heparin drip discontinued and started on enoxaparin 1 mg/kg body weight. Creatinine clearance less than 30 mill per minute. -Venous Doppler showed acute DVT in the left femoral vein popliteal vein and tibioperoneal trunk gastrocnemius vein posterior tibial vein and peroneal vein and soleal vein -Tylenol and oxycodone available for pain -Avoid NSAIDs due to elevated creatinine and anticoagulation 06/09: Continue enoxaparin. VQ scan shows low probability. 4. SARBJIT on CKD stage IIIB, hypercalcemia, hypomagnesemia: -Baseline appears to have been running between 0.9 and 1 with estimated clearance about 32 mill per minute -1.57 on admission -Patient's not on any diuretics -Aggressive IV fluids for hypercalcemia. 1 dose of IV pamidronate 60 mg was given. -Repeat calcium shows improvement from 13.0-10.6. Serum phosphorus 2.9. Ionized calcium 5.8. Albumin 2.4. 06/09 serum calcium level normal 8.9. BUNs/creatinine 16/1.33. Improving. Hypokalemia and hypomagnesemia -P.o. potassium replacement. Hypomagnesemia magnesium 1.5 and 2 g IV magnesium ordered. Repeat potassium is 3.6 low normal 06/09: Hypokalemia has resolved. History of breast cancer -Diagnosed 8 years ago and currently in remission -Has followed previously as an outpatient with Dr. Raya -May need further workup depending on above findings as the etiology for her hypercalcemia as I would be concerned about metastatic disease GERD -Continue home PPI DM-2 -Hold metformin with renal function -SSI -Diabetic diet -Accu-Cheks as ordered -Check hemoglobin A1c Diabetic neuropathy -Continue home gabapentin well but reduce to 200 mg 3 times daily from 600 mg 3 times daily due to renal dysfunction Allergies -Continue home medication Depression -Continue home duloxetine DVT prophylaxis -Heparin drip for DVT diagnosis as noted above CODE STATUS Full code is verified admission Laboratory Results 06/10/23 12:10: Sodium 140, Potassium 4.2, Chloride 107, Carbon Dioxide 23.0, Anion Gap 10, BUN 16, Creatinine 1.33 H, Estim Creat Clear Calc 29.34, Est GFR (MDRD) Af Amer 49 L, Est GFR (MDRD) Non-Af 41 L, BUN/Creatinine Ratio 12.0, Glucose 153 H, Calcium 8.9, Triglycerides 127, Cholesterol 142, LDL Cholesterol 75, VLDL Cholesterol 25, HDL Cholesterol 42 06/10/23 17:11: POC Glucose 106 06/10/23 21:00: POC Glucose 143 H 06/11/23 02:37: WBC 7.3, RBC 3.83 L, Hgb 10.6 L, Hct 34.1 L, MCV 89.0, MCH 27.7, MCHC 31.1 L, RDW Std Deviation 50.7 H, RDW Coeff of Shazia 15.8 H, Plt Count 128 L, MPV 11.5, Immature Gran % (Auto) 1.000 H, Neut % (Auto) 73.9 H, Lymph % (Auto) 15.8 L, [place] % (Auto) 6.6, Eos % (Auto) 2.2, Baso % (Auto) 0.5, Absolute Neuts (auto) 5.4, Absolute Lymphs (auto) 1.15, Nucleated RBC % 0.3, Sodium 141, Potassium 3.7, Chloride 109 H, Carbon Dioxide 22.0, Anion Gap 10, BUN 18, Creatinine 1.21 H, Estim Creat Clear Calc 32.25, Est GFR (MDRD) Af Amer 55 L, Est GFR (MDRD) Non-Af 46 L, BUN/Creatinine Ratio 14.9, Glucose 134 H, Hemoglobin A1c 6.9 H, Calcium 8.3 L, Magnesium 1.3 L, Iron 26 L, TIBC 280, Iron Saturation 9.3 L, Ferritin 65 06/11/23 02:47: Retic Count 2.03 H, Immature Retic Fraction 30.30 H, Retic Hgb Equivalent 34.0, Vitamin B12 339, Folate 43.00 06/11/23 06:12: POC Glucose 158 H 06/11/23 08:10: Magnesium 2.1 Clinical Impression(s) from Imaging Studies Venous Doppler Study 06/08/23 14:26 Interpretation Summary Acute deep vein thrombosis is noted in the left femoral vein, popliteal vein, tibioperoneal trunk vein, gastrocnemius vein, posterior tibial vein, peroneal vein, soleus vein. Chest X-Ray 06/08/23 16:06 IMPRESSION: No acute disease Echocardiogram 06/08/23 20:11 Interpretation Summary Moderately severe global left ventricular systolic dysfunction. The left ventricular ejection fraction is 35 %. Stage 1 diastolic dysfunction. Moderately severe global right ventricular systolic dysfunction. There is mild biatrial dilatation. Mild (1+) mitral valve insufficiency. Moderate (2+) tricuspid valve insufficiency. Right ventricular systolic pressure estimated to be 46 mmHg. Medications at Discharge Home Medications methenamine hippurate 1 gram tablet 1 g PO DAILY UTI PREVENTATIVE 09/04/20 betamethasone, augmented 0.05 % topical ointment 1 applic topical BID SWELLING/ITCHING 06/08/23 duloxetine 60 mg capsule,delayed release 60 mg PO DAILY DEPRESSION 06/08/23 gabapentin 300 mg capsule 600 mg PO TID NEUROPATHY 06/08/23 metformin 500 mg tablet,extended release 24 hr 1,000 mg PO BID DIABETES 06/08/23 multivitamin 1 tab PO DAILY HEALTH MAINTENANCE 06/08/23 omega-3 fatty acids 1,000 mg capsule 1,000 mg PO DAILY SUPPLEMENT 06/08/23 omeprazole 20 mg capsule,delayed release 20 mg PO DAILY GERD 06/08/23 turmeric 400 mg capsule 400 mg PO DAILY SUPPLEMENT 06/08/23 apixaban 5 mg (74 tabs) tablets in a dose pack (Dextr DVT-PE Treat 30D Start) 5 mg PO BID #74 tabs 06/11/23 ascorbic acid (vitamin C) 500 mg tablet 500 mg PO BID 1 month #60 tabs 06/11/23 ferrous sulfate 325 mg (65 mg iron) tablet (FeroSul) 325 mg PO DAILY #30 tabs 06/11/23 mecobalamin (vitamin B12) 1,000 mcg chewable tablet (B12 Active) 1,000 mcg PO DAILY 1 month #30 tabs 06/11/23 metoprolol succinate 100 mg tablet,extended release 24 hr 100 mg PO DAILY 1 month #30 tabs 06/11/23 Physical Exam Narrative Seen and examined. Patient has left leg swelling more than right, slightly better. She had couple falls also about 2 days prior to admission. Denies shortness of breath chest pain or palpitation. Physical exam General: Alert, Oriented x3, Cooperative HEENT: Atraumatic, PERRLA, EOMI, Normocephalic Oral: Oral mucosa moist. No Gingival or Mucosal Lesions/ Ulcerations Neck: Supple, No JVD, Negative Carotid Bruits Chest wall/Lungs: Air entry diminished in bilateral lung bases. No crepitation/rhonchi. No hypoxia Cardiovascular: Irregular rhythm, A-fib, HR controlled, Normal S1, Normal S2, No M/G/R Abdomen: Bowel Sounds Present, Soft, Non Tender, Non-Distended : No dysuria. No renal angle tenderness. No suprapubic tenderness. Extremities: Left calf swollen more than right, mild tenderness. Capillary Refill Less than 3 Seconds Skin: No rashes, No breakdown Musculoskeletal: No Tenderness to Palpation of Joints or Extremities. ROM restricted on left knee due to Swelling Neurological: Cranial nerves II-XII grossly intact, DTR 2+/4. No acute focal neurological deficit. Psych/Mental Status: Normal Affect, Appropriate. Weight / BMI Weight Weight: 149 lb 7.574 oz Body Mass Index (BMI) 29.2 ABG / Lab / Microbiology Data 06/11/23 02:37 06/11/23 02:37 Laboratory: Laboratory Results - last 24 hr 06/10/23 11:18: POC Glucose 143 H 06/10/23 12:10: WBC 10.3, RBC 4.35, Hgb 11.8 L, Hct 38.5, MCV 88.5, MCH 27.1, MCHC 30.6 L, RDW Std Deviation 50.4 H, RDW Coeff of Shazia 15.7 H, Plt Count 152, MPV 10.9, Immature Gran % (Auto) 0.700, Neut % (Auto) 85.4 H, Lymph % (Auto) 7.1 L, [place] % (Auto) 5.3, Eos % (Auto) 0.8, Baso % (Auto) 0.7, Absolute Neuts (auto) 8.8 H, Absolute Lymphs (auto) 0.73 L, Nucleated RBC % 0, Sodium 140, Potassium 4.2, Chloride 107, Carbon Dioxide 23.0, Anion Gap 10, BUN 16, Creatinine 1.33 H, Estim Creat Clear Calc 29.34, Est GFR (MDRD) Af Amer 49 L, Est GFR (MDRD) Non-Af 41 L, BUN/Creatinine Ratio 12.0, Glucose 153 H, Calcium 8.9, Triglycerides 127, Cholesterol 142, LDL Cholesterol 75, VLDL Cholesterol 25, HDL Cholesterol 42 06/10/23 17:11: POC Glucose 106 06/10/23 21:00: POC Glucose 143 H 06/11/23 02:37: WBC 7.3, RBC 3.83 L, Hgb 10.6 L, Hct 34.1 L, MCV 89.0, MCH 27.7, MCHC 31.1 L, RDW Std Deviation 50.7 H, RDW Coeff of Shazia 15.8 H, Plt Count 128 L, MPV 11.5, Immature Gran % (Auto) 1.000 H, Neut % (Auto) 73.9 H, Lymph % (Auto) 15.8 L, [place] % (Auto) 6.6, Eos % (Auto) 2.2, Baso % (Auto) 0.5, Absolute Neuts (auto) 5.4, Absolute Lymphs (auto) 1.15, Nucleated RBC % 0.3, Sodium 141, Potassium 3.7, Chloride 109 H, Carbon Dioxide 22.0, Anion Gap 10, BUN 18, Creatinine 1.21 H, Estim Creat Clear Calc 32.25, Est GFR (MDRD) Af Amer 55 L, Est GFR (MDRD) Non-Af 46 L, BUN/Creatinine Ratio 14.9, Glucose 134 H, Hemoglobin A1c 6.9 H, Calcium 8.3 L, Magnesium 1.3 L 06/11/23 06:12: POC Glucose 158 H Radiography Diagnostic Testing: Radiology Impression Lung Scan-VQ NM 06/10/23 10:00 IMPRESSION: 1. VERY LOW PROBABILITY FOR PULMONARY EMBOLUS (<10%) 99m Tc DTPA aerosol ventilation / 99m Tc MAA pulmonary perfusion imaging examination, according to PIOPED II interpretive criteria with regard given to the presence of > 2 ventilation-perfusion matches without corresponding radiographic changes. (Sotsman et al, Radiology 246: 941, 2008 Soparish et al, J Nucl Med 49: 1741, 2008). 2. Central clumping of the aerosol may be secondary to obstructive airway mechanics and or clinical tachypnea. Electronically Signed: Ihsan Irvin DO at 12:17 EST , D/C Instructions Discharge Diet: No restrictions Weight Bearing Status: Weight bearing as tolerated Call your doctor if you observe: Fever of 101 or Higher, Coldness, Increased Pain, Numbness or Tingling, Change in Color, Inability to urinate, Inability to have a bowel movement, Using more than 1 pad per hour, Shortness of breath, Dizziness, Fainting spells, Swelling in the ankles, Chest pain, Prolonged hiccupping, Increased palpitations (irregular heartbeat) and Calf discomfort When: IN 2 WEEKS Meaningful Use Info Meaningful Use Diagnoses (Choose all that apply): VTE VTE Anticoag overlap given w/in hospital stay or rx'd at dc?: Yes Pt receive overlap for 5 days?: Yes Discharge Plan Admission Admit Date/Time: 06/08/23 19:12 Primary Reason for Your Visit: Left leg DVT, RV dilatation Attending Provider: Homer Azevedo Primary Care Provider: Analilia Miramontes Consulting Providers: Linda Carter Instructions Additional Instructions / Restrictions: Eliquis 10 mg twice daily starting on 06/12/2023; and then change to Eliquis 5 mg twice daily on 06/19/2023. This was communicated to patient's son on phone. Discharge Orders/Prescriptions Prescriptions: New Eliquis DVT-PE Treat 30D Start 5 mg (74 tabs) tablets,dose pack 5 mg PO BID Qty: 74 2RF Rx Instructions: 10 mg twice daily for 7 days, starting 06/12/2023 am dose and and then 5 mg daily to continue from 06/19/2019 AM dose. metoprolol succinate 100 mg tablet extended release 24 hr 100 mg PO DAILY 30 Days Qty: 30 2RF Rx Instructions: Hold for heart less than 50 or systolic blood pressure less than 110 mmHg. ferrous sulfate [FeroSul] 325 mg (65 mg iron) tablet 325 mg PO DAILY Qty: 30 2RF ascorbic acid (vitamin C) 500 mg tablet 500 mg PO BID 30 Days Qty: 60 2RF mecobalamin (vitamin B12) [B12 Active] 1,000 mcg tablet,chewable 1,000 mcg PO DAILY 30 Days Qty: 30 2RF Continued methenamine hippurate 1 gram tablet 1 g PO DAILY betamethasone, augmented 0.05 % ointment 1 applic TOPICAL BID Rx Instructions: APPLY OINTMENT TOPICALLY TO AFFECTED AREAS ON BODY TWICE DAILY FOR 2 WEEKS, THEN TAKE 1 WEEK OFF IN BETWEEN APPLICATIONS RESUMING NEEDED FOR FLARING. duloxetine 60 mg capsule,delayed release(DR/EC) 60 mg PO DAILY gabapentin 300 mg capsule 600 mg PO TID Rx Instructions: TAKE 2 CAPSULES BY MOUTH IN THE MORNING, 2 CAPSULES AT DINNER AND 2 CAPSULES AT BEDTIME DAILY. omeprazole 20 mg capsule,delayed release(DR/EC) 20 mg PO DAILY multivitamin Tablet 1 tab PO DAILY omega-3 fatty acids 1,000 mg capsule 1,000 mg PO DAILY Held metformin 500 mg tablet extended release 24 hr 1,000 mg PO BID Hold Instructions: Hold it for creatinine clearance less than 30 mill per minute turmeric 400 mg capsule 400 mg PO DAILY Hold Instructions: Hold while taking Eliquis Referrals / Follow Up: Aravind Blanca DO [Med Staff - Active Staff] - 07/27/23 11:15 am (Right v entricular dilatation and systolic dysfunction. Left leg DVT.) Analilia Miramontes DO [Primary Care Provider] - 06/18/23 12:45 pm Marysol Purvis MD [Med Staff - Active Staff] - 09/02/23 2:00 pm (For left leg DVT, idiopathic.) Parish Rich MD [Med Staff - Active Staff] - Within 1 Month (For new onset A- fib with RVR) Disposition Disposition (needs filled in before D/C Order can be placed): Home, Self Care Charges/Coding Visit Charges Inpatient E&M: 10341 Disch Hosp >30min
[2023-06-11] MEDS: 0.9% Saline Lock 10 ML Syringe IV (08:08)
[2023-06-11 08:21] LABS: Ferritin 65 ng/mL (8-252); Iron 26 ug/dL (50-170); Iron Binding Capacity,Total 280 ug/dL (250-450); PERCENT IRON SATURATION 9.3 % (15.0-55.0)
[2023-06-11 08:53] LABS: Magnesium 2.1 mg/dL (1.6-2.6)
[2023-06-11 09:00] VITALS: BP 152/74; PULSE 67; RESP 18; TEMP 36.6; O2SAT 97
[2023-06-11] MEDS: Methenamine Hippurate 1 GM Tablet PO (09:03)
[2023-06-11] MEDS: Multivitamins,Therapeutic Tablet 1 TABLET PO (09:03)
[2023-06-11] MEDS: Potassium Chloride Oral Tablet 20 MEQ 40 MEQ PO (09:03)
[2023-06-11 09:04] VITALS: BP 152/74; PULSE 67
[2023-06-11] MEDS: Omega-3 Acid Ethyl Esters 1 GM Capsule PO (09:04)
[2023-06-11] MEDS: Metoprolol Tartrate 50 MG Tablet PO (09:04)
[2023-06-11] MEDS: DULoxetine Hcl 60 MG Capsule PO (09:04)
[2023-06-11] MEDS: Enoxaparin 80 MG/0.8 ML Syringe 70 MG SC (09:05)
[2023-06-11] MEDS: Pantoprazole Sodium 20 MG Tablet PO (09:05)
[2023-06-11] MEDS: Clobetasol Propionate 0.05% Ointment 1 APPLIC TOPICAL (09:05)
--- NOTE | 2023-06-11 09:32 | CASEMGMT ---
Pt DC order placed. This ADITYA WHITE called [facility] regarding pt Eliquis Rx. Pharmacy states the Rx is 44$ after insurance. Therapy saw the pt this morning and stated that the pt will not need anything set up going home. ADITYA WHITE to pt room at this time. Pt updated on the cost of the Rx. Pt states that she is OK with this. ADITYA WHITE also updated the pt on the 30 day free trial card and the pt states that she would like to utilize this. Pt is aware this can only be used once. 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 Pt states that she wants to DC home and feels safe doing so today. Pt denies the need for HHC or OP therapy. Pt states that she would like a walker. Rx signed by Dr. Azevedo. A verbal list of local in-network DME companies provided to the pt and the pt chose [employer] for the DME. Referral sent to [facility] via [facility] at this time for pt walker.
[2023-06-11 09:47] LABS: Vitamin B12 339 pg/mL (211-911)
[2023-06-11 10:05] LABS: Platelet Count 137 K/mm3 (150-450); Reticulocyte Count 2.03 % (0.5-1.5)
--- NOTE | 2023-06-11 10:36 | CASEMGMT ---
Social Work As per admitting RN, pt does not have LW/POA, was given additional information. JOS Leonard
[2023-06-11 10:40] VITALS: BP 152/74; PULSE 67; RESP 18; TEMP 36.6; O2SAT 97
--- NOTE | 2023-06-11 11:00 | PHA.DC.MC.R ---
Pharmacy [facility] has performed discharge medication reconciliation and counseling for this patient. The patient's discharge medication list was reviewed for discrepancies and discrepancies were resolved. The patient was counseled on the following discharge medications and changes in medications for homegoing were reviewed. The Reason for Use, instructions for use, and potential side effects were reviewed for all new medications. The patient's questions regarding all of their medications were answered. 1. Apixaban 10 mg PO BID x 7 days, then 5 mg PO BID thereafter The patient was able to verbally demonstrate an understanding of their discharge medications. Medications at Discharge Home Medications methenamine hippurate 1 gram tablet 1 g PO DAILY UTI PREVENTATIVE 09/04/20 betamethasone, augmented 0.05 % topical ointment 1 applic topical BID SWELLING/ITCHING 06/08/23 duloxetine 60 mg capsule,delayed release 60 mg PO DAILY DEPRESSION 06/08/23 gabapentin 300 mg capsule 600 mg PO TID NEUROPATHY 06/08/23 metformin 500 mg tablet,extended release 24 hr 1,000 mg PO BID DIABETES 06/08/23 multivitamin 1 tab PO DAILY HEALTH MAINTENANCE 06/08/23 omega-3 fatty acids 1,000 mg capsule 1,000 mg PO DAILY SUPPLEMENT 06/08/23 omeprazole 20 mg capsule,delayed release 20 mg PO DAILY GERD 06/08/23 turmeric 400 mg capsule 400 mg PO DAILY SUPPLEMENT 06/08/23 apixaban 5 mg (74 tabs) tablets in a dose pack (Eliquis DVT-PE Treat 30D Start) 5 mg PO BID #74 tabs 06/11/23
--- NOTE | 2023-06-11 11:07 | CASEMGMT ---
SW met with patient as she was interested in completing a Healthcare Power of Spent [employer] (HCPOA). SW assisted patient in completing HCPOA. Copies were made and placed in patient's chart along with original. A copy was also placed in patient's chart. Dary NAVARRO
== END 2023-06-11 11:59 | disposition home or self-care (01) | DRG 308 ==
LOC: ED 17:03 → PCU 18:10
PROVIDERS: Family Medicine; Admitting Provider Internal Medicine; Emergency Provider Emergency Medicine; PCP Internal Medicine; Visit Provider Internal Medicine
DX: I48.91 Unspecified atrial fibrillation (principal); I26.99 Other pulmonary embolism without acute cor pulmonale; D68.32 Hemorrhagic disorder due to extrinsic circulating anticoagulants; I13.0 Hypertensive heart and chronic kidney disease with heart failure and stage 1 through stage 4 chronic kidney disease, or unspecified chronic kidney disease; I50.42 Chronic combined systolic (congestive) and diastolic (congestive) heart failure; N17.9 Acute kidney failure, unspecified; I82.432 Acute embolism and thrombosis of left popliteal vein; I82.452 Acute embolism and thrombosis of left peroneal vein; I82.442 Acute embolism and thrombosis of left tibial vein; I24.89 Other forms of acute ischemic heart disease; E11.40 Type 2 diabetes mellitus with diabetic neuropathy, unspecified; N18.32 Chronic kidney disease, stage 3b; I27.20 Pulmonary hypertension, unspecified; I50.82 Biventricular heart failure; E11.22 Type 2 diabetes mellitus with diabetic chronic kidney disease; I82.462 Acute embolism and thrombosis of left calf muscular vein; I34.0 Nonrheumatic mitral (valve) insufficiency; K21.9 Gastro-esophageal reflux disease without esophagitis; E83.52 Hypercalcemia; E87.6 Hypokalemia; E83.42 Hypomagnesemia; T45.515A Adverse effect of anticoagulants, initial encounter; R29.6 Repeated falls; Z79.84 Long term (current) use of oral hypoglycemic drugs; Z79.899 Other long term (current) drug therapy; Z85.3 Personal history of malignant neoplasm of breast; Z86.16 Personal history of COVID-19
CPT/HCPCS: 36415; 71045; 78582; 80048; 80053; 80061; 82306; 82330; 82607; 82728; 82746; 82962; 83036; 83540; 83550; 83735; 83880; 83970; 84100; 84443; 84484; 85025; 85045; 85610; 85730; 93005; 93306; 93971; 94668; 97110; 97162; 97165; 97530; 97535; 99252; 99285; A9540; A9567; J2430; J7030; J7040; Q9957; A4216; C8929; G0463; J2405

== ENCOUNTER → 2023-06-25 | Outpatient (CLI) | payer MEDICARE, SELFPAY ==
--- NOTE | 2023-06-25 15:47 | CT_ITS ---
We are attempting to reach an attending provider to discuss findings. An addendum with communication details will be sent when the communication is complete. STUDY: CTA CHEST REASON FOR EXAM: Female, 77 years old. acute deep vein thrombosis RADIATION DOSAGE (If Supplied By Facility): CTDIvol = ( 6.47 ) mGy, DLP = ( 185.99 ) mGycm TECHNIQUE: The examination was performed with the intravenous administration of IV 100mL Isovue-300. Post-processing of the angiographic images was performed, with multiplanar reformation and 3D reconstruction. Individualized dose optimization techniques were used for this CT. COMPARISON: None. FINDINGS: Nonocclusive filling defects within the bilateral main, lobar, and segmental branches no evidence of septal shift. Normal thoracic aorta and visualized great vessels. There is no demonstrated aortic dissection. Calcific coronary artery disease. Normal mediastinum. Normal hilar regions. Normal visualized trachea and bronchi. The lungs are well expanded. Normal pulmonary parenchyma. Normal pleura. Normal chest wall structures. Kyphosis. Normal visualized upper abdomen. CT/CTA Chest W/WO Contrast IMPRESSION: Multiple bilateral pulmonary emboli. No evidence of right ventricular strain. Electronically Signed: Teofilo Olivares MD at 16:48 EDT ,
== END | disposition home or self-care (01) ==
PROVIDERS: PCP Internal Medicine; Referring Provider Internal Medicine; Visit Provider Internal Medicine
DX: I82.409 Acute embolism and thrombosis of unspecified deep veins of unspecified lower extremity (principal)
CPT/HCPCS: 71275; Q9967; A4216

== ENCOUNTER → 2023-08-23 | Outpatient (CLI) | payer MEDICARE, SELFPAY ==
--- NOTE | 2023-08-23 10:13 | ECHOD_ITS ---
Reason For Study: SEPSIS Procedure This was a 2D Doppler, Color Flow transthoracic echocardiogram. The study was technically difficult. Exam performed in department. Left Ventricle Normal LV size. The estimated ejection fraction is 60 %. Unable to assess diastolic dysfunction. No regional wall motion abnormalities noted. Right Ventricle Normal RV size. Normal systolic function. Atria Normal left atrium. Normal right atrium. No doppler evidence for ASD. Mitral Valve There is no mitral valve stenosis. No mitral valve insufficiency. Tricuspid Valve There is no tricuspid stenosis. Trivial tricuspid valve insufficiency. Unable to estimate RV systolic pressure due to insufficient tricuspid regurgitant envelope. Aortic Valve Trisinus/trileaflet aortic valve. There is no aortic stenosis. No aortic valve insufficiency. Pulmonic Valve There is no pulmonic valvular stenosis. No pulmonic valve insufficiency. Great Vessels Normal aortic root. Pericardium/Pleural No pericardial effusion. MMode/2D Measurements & Calculations LVIDd: 4.4 cm IVSd: 1.2 cm Ao root diam: 3.4 cm LVIDs: 3.0 cm LVPWd: 1.2 cm RVDd: 3.0 cm FS: 32.3 % LAV(MOD-bp): 31.6 ml LVAd ap4: 21.6 cm2 SV(MOD-sp4): 30.3 ml LAV(MOD-bp) Indexed: 20.0 ml/m2 LVLd ap4: 7.2 cm LAV(MOD-sp2): 33.0 ml EDV(MOD-sp4): 53.7 ml LAV(MOD-sp4): 29.9 ml EDV(sp4-el): 55.2 ml LVAs ap4: 13.2 cm2 LVLs ap4: 6.2 cm ESV(MOD-sp4): 23.4 ml ESV(sp4-el): 23.8 ml EF(MOD-sp4): 56.5 % EF(sp4-el): 57.0 % SV(sp4-el): 31.5 ml LA A4 area: 13.4 cm2 LA dimension(2D): 3.2 cm RA A4 area: 12.4 cm2 TAPSE: 1.5 cm Doppler Measurements & Calculations MV E max roselia: 76.6 cm/sec Ao V2 max: 125.0 cm/sec LV V1 max: 109.0 cm/sec Ao max P.4 mmHg LV V1 max P.9 mmHg PA V2 max: 98.2 cm/sec TR max roselia: 261.2 cm/sec TR max P.3 mmHg ECHO/Echo Complete Interpretation Summary The estimated ejection fraction is 60 %. Unable to assess diastolic dysfunction. Ordering Physician: Aravind Blanca Referring Physician: AJITH PALACIOS Performed By: Alice De La O RDCS
== END | disposition home or self-care (01) ==
PROVIDERS: PCP Internal Medicine; Referring Provider Internal Medicine Critical Care Medicine; Visit Provider Internal Medicine Critical Care Medicine
DX: A41.9 Sepsis, unspecified organism (principal)
CPT/HCPCS: 93306

== ENCOUNTER → 2023-09-03 | Outpatient (CLI) | payer MEDICARE, SELFPAY ==
--- NOTE | 2023-09-03 06:56 | EKG12_ITS ---
Test Reason : AFIB Blood Pressure : / mmHG Vent. Rate : 097 BPM Atrial Rate : 097 BPM P-R Int : 164 ms QRS Dur : 080 ms QT Int : 350 ms P-R-T Axes : 066 -14 080 degrees QTc Int : 444 ms Sinus rhythm with Premature atrial complexes Otherwise normal ECG Confirmed by YESY JOHNSTON, LATOSHA ([id number]), technical editor TAYO PARNELL ([id number]) on 09/06/2023 7:02:55 AM Referred By: Marysol Purvis Confirmed By:MYNOR HAYWARD MD
== END | disposition home or self-care (01) ==
LOC: PSN 06:56
PROVIDERS: PCP Internal Medicine; Referring Provider Internal Medicine Hematology & Oncology; Visit Provider Internal Medicine Hematology & Oncology
DX: I48.91 Unspecified atrial fibrillation (principal)
CPT/HCPCS: 93005

== ENCOUNTER → 2023-10-11 | Outpatient (CLI) | payer MEDICARE, SELFPAY | END | disposition home or self-care (01) | LOC: PSN 11:52 | PROVIDERS: PCP Internal Medicine; Referring Provider Internal Medicine; Visit Provider Internal Medicine | DX: I48.91 Unspecified atrial fibrillation (principal) | CPT/HCPCS: 93225; 93226 ==

== ENCOUNTER → 2023-11-17 | Outpatient (CLI) | payer MEDICARE, SELFPAY ==
--- NOTE | 2023-11-17 11:42 | STRESSREP ---
Stress Test Report Date: 11/17/2023 Procedure: Pharmacologic stress nuclear imaging study Indications: Arrhythmia Consent: Per the patient Procedure: The patient underwent pharmacologic (Regadenoson 0.4mg ) evaluation with a peak heart rate of 129 beats per minute (91%predicted maximal heart rate) and a peak blood pressure of 142/74 mmHg. The baseline ECG demonstrated sinus rhythm with frequent PACs. The peak pharmacologic ECG demonstrated no ischemic changes. Frequent PACs noted at baseline. There was no complaint of chest discomfort during pharmacologic infusion or recovery. The patient was injected with 11.7 millicuries of technetium 99m Cardiolite and subsequently rest SPECT Cardiolite nuclear imaging was obtained in the horizontal long, vertical long, and short axis views. The patient underwent pharmacologic (Regadenoson) evaluation. The patient was injected with 34.4 millicuries of technetium 99m Cardiolite and subsequently stress SPECT Cardiolite nuclear imaging was obtained in the horizontal long, vertical long, and short axis views. A gated Cardiolite study at peak stress was obtained. The examination was stopped secondary to completion of protocol. Rest and stress SPECT Cardiolite nuclear imaging status post realignment, normalization, and attenuation correction demonstrate no fixed or reversible perfusion defects. There is end systolic thickening and brightening. The gated Cardiolite study demonstrates myocardial thickening and inward wall motion. The reported LVEF is 60%. Impression: 1. Pharmacologic (Regadenoson) evaluation 2. Peak pharmacologic ECG with no ischemic changes. 3. Frequent PACs noted. 5. Rest and stress SPECT Cardiolite nuclear imaging demonstrate relative uniform tracer uptake and myocardial perfusion appearing within normal limits. 6. The gated Cardiolite study reports an LVEF of 60%. This note was generated with [employer]-B[employer]ation software. It may contain incorrect words, spelling, and punctuation that were not noted in checking the note before signing.
== END | disposition home or self-care (01) ==
LOC: CVS 06:55
PROVIDERS: PCP Internal Medicine; Referring Provider Internal Medicine; Visit Provider Internal Medicine
DX: R94.31 Abnormal electrocardiogram [ECG] [EKG] (principal); I48.91 Unspecified atrial fibrillation; R06.09 Other forms of dyspnea
CPT/HCPCS: 78452; 93017; A9500; A4216; J2785

== ENCOUNTER 2024-02-02 11:49 | Emergency (ER) | payer MEDICARE, SELFPAY ==
[2024-02-02 11:51] VITALS: BP 164/135; PULSE 91; RESP 18; TEMP 37; O2SAT 99; BMI 26.5
--- NOTE | 2024-02-02 14:01 | CT_ITS ---
EXAM: CT HEAD WITHOUT INTRAVENOUS CONTRAST CLINICAL INDICATION: Right-sided headache x2 months. TECHNIQUE: Multiple axial images were obtained of the head without intravenous contrast. This CT exam was performed using one or more of the following dose reduction techniques: automated exposure control, adjustment of the mA and/or kV according to patient size, and/or use of iterative reconstruction technique. RADIATION DOSE: CTDIvol = 44.99 mGy, DLP = 796.11 mGy-cm COMPARISON: CT head without contrast 03/04/2023. FINDINGS: BRAIN AND EXTRA-AXIAL SPACES: Unremarkable. No intra- or extra-axial hemorrhage. No evidence of acute infarct. No intracranial mass or mass effect. There is preservation of the putnam/white matter interface. Posterior fossa structures are unremarkable. Ventricles are appropriate for age. No hydrocephalus. Basal cisterns are patent. BONES/JOINTS: Unremarkable. No discrete lytic or blastic abnormalities. SINUSES: Unremarkable as visualized. Clear. MASTOID AIR CELLS: Unremarkable. Clear. ORBITS: Visualized globes, extraocular muscles, optic nerves and retrobulbar fat appear unremarkable. CT/Brain/Head without Contrast IMPRESSION: Negative head/brain CT without intravenous contrast and unchanged when compared to 03/04/2023. Electronically Signed: Celestino Houston MD at 14:47 EDT ,
--- NOTE | 2024-02-02 14:02 | EX.ED.VIS.HA ---
HPI History of Present Illness Chief Complaint: Headache Informant: patient Onset/Context/Timing Onset: Month(s) Context: Gradual Timing: Continuous Quality -Headache: Positive for Dull Location: Right side of head Worsened by: Nothing Relieved by: Pressure Associated Symptoms/Injury Associated Symptoms: Positive for Sinus Pressure (Right maxillary); Negative for Fever, Nausea, Vomiting, Sore Throat, Numbness, Tingling, Preceding Aura, Visual Changes, Blurred Vision, Photophobia or Visual Loss Injury - NIX: Negative for Direct Trauma Narrative Narrative: Patient presents with headache that has been constant for the past 2 months. Patient states it is gradually gotten worse over the past couple days. Patient states it is mainly over the right side of her head. Patient states it is better when she applies pressure to the right side of her head. Patient denies any nausea or vomiting. Patient admits to some right maxillary sinus pressure. Patient denies any visual changes. Patient denies any photophobia. Patient denies any paresthesias or weakness. Patient denies any trauma or injury. [facility] Medical History Pulmonary hypertension Chronic kidney disease (CKD) Memory impairment Hypertension Paroxysmal SVT (supraventricular tachycardia) Pulmonary emboli Invasive ductal carcinoma of breast DVT (deep venous thrombosis) Atrial fibrillation Neuropathy COVID-19 Encounter for screening for COVID-19 Breast CA GERD (gastroesophageal reflux disease) Diabetes Home Medications ?Medication ?Instructions ?Recorded ?Last Taken ?Type betamethasone, augmented 0.05 % 1 applic topical BID 06/08/23 06/06/23 History topical ointment SWELLING/ITCHING duloxetine 60 mg capsule,delayed 60 mg PO DAILY DEPRESSION 06/08/23 06/06/23 History release gabapentin 300 mg capsule 600 mg PO TID NEUROPATHY 06/08/23 06/08/23 History metformin 500 mg tablet,extended 1,000 mg PO BID DIABETES 06/08/23 06/06/23 History release 24 hr multivitamin 1 tab PO DAILY HEALTH MAINTENANCE 06/08/23 06/06/23 History omega-3 fatty acids 1,000 mg 1,000 mg PO DAILY SUPPLEMENT 06/08/23 06/06/23 History capsule omeprazole 20 mg capsule,delayed 20 mg PO DAILY GERD 06/08/23 06/06/23 History release ascorbic acid (vitamin C) 500 mg 500 mg PO BID 1 month #60 tabs 06/11/23 Unknown Rx tablet dapagliflozin propanediol 10 mg 10 mg PO DAILY 11/09/23 Unknown History tablet (Farxiga) finerenone 10 mg tablet (Kerendia) 10 mg PO DAILY 11/09/23 Unknown History apixaban 5 mg tablet (Eliquis) 5 mg PO BID 01/11/24 Unknown History vitamin [id number] B1 1,000 ml IM MONTHLY 01/11/24 Unknown History mcg-100 mg/mL injection solution Allergy/AdvReac Type Severity Reaction Status Date / Time morphine Allergy Rash Verified 02/02/24 11:50 nitrofurantoin Allergy Itching Verified 02/02/24 11:50 Family History Brother Cancer Mother Diabetes Surgical History History of surgery History of repair of hiatal hernia H/O mastectomy History of appendectomy History of cholecystectomy Social History household members: family housing: house current occupational status: retired Smoking Status: Never smoker second hand exposure: Yes alcohol intake: never substance use type: does not use ROS ROS ED Constitutional Constitutional ED: Denies chills or fever(s) Eyes Eyes: Denies blurry vision or change in vision ENT ENT ED: Denies rhinorrhea or sore throat Cardiovascular Cardiovascular: Denies chest pain or palpitations Respiratory/Chest Respiratory/Chest: Denies cough or dyspnea Gastrointestinal Gastrointestinal: Denies nausea or vomiting Genitourinary Genitourinary ED: Denies dysuria or hematuria Musculoskeletal Musculoskeletal: Reports neck pain; Denies back pain Integumentary Reports rash; Denies abscess Neurologic Neurologic: Reports headache(s); Denies weakness Allergic/Immunologic Allergic/Immunologic ED: Denies mouth swelling or urticaria EXAM Physical Exam Const Vital Signs: 02/02/24 11:51 02/02/24 15:00 02/02/24 16:59 Temperature 98.6 F Temperature Source Oral Pulse Rate 91 78 Respiratory Rate 18 17 Blood Pressure 164/135 H 126/79 H 131/78 H Blood Pressure Mean 144 94 95 Pulse Ox 99 Oxygen Delivery Method Room Air Positive well nourished and well developed General Appearance ED: well developed and NAD HEENT Reports normocephalic and moist mucous membranes HEENT Narrative: There is mild tenderness and edema over the right temporal area. There is no definite tenderness over the right temporal artery. There is no tenderness of the left temporal artery. Eyes PERRL and EOMs intact bilaterally Neck supple, no meningeal signs and no JVD Resp normal respiratory effort and clear to auscultation bilaterally Cardio regular rate and regular rhythm Neuro oriented x3, CN's II-XII intact bilaterally and no sensory deficits noted Linneus Coma Scale: document GCS findings Spontaneous Obeys Commands Oriented 15 Sensorium / Orientation: awake and alert Speech: speech normal Motor Exam: strength 5/5 throughout Psych mental status grossly normal MDM MDM MDM Narrative Medical decision making narrative: Differential diagnosis includes migraine headache, sinusitis, temporal arteritis, and tension headache. CT scan of the brain will be obtained to assess for intracranial bleeding and sinusitis. CBC will be obtained to assess for leukocytosis and anemia. Basic metabolic profile will be obtained to assess for electrolyte abnormality and renal function. Sed rate will be obtained to assess for acute phase reactant. Lab Data Attestation: I reviewed the patient's lab results. Lab results narrative: CBC was reviewed. Hemoglobin was slightly elevated at 16.8 and hematocrit 53.5. The remainder was within normal limits. Basic metabolic profile was reviewed and was essentially within normal limits. Sed rate was reviewed and was normal at 10. Labs: Laboratory Results - last 24 hr 02/02/24 02/02/24 02/02/24 14:20 14:20 16:20 WBC Cancelled 7.4 Corrected WBC Cancelled RBC Cancelled 6.08 H Hgb Cancelled 16.8 H Hct Cancelled 53.5 H MCV Cancelled 88.0 MCH Cancelled 27.6 MCHC Cancelled 31.4 L RDW Std Deviation Cancelled 48.1 H RDW Coeff of Shazia Cancelled 15.3 H Plt Count Cancelled 160 MPV Cancelled 11.7 Immature Gran % (Auto) Cancelled 0.400 Neut % (Auto) Cancelled 70.0 Lymph % (Auto) Cancelled 20.8 [place] % (Auto) Cancelled 5.0 Eos % (Auto) Cancelled 3.0 Baso % (Auto) Cancelled 0.8 Absolute Neuts (auto) Cancelled 5.2 Absolute Lymphs (auto) Cancelled 1.54 Total Counted Cancelled Neutrophils % (Manual) Cancelled Band Neutrophils % Cancelled Lymphocytes % (Manual) Cancelled Monocytes % (Manual) Cancelled Eosinophils % (Manual) Cancelled Basophils % (Manual) Cancelled Metamyelocytes % Cancelled Myelocytes % Cancelled Promyelocytes % Cancelled Blast Cells % Cancelled Plasma Cell % (Manual) Cancelled Other Cells % Cancelled Nucleated RBC % Cancelled 0 Nucleated RBCs/100 WBC Cancelled Differential Comment Cancelled SCANNED Diff Path Review Cancelled Hypersegmented Neuts Cancelled Atypical Lymphocytes Cancelled Reactive Lymphocytes Cancelled Smudge Cells Cancelled Toxic Granulation Cancelled Toxic Vacuolation Cancelled Dohle Bodies Cancelled Angelic Rods Cancelled Platelet Estimate Cancelled Plt Morphology Comment Cancelled RBC Morphology Cancelled Cancelled Polychromasia Cancelled Hypochromasia Cancelled Basophilic Stippling Cancelled Anisocytosis Cancelled Microcytosis Cancelled Macrocytosis Cancelled Spherocytes Cancelled Sickle Cells Cancelled Target Cells Cancelled Tear Drop Cells Cancelled Ovalocytes Cancelled Stomatocytes Cancelled [place] Bodies Cancelled Brandy Cells Cancelled Bite Cells Cancelled Crenated Cell Cancelled Acanthocytes (Spur) Cancelled Rouleaux Cancelled Schistocytes Cancelled ESR Cancelled 10 Sodium 135 L Potassium 4.3 Chloride 106 Carbon Dioxide 24.0 Anion Gap 5 BUN 13 Creatinine 1.02 Estim Creat Clear Calc 36.09 Est GFR (MDRD) Af Amer 67 Est GFR (MDRD) Non-Af 55 L BUN/Creatinine Ratio 12.7 Glucose 90 Calcium 9.4 Radiography Diagnostic Testing: Clinical Impression(s) from Imaging Studies Brain CT 02/02/24 14:01 IMPRESSION: Negative head/brain CT without intravenous contrast and unchanged when compared to 03/04/2023. Electronically Signed: Celestino Houston MD at 14:47 EDT , CT scan of the brain was obtained. There is no acute intracranial abnormality. This was interpreted by the radiologist and was also independently reviewed by myself. Treatment and Re-Evaluation Narrative: Patient was given Reglan and Benadryl. Patient had minimal improvement with this. Patient was given a dose of Imitrex. Patient was instructed to rest in a dark quiet room. Patient was instructed to follow-up with her primary care physician in 5 to 7 days. Patient understood and was agreeable with the plan. All questions were answered. Discharge Plan Triage Chief Complaint: Headache ED Provider: Mushtaq Mcgarry Dx/Rx/DC Orders Clinical Impression: Headache, Type 2 diabetes mellitus Instructions: ED Headache Unspecified Prescriptions: No Action Eliquis 5 mg tablet 5 mg PO BID vitamin [id number] B1 1,000-100 mg/mL solution IM MONTHLY betamethasone, augmented 0.05 % ointment 1 applic TOPICAL BID Rx Instructions: APPLY OINTMENT TOPICALLY TO AFFECTED AREAS ON BODY TWICE DAILY FOR 2 WEEKS, THEN TAKE 1 WEEK OFF IN BETWEEN APPLICATIONS RESUMING NEEDED FOR FLARING. duloxetine 60 mg capsule,delayed release(DR/EC) 60 mg PO DAILY gabapentin 300 mg capsule 600 mg PO TID Rx Instructions: TAKE 2 CAPSULES BY MOUTH IN THE MORNING, 2 CAPSULES AT DINNER AND 2 CAPSULES AT BEDTIME DAILY. omeprazole 20 mg capsule,delayed release(DR/EC) 20 mg PO DAILY multivitamin Tablet 1 tab PO DAILY omega-3 fatty acids 1,000 mg capsule 1,000 mg PO DAILY metformin 500 mg tablet extended release 24 hr 1,000 mg PO BID ascorbic acid (vitamin C) 500 mg tablet 500 mg PO BID 30 Days Qty: 60 2RF dapagliflozin propanediol [Farxiga] 10 mg tablet 10 mg PO DAILY Kerendia 10 mg tablet 10 mg PO DAILY Primary Care Provider: Anaillia Miramontes Referrals: Analilia Miramontes DO [Primary Care Provider] - 3-5 Days Print Language: Chinese Disposition Disposition: Home, Self Care
[2024-02-02 14:49] LABS: Anion Gap 5 (5-15); BUN 13 mg/dL (7-18); BUN/Creat Ratio 12.7 RATIO (10-20); Calcium,Total 9.4 mg/dL (8.5-10.1); Chloride 106 mmol/L (98-107); Creatinine, Serum 1.02 mg/dL (0.55-1.02); EST Glomerular Filtration Rate 55 mL/min (>60); Est Glom Filt Rate - Afr Amer 67 mL/min (>60); Estimated Creatinine Clearance 36.09 ml/min; Glucose 90 mg/dL (74-106); Potassium 4.3 mmol/L (3.5-5.1); Sodium Level 135 mmol/L (136-145)
[2024-02-02 15:00] VITALS: BP 126/79
[2024-02-02] MEDS: DiphenhydrAMINE 25 MG Capsule PO (15:33)
[2024-02-02] MEDS: Metoclopramide 10 MG Tablet PO (15:33)
--- NOTE | 2024-02-02 16:03 | ED.RN ---
CALLED LAB AT 1600 TO ASK AGAIN ABOUT SOMEONE COMING TO DRAW. STATES THEY ARE IN ROUTE
[2024-02-02 16:49] LABS: Absolute Lymphocyte Count 1.54 X10^3/uL (0.83-4.51); Absolute Neutrophil Count 5.2 X10^3/uL (2.0-7.7); Basophil# 0.06 X10^3/uL; Basophil% 0.8 % (0-1); Eosinophil# 0.22 X10^3/uL; Hematocrit 53.5 % (37-47); Hemoglobin 16.8 g/dL (12.0-15.0); Lymphocyte # 1.54 X10^3/ul (0.83-4.51); Lymphocyte % 20.8 % (19-41); Mean Corp Hgb Conc 31.4 g/dL (32-36); Mean Corpuscular Hgb 27.6 pg (27.0-32.0); Mean Platelet Vol. 11.7 fl (6.2-12.0); Monocyte# 0.37 X10^3/uL; NRBC Flagged by Analyzer 0 % (0-5); Neutrophil # 5.18 X10^3/uL (2.7-7.7); POSITIVE COUNT YES; Platelet Count 160 K/mm3 (150-450); RBC Distribution Width CV 15.3 % (11.6-14.6); RBC Distribution Width SD 48.1 fl (35.1-43.9); Red Blood Count 6.08 M/mm3 (4.2-5.4); White Blood Count 7.4 K/mm3 (4.4-11.0)
[2024-02-02 16:53] LABS: Differential Indicated SCAN CRITERIA MET
[2024-02-02 16:59] VITALS: BP 131/78; PULSE 78; RESP 17
[2024-02-02 17:19] LABS: Differential Comment SCANNED
[2024-02-02 17:20] LABS: Erythrocyte Sedimentation Rate 10 mm/hr (0-30)
[2024-02-02] MEDS: SUMAtriptan 6 MG/0.5 ML Vial SC (17:40)
[2024-02-02 17:43] VITALS: BP 132/98; PULSE 77; RESP 17; TEMP 36.8; O2SAT 97
== END 2024-02-02 17:45 | disposition home or self-care (01) ==
PROVIDERS: Emergency Provider Emergency Medicine; PCP Internal Medicine; Visit Provider Emergency Medicine
DX: R51.9 Headache, unspecified (principal); E11.22 Type 2 diabetes mellitus with diabetic chronic kidney disease; E11.40 Type 2 diabetes mellitus with diabetic neuropathy, unspecified; N18.9 Chronic kidney disease, unspecified; Z86.711 Personal history of pulmonary embolism
CPT/HCPCS: 36415; 70450; 80048; 85025; 85652; 99282; J3030

== ENCOUNTER → 2024-03-24 | Outpatient (CLI) | payer MEDICARE, SELFPAY ==
--- NOTE | 2024-03-24 11:54 | BI_ITS ---
MAMMOGRAPHY - UNILATERAL SCREENING: LEFT BREAST REASON FOR EXAM: Female, 78 years old. Routine annual screening examination (unilateral). PERTINENT HISTORY: Personal history of breast cancer. Prior right mastectomy. TECHNIQUE: Digital unilateral breast arnold (3D mammographic acquisition) in the CC and MLO projections. 2-D mediolateral oblique (MLO) and craniocaudad (CC) views of both breasts were obtained. CAD: Full Field Digital Mammography with Computer Added Detection was performed. COMPARISON: Comparison is made with prior study dated February 08, 2023 and February 05, 2022. FINDINGS: Breast Composition: The breasts are heterogeneously dense, which may obscure small masses. There are no dominant masses or suspicious calcifications. A tissue marker is once again seen within a tiny well-defined nodule in the retroareolar region of the left breast. A tissue clip marker is also seen in the retroareolar region of the left breast as well. No other significant abnormalities are identified. There has been no significant change since the prior study. BI/SCREEN MAMM (CAD) W/RANOLD UNI L IMPRESSION: Stable unilateral screening mammogram. Yearly follow-up mammogram recommended. (A) ASSESSMENT CATEGORY: BIRADS Category 2: Benign. A letter regarding these results will be sent to the patient by the facility within 30 days. Approximately 10% of breast cancers are not detected by mammography. A normal mammogram should not delay biopsy of a clinically suspicious abnormality. [id number] Electronically Signed: Tae Ashford MD at 12:54 EST ,
--- NOTE | 2024-03-24 11:54 | BD_ITS ---
STUDY: DUAL ENERGY X-RAY ABSORPTIOMETRY / DXA REASON FOR EXAM: Female, 78 years old. V76.12ScreeningBONE DENSITY REASON FOR EXAM -- Postmenopausal status TECHNIQUE: Bone Mineral Density (BMD) measurements of lumbar spine and bilateral hips were obtained. COMPARISON: Comparison is made with prior study dated February 05, 2022. FINDINGS: Lumbar Spine (L1-L4): g/cm2 (0.997) / T-score (-0.5) / Z-score (2.2) Findings are suggestive of normal bone density with a low fracture risk. Left Femur Total: g/cm2 (0.790) / T-score (-1.2) / Z-score (0.8) Left Femoral Neck: g/cm2 (0.663) / T-score (-1.7) / Z-score (0.6) Right Femur Total: g/cm2 (0.745) / T-score (-1.6) / Z-score (0.5) Right Femoral Neck: g/cm2 (0.645) / T-score (-1.8) / Z-score (0.5) The T-Scores on the most recent prior examination were: Lumbar Spine (L1-L4): There has been improvement of bone density since the previous examination. Left Femur Total: which represents a worsening of 2.8%. Right Femur Total: which represents a worsening of 0.7%. BD/Dexa Bone Density Study IMPRESSION: The patient is considered osteopenic as outlined below according to World Daniel Organization (WHO) criteria with a moderate fracture risk. There has been worsening of bone density since the previous examination. Reference Information: The T-score is the number of standard deviations above or below the standard which is normal for young adults at their peak bone mineral density. The World Health Organization (WHO) interprets the T-scores as follows: Above -1 Normal bone density Between -1 and -2.5 Osteopenia Equal to / or below -2.5 Osteoporosis As a practical clinical guideline, osteopenia may be graded as follows: Mild -1 through -1.5 Moderate -1.6 through -2.0 Severe -2.1 through -2.4 The Z-score is the number of standard deviations above or below age-matched controls. A Z-score of less than -1.5 would be considered abnormal. References: 1. NIH Osteoporosis and Related Bone Diseases www osteo.org 2. International Society for Clinical Densitometry www iscd.org 3. National Osteoporosis Foundation www nof.org Electronically Signed: Tae Ashford MD at 11:52 EST ,
== END | disposition home or self-care (01) ==
LOC: OPBD 11:51
PROVIDERS: PCP Internal Medicine; Referring Provider Internal Medicine; Visit Provider Internal Medicine
DX: Z12.31 Encounter for screening mammogram for malignant neoplasm of breast (principal); M81.0 Age-related osteoporosis without current pathological fracture
CPT/HCPCS: 77063; 77067; 77080

== ENCOUNTER → 2024-03-25 | Outpatient (CLI) | payer MEDICARE, SELFPAY ==
--- NOTE | 2024-03-25 08:30 | MRI_ITS ---
STUDY: MRI CERVICAL SPINE WITHOUT CONTRAST REASON FOR EXAM: Female, 78 years old. - Cervical radiculopathy TECHNIQUE: Standardized fat and water weighted pulse sequences were obtained in the sagittal and axial planes. COMPARISON: 06/15/2011 FINDINGS: Normal foramen magnum and brainstem-cervical cord junction. Normal craniovertebral junction. Normal anterior atlantoaxial articulation. Normal odontoid process. Normal cervical lordosis. Normal vertebral bodies and posterior osseous elements. C2-3: Normal endplates. Normal disc height, signal and morphology. Normal central canal and intervertebral neural foramina. C3-4: 2 mm of anterolisthesis of C3 on C4 with a moderate broad disc osteophyte complex produce moderate spinal stenosis with abutment of the central spinal cord. Mild bilateral neural foraminal stenosis. C4-5: Moderate bilobed disc osteophyte complex produces moderate spinal stenosis with abutment of the central spinal cord and mild bilateral neural foraminal stenosis. C5-6: Moderate bilateral disc osteophyte complex produces mild spinal stenosis and mild bilateral neural foraminal stenosis. C6-7: Mild broad disc osteophyte complex results in mild spinal stenosis and mild bilateral neural foraminal stenosis. C7-T1: Left uncovertebral hypertrophy produces a mild left neural foraminal stenosis. No central spinal stenosis. Normal cervical cord. Normal visualized soft tissue structures. MRI/Spine Cervical (Routine) IMPRESSION: Multilevel degenerative changes, as described above. Electronically Signed: Ihsan Mccarty MD at 13:23 [facility] ,
== END | disposition home or self-care (01) ==
LOC: MRI 09:29
PROVIDERS: PCP Internal Medicine; Referring Provider Internal Medicine; Visit Provider Internal Medicine
DX: M54.12 Radiculopathy, cervical region (principal)
CPT/HCPCS: 72141

== ENCOUNTER 2024-10-11 09:59 | Outpatient (RCR) | payer MEDICARE, SELFPAY ==
--- NOTE | 2024-10-11 10:55 | HP.PTEVAL_ITS ---
Patient's Visit Information Visit Information Visit Information: HERNESTO TOLEDO is a 78 year old F referred to Physical Therapy by Dr. Analilia Miramontes DO with a diagnosis of L ITB tendonitis, bursitis. Date of Evaluation: 10/11/24 Physical Therapist: Mushtaq Vasquez, DPT, OCS, CSCS Visit Plan Frequency: 1x/Week Duration: 4-6 Weeks Plan: Pt wishes to come infrequently due to cost. Will treat 3-4 visits over 4-6 weeks to instruct adn progress ex to manage OA and ITB. IE HEP : HS, ITB, wquad stretch supine 30 4x 2x/day, hip abd and flexion ext ROM throughout day. Next session: ensure doing well with these and give hip and core strength mat with band then f/u in a couple weeks. Leg pendulums and rollout possible. Subjective Subjective: Pain in L hip groin and lateral and down leg a couple inches. It is present when she is WB, not sitting. Can hurt to turn at night. It has been painful for a month or so without obvious onset incidence. No numbness or tingling outside of neuropathy in B feet, not sure why but has DM and had chemo in past , present for years. Sleep is interrupted only with turning in bed. has to move alot due to OA in neck and back. Not employed, spends day sitting and reading TV and can do these comfortably. Basic ADL all I but can be painful. No regular ex. 2 steps at home with rail not a big issue but painful. Pain L hip pain: Pain Intensity (Out of 10): 0 Pain Intensity Range: 0 and 7 Objective Objective: Walks with cane in R UE mod I , trasnfers I, both are painful lateral adn groin L hip. Some unsteadiness arising from chair. + ADIEL adn FADDIR on L hip very limited ROM to 3 degrees IR, 15 er adn painful, 100 flexion with pain. R hip is 50 er, 15 IR adn 115 flexion without pain. Tender to palpation L ITB and GT bursa area into glus. reflexes 2/3 patella dn achilles Sensation LE WNL to gross light touch. strength hip flexion 3B, abd 3 B pain on L, ext 3 B pain on L. knee flexion eext 3+ B, anklees 4- B. core strength is 3 abs and extension. Balance/Special Test Scores Functional Gait Assessment Score: 20 % Disability: 33.3400 Lower Extremity Functional Score: 22 Goals Goal 1:: Pain in L hip 4/10 at worst with WB adn 50% better Goal Time Frame: 4-6 Weeks Goal 2:: walk with FGA 23/30 and no increased pain Goal Time Frame: 4-6 Weeks Goal 3:: Sleep and roll in bed without waking at night Goal Time Frame: 4-6 Weeks Goal 4:: I appropriate mgmt condition(stretches, ROM, strength) Goal Time Frame: 4-6 Weeks Rehabilitation Potential Physical Therapy Diagnosis: L hip pain likely degenerative in nature limiting comfortab le funciton. Rehabilitation Potential: Fair Anticipated Interventions Patient/Client Instruction: Educate patient on: Condition, Plan of Care and Risk Factors For the Purpose of:: To decrease pain, To increase ROM, To improve muscle performance and motor function, To increase tolerance to activity/condition/position and To improve gait and locomotor functions Therapeutic Exercise to Include: Strength training, Flexibilty training, Passive ROM and Active ROM For the Purpose of:: To decrease pain, To increase ROM, To improve nutrient delivery to tissue and To increase tolerance to activity/condition/position Text: Thank you for the opportunity to evaluate your patient. For Medicare and Medicare HMO plans, please review the plan of care and approve it. It will need to be FAXED BACK to us at [phone] for Medicare purposes. For Medicare only, by signing this I certify the plan of care. Please let me know if there are questions or concerns regarding this plan of care. Physician Signature: Date:
--- NOTE | 2024-12-14 15:53 | HP.PT.NRP ---
Patient Information Patient Information: HERNESTO TOLEDO was seen in my office for initial evaluation on 10/11/24. The following Plan of Care was established for this patient: POC Established Initial Frequency: 1x/Week Initial Duration: 4-6 Weeks Anticipated Interventions Patient/Client Instruction: Educate patient on: Condition, Plan of Care and Risk Factors For the Purpose of:: To decrease pain, To increase ROM, To improve muscle performance and motor function, To increase tolerance to activity/condition/position and To improve gait and locomotor functions Therapeutic Exercise to Include: Strength training, Flexibilty training, Passive ROM and Active ROM For the Purpose of:: To decrease pain, To increase ROM, To improve nutrient delivery to tissue and To increase tolerance to activity/condition/position Last Seen Last Seen: This patient was last seen in our office 10/11/24. Pertinent comments regarding their Physical therapy will appear below: Pt seen one visit of limited POC but did not schedule or attend any further. At this point, it has been over 2 months and I will discontinue from my care. At this point I will be discontinuing this patient from physical therapy. I would be happy to see this patient again in the future if found appropriate by the physician. Thank you! Mushtaq Vasquez, DPT, OCS, CSCS Balance/Gait/Functional tests Balance/Special Test Scores Functional Gait Assessment Score: 20 % Disability: [phone] Lower Extremity Functional Score: 22
== END 2024-10-11 19:00 | disposition home or self-care (01) ==
LOC: PT 09:59
PROVIDERS: PCP Internal Medicine; Referring Provider Internal Medicine; Visit Provider Internal Medicine
DX: M25.552 Pain in left hip (principal); M70.62 Trochanteric bursitis, left hip; M76.32 Iliotibial band syndrome, left leg
CPT/HCPCS: 97110; 97161

== ENCOUNTER → 2025-02-09 | Outpatient (CLI) | payer MEDICARE, SELFPAY | END | disposition home or self-care (01) | PROVIDERS: PCP Internal Medicine; Referring Provider Internal Medicine; Visit Provider Internal Medicine | DX: R19.7 Diarrhea, unspecified (principal) | CPT/HCPCS: 82274; 83630; 87177; 87209 ==

== ENCOUNTER → 2025-03-26 | Outpatient (CLI) | payer MEDICARE, SELFPAY ==
--- NOTE | 2025-03-26 12:30 | BI_ITS ---
EXAM: SCREEN MAMM (CAD) W/ARNOLD UNI L DATE: 03/26/2025 CLINICAL HISTORY: F, Age 79 y/o , SCREENING TECHNIQUE: Procedure Code: [id number] Modality: MG Procedure: SCREEN MAMM (CAD) W/ARNOLD UNI L COMPARISON: Prior exam(s) dated 03/24/2024, 02/08/2023 and 02/05/2022. FINDINGS: TISSUE DENSITY: There are scattered areas of fibroglandular density. Bilateral Breast Mammographic Findings: No significant masses, calcifications or other abnormalities are identified. A radiopaque clip is seen in the left breast. Stable nodular masslike densities are seen. Benign vascular calcifications and round microcalcifications are seen. BI/SCREEN MAMM (CAD) W/ARNOLD UNI L IMPRESSION: Benign screening mammogram left breast. OVERALL FINAL ASSESSMENT BI-RADS 2: BENIGN RECOMMENDATION: Routine annual follow-up in 1 Year Additional Recommendation none A letter with findings and recommendations will be mailed to the patient. Reading Location: [id number]
== END | disposition home or self-care (01) ==
LOC: OPBI 11:58
PROVIDERS: PCP Internal Medicine; Referring Provider Internal Medicine; Visit Provider Internal Medicine
DX: Z12.31 Encounter for screening mammogram for malignant neoplasm of breast (principal)
CPT/HCPCS: 77063; 77067